=== PATIENT | male | born 1945 | race Caucasian/White ===

== ENCOUNTER 2019-08-14 11:20 | Emergency (ER) | payer OTHER, SELFPAY ==
[2019-08-14 11:25] VITALS: BP 155/85; PULSE 98; RESP 22; TEMP 36.6; O2SAT 94; BMI 40.3
--- NOTE | 2019-08-14 12:01 | XR_ITS ---
WS: [id number] PORTABLE CHEST HISTORY: cough/congestion COMPARISON: 04/11/2018 New interstitial thickening in the lower lung carson bilaterally. Pulmonary vasculature is normal. No pleural effusion or pneumothorax. Cardiac size: Mildly enlarged cardiac silhouette. Mediastinum/Aorta: Mild ectasia aorta. Bilateral AC joint arthritis. XR/XR chest 1V portable [id number] IMPRESSION: Mild bilateral lower lobe interstitial thickening and peribronchial inflammator y changes.
--- NOTE | 2019-08-14 12:10 | W.ED.GENADLT ---
HPI - General Adult General: Chief complaint: General Medical Stated complaint: cough/sob Time Seen by Provider: 08/14/19 12:10 Source: patient and family Mode of arrival: ambulatory Limitations: no limitations History of Present Illness: HPI narrative: Patient is a 74-year-old male here with his for complaints of a productive cough, chest congestion, nasal discharge/congestion, sinus pressure over the past 3 to 4 days; denies chest pain, SOB, difficulty breathing, hemoptysis, or fevers Onset (ago): day(s) Associated symptoms: Deny chest pain, dyspnea, headache(s), nausea, rash, palpitations or vomiting Review of Systems Const: Reports: body aches; Denies: fever, chills or fatigue Eyes: Denies: change in vision, blurry vision, photophobia, eye discomfort or eye discharge ENMT: Reports: throat pain, painful swallowing, nasal discharge, nasal congestion, post nasal drip and facial/sinus pain; Denies: enlarged tonsils, swelling of lips/tongue, oral sores/lesions, ear pain or ear discharge Card: Denies: chest pain, palpitations, lightheadedness or pre-syncope Resp: Reports: productive cough and chest congestion; Denies: shortness of breath, non-productive cough, wheezing, stridor, pain on inspiration, change in phlegm color or coughing up blood GI: Denies: abdominal pain, nausea or vomiting : Denies: flank pain, difficulty urinating or painful urination Musc: Denies: neck pain or back pain Skin/Breast: Denies: rash Neuro: Denies: headache All/Imm: Denies: facial swelling or seasonal allergies PFSH ED PFSH: Statuses (acute, chronic, etc) shown below reflect problem list status as previously entered and may not be historically accurate Social History Smoking and tobacco status: former smoker Physical Exam Const: COMMON NORMALS: no apparent distress, average body habitus, oriented x3, alert and well nourished HENMT: COMMON NORMALS: normocephalic, head/scalp atraumatic, hearing grossly normal bilaterally, external ears normal, EAC's normal, TM's normal bilaterally, external nose normal, nasal mucous membranes and turbinates normal, moist oral mucous membranes and oropharynx normal HEAD & SCALP: normocephalic and atraumatic FACE & SINUS: normal facial exam and sinuses nontender NOSE: external nose normal and nasal mucous membranes and turbinates normal EXTERNAL EAR: Yes external ears normal EXTERNAL AUDITORY CANAL: EAC's normal TYMPANIC MEMBRANE: TM's normal bilaterally THROAT: posterior oropharynx normal, tonsils normal and uvula midline Eye: COMMON NORMALS: PERRL, EOMs intact bilaterally and conjunctivae normal CONJUNCTIVA: Yes conjunctivae normal PUPIL: Yes PERRL Neck/C-Spine: COMMON NORMALS: no lymphadenopathy Resp: COMMON NORMALS: normal respiratory effort and clear to auscultation bilaterally AUSCULTATION: clear to auscultation bilaterally Cardio: COMMON NORMALS: regular rate and regular rhythm RATE: regular rate RHYTHM: regular rhythm Neuro: COMMON NORMALS: oriented x3 SENSORIUM/ORIENTATION: Yes alert Skin: COMMON NORMALS: no rashes or lesions noted GENERAL SKIN EXAM: no rashes or lesions noted Course Vital Signs: Vital signs: Vital Signs Temperature 97.8 F 08/14/19 11:25 Pulse Rate 92 08/14/19 12:11 Respiratory Rate 18 08/14/19 12:11 Blood Pressure 132/75 08/14/19 12:11 Pulse Oximetry 96 08/14/19 12:11 MDM - General Adult MDM Narrative: Medical decision making narrative: pt clinically appears well, vitals are stable; labs are non-concerning; CXR shwoing some bilateral interstitial thinking/peribronchial inflammation; given his hx of COPD, I will go ahead and place him on levaquin and give him something for the cough; recommends he follows up with PCP in a few days for re-evaluation; return to ED precautions given Lab Data: Labs: Lab Results 08/14/19 08/14/19 08/14/19 Range/Units 12:23 12:24 12:24 WBC 9.1 (4.0-10.0) 10^3/ uL RBC 4.49 (4.1-5.3) 10^6/u L Hgb 14.0 (11.7-16.6) g/dL Hct 42.0 (42.0-52.0) % MCV 93.5 (80-94) fL MCH 31.2 (28.0-34.0) pg MCHC 33.3 (30.0-36.0) g/dL RDW 11.7 L (12.1-15.1) % Plt Count 160 (130-400) 10^3/c mm MPV 10.4 (7.4-10.4) fL Neut % (Auto) 67.1 % Lymph % (Auto) 19.6 % Kimball % (Auto) 8.4 % Eos % (Auto) 4.0 % Baso % (Auto) 0.5 % Neut # (Auto) 6.1 (1.8-7.7) 10^3/u L Lymph # (Auto) 1.8 (0.8-4.8) 10^3/u L Kimball # (Auto) 0.8 (0.2-0.9) 10^3/u L Eos # (Auto) 0.4 (0.0-0.8) 10^3/u L Baso # (Auto) 0.1 (0.0-0.1) 10^3/u L Nucleated RBC % (a uto) 0 % Nucleated RBCs # 0.0 /100WBC Sodium 136 (136-145) mmol/L Potassium 3.9 (3.5-5.1) mmol/L Chloride 98 (98-107) mmol/L Carbon Dioxide 23 (22-29) mmol/L Anion Gap 18.9 (5-19) BUN 16 (8-23) mg/dL Creatinine 0.8 (0.7-1.2) mg/dL Glucose 264 H (74-106) mg/dL Calcium 10.0 (8.8-10.2) mg/Dl Total Bilirubin 0.6 (0.15-1.2) mg/dL AST 22 (0-40) U/L ALT 22 (0-41) U/L Alkaline Phosphata se 138 H (40-130) IU/L Total Protein 8.2 (6.6-8.7) g/dL Albumin 3.9 (3.5-5.2) g/dL Globulin 4.3 (1.3-4.6) g/dL Influenza Type A A g Negative (Negative) POC Influenza B Ag Negative (Negative) Imaging Data^: CXR: Radiologist's impression: [address] [address] XRay Report Signed Patient: Pasha Cobb Unit #: [id number] : 1945 Age/Sex: 74 / M ADM Date: 08/14/19 Loc: ER Room/Bed: Attending Dr: Ordering Provider/Ordering MD: Fabiola Horn Date of Service: 08/14/19 Procedure(s): XR chest 1V portable [id number] Accession Number(s): [id number] Report Number: [id number] WS: [id number] PORTABLE CHEST HISTORY: cough/congestion COMPARISON: 04/11/2018 New interstitial thickening in the lower lung carson bilaterally. Pulmonary vasculature is normal. No pleural effusion or pneumothorax. Cardiac size: Mildly enlarged cardiac silhouette. Mediastinum/Aorta: Mild ectasia aorta. Bilateral AC joint arthritis. XR/XR chest 1V portable [id number] IMPRESSION: Mild bilateral lower lobe interstitial thickening and peribronchial inflammatory changes. Dictated By: Ana Christensen DO Signed By: Ana Christensen DO Signed Date/Time: 08/14/19 1240 DD/ 1239 Discharge Plan Discharge Patient Disposition: Home, Self-Care Clinical Impression: Acute bacterial bronchitis Condition: Stable Prescriptions: New promethazine-codeine 6.25-10 mg/5 mL syrup 5 ml PO Q4H PRN (Reason: cough) Qty: 150 RF: 0 Levaquin 750 mg tablet 750 mg PO DAILY 5 Days Qty: 5 RF: 0 Discharge Orders: Discharge Order (Routine); Ordered 08/14/19 Ordered By: Fabiola Horn Referrals: Eduardo Jasmine [Primary Care Provider] - Discharge Diet: Usual diet Discharge Activity: Increase activity as tolerated Activity Restrictions/Additional Instructions: Please follow-up with primary care in 3 to 5 days if you are not improving. Return to emergency department for any worsening symptoms, difficulty breathing, shortness of breath, chest pains, or fevers greater than 100.4. Coding Level of Care Code ED Healthcare Advisory Services Manager for Chg Fwd Exam Problem Focused
[2019-08-14 12:11] VITALS: BP 132/75; PULSE 92; RESP 18; O2SAT 96
--- NOTE | 2019-08-14 12:14 | PC.NURSE ---
Patient states that Donald he began to get sick. Patient reports that he has had cough, congestion, headache, fever, stomach pain, chills, and weakness. Patient does report a history of COPD.
[2019-08-14 12:32] LABS: Basophils # 0.1 10^3/uL (0.0-0.1); Basophils % 0.5 %; Eosinophils # 0.4 10^3/uL (0.0-0.8); Lymphocytes # 1.8 10^3/uL (0.8-4.8); Lymphocytes % 19.6 %; Mean Corpuscular HGB Conc 33.3 g/dL (30.0-36.0); Mean Corpuscular Hemoglobin 31.2 pg (28.0-34.0); Mean Corpuscular Volume 93.5 fL (80-94); Mean Platelet Volume 10.4 fL (7.4-10.4); Monocytes # 0.8 10^3/uL (0.2-0.9); Monocytes % 8.4 %; Neutrophils # 6.1 10^3/uL (1.8-7.7); Neutrophils % 67.1 %; Nucleated Red Blood Cells % 0 %; Platelet Count 160 10^3/cmm (130-400); Red Blood Count 4.49 10^6/uL (4.1-5.3); Red Cell Distribution Width 11.7 % (12.1-15.1); White Blood Count 9.1 10^3/uL (4.0-10.0)
[2019-08-14 12:50] LABS: Alanine Aminotransferase 22 U/L (0-41); Albumin Level 3.9 g/dL (3.5-5.2); Alkaline Phosphatase 138 IU/L (40-130); Anion Gap 18.9 (5-19); Aspartate Amino Transferase 22 U/L (0-40); Blood Urea Nitrogen 16 mg/dL (8-23); Carbon Dioxide 23 mmol/L (22-29); Chloride 98 mmol/L (98-107); Globulin 4.3 g/dL (1.3-4.6); Glucose 264 mg/dL (74-106); Potassium 3.9 mmol/L (3.5-5.1); Sodium 136 mmol/L (136-145); Total Bilirubin 0.6 mg/dL (0.15-1.2); Total Protein 8.2 g/dL (6.6-8.7)
[2019-08-14 12:52] LABS: Influenza A by IFA Negative (Negative); Influenza B by IFA Negative (Negative)
[2019-08-14 13:19] VITALS: BP 142/71; PULSE 88; RESP 18; O2SAT 92
== END 2019-08-14 13:20 | disposition home or self-care (01) ==
LOC: ER 13:13
PROVIDERS: Emergency Provider Physician Assistant; Family Provider Internal Medicine; PCP Internal Medicine
DX: J20.9 Acute bronchitis, unspecified (principal); Z87.891 Personal history of nicotine dependence
CPT/HCPCS: 36415; 71045; 80053; 85025; 87804; 99281

== ENCOUNTER → 2019-08-27 10:29 | Outpatient (BNVA) | payer OTHER, SELFPAY | PROVIDERS: Family Provider Internal Medicine; PCP Internal Medicine; Visit Provider Podiatrist Foot & Ankle Surgery | DX: M79.671 Pain in right foot (principal); M79.672 Pain in left foot | CPT/HCPCS: 73600; 73630; 77077 ==

== ENCOUNTER → 2019-09-17 11:07 | Outpatient (BNVA) | payer OTHER, SELFPAY | PROVIDERS: Family Provider Internal Medicine; PCP Internal Medicine; Visit Provider Podiatrist Foot & Ankle Surgery | DX: M79.671 Pain in right foot (principal); M79.672 Pain in left foot; M25.571 Pain in right ankle and joints of right foot; M77.32 Calcaneal spur, left foot | CPT/HCPCS: 73630 ==

== ENCOUNTER → 2019-09-18 13:46 | Outpatient (BNVA) | payer OTHER, SELFPAY | PROVIDERS: Family Provider Internal Medicine; PCP Internal Medicine; Visit Provider Anesthesiology | DX: M54.40 Lumbago with sciatica, unspecified side (principal); M54.2 Cervicalgia; M25.50 Pain in unspecified joint; Z79.891 Long term (current) use of opiate analgesic | CPT/HCPCS: 99213; 99214 ==

== ENCOUNTER → 2019-10-15 09:24 | Outpatient (BNVA) | payer OTHER, SELFPAY | PROVIDERS: Family Provider Internal Medicine; PCP Internal Medicine; Visit Provider Podiatrist Foot & Ankle Surgery | DX: M79.671 Pain in right foot (principal); M79.672 Pain in left foot; M25.571 Pain in right ankle and joints of right foot; S92.912A Unspecified fracture of left toe(s), initial encounter for closed fracture; S93.401A Sprain of unspecified ligament of right ankle, initial encounter; M25.372 Other instability, left ankle; M77.32 Calcaneal spur, left foot; M77.31 Calcaneal spur, right foot; M25.471 Effusion, right ankle; X58.XXXA Exposure to other specified factors, initial encounter | CPT/HCPCS: 73610; 77077 ==

== ENCOUNTER 2020-02-06 10:59 | Outpatient (CLI) | payer OTHER, SELFPAY ==
--- NOTE | 2020-02-06 11:21 | XR_ITS ---
WS: [id number] Left foot, 3 views, 02/06/2020 Clinical Data: fractures Comparison: Left foot, 10/15/2019 Findings: The fractures of the bases of the left fourth and fifth proximal phalanges remain unchanged. No new f ractures are seen. There is a bunion at the head of the left first metatarsal. The bimalleolar fractu re internal fixation remains unchanged. There is a plantar spur. XR/XR foot LT min 3V* [id number] Impression: 1. No change in appearance of fractures of bases of the left fourth and fifth p roximal phalange ease. 2. Stable appearance of bimalleolar fracture repair.
== END 2020-02-06 11:00 | disposition home or self-care (01) ==
PROVIDERS: Family Provider Internal Medicine; PCP Internal Medicine; Visit Provider Podiatrist Foot & Ankle Surgery
DX: S92.515D Nondisplaced fracture of proximal phalanx of left lesser toe(s), subsequent encounter for fracture with routine healing (principal); X58.XXXD Exposure to other specified factors, subsequent encounter
CPT/HCPCS: 73630

== ENCOUNTER → 2020-02-25 09:55 | Outpatient (BNVA) | payer OTHER, SELFPAY | PROVIDERS: Family Provider Internal Medicine; PCP Family Medicine; Visit Provider Internal Medicine Rheumatology | DX: L40.8 Other psoriasis (principal); Z79.899 Other long term (current) drug therapy; Z11.59 Encounter for screening for other viral diseases; Z11.1 Encounter for screening for respiratory tuberculosis; L40.50 Arthropathic psoriasis, unspecified | CPT/HCPCS: 36415; 99204 ==

== ENCOUNTER 2020-02-25 11:57 | Outpatient (CLI) | payer OTHER, SELFPAY ==
--- NOTE | 2020-02-25 12:08 | XR_ITS ---
WS: [id number] FOOT RIGHT TECHNIQUE: 3 views of the right foot CLINICAL INFORMATION: psoriatic arthritis COMPARISON: None. FINDINGS: Osteopenia. Mild hallux valgus. Soft tissue edema. Plantar calcaneal spurring. No evidence of acute fracture or dislocation. Normal tarsal metatarsal alignment. Normal calcaneus. N ormal visualized talar dome. XR/XR foot RT min 3V* [id number] IMPRESSION: No acute right foot findings.
--- NOTE | 2020-02-25 12:08 | XR_ITS ---
WS: [id number] CERVICAL SPINE TECHNIQUE: 3 views of the cervical spine CLINICAL INFORMATION: psoriatic arthritis COMPARISON: None. FINDINGS: Straightening of the normal cervical lordosis. Mild spondylitic changes. Mild disc space narrowing C4 -C5. Normal prevertebral soft tissues. Moderate facet arthropathy in the mid cervical spine. Normal C 1-2 articulation. Mild anterior wedging in the upper thoracic spine at T3 and T4 XR/XR cervical spine 3V* [id number] IMPRESSION: 1. Moderate spondylitic changes 2. Mild anterior wedging upper thoracic spine at T3 and T4.
--- NOTE | 2020-02-25 12:08 | XR_ITS ---
WS: [id number] FOOT LEFT TECHNIQUE: 3 views of the left foot CLINICAL INFORMATION: psoriatic arthritis COMPARISON: None. FINDINGS: Stable fractures involving the bases of the fourth and fifth proximal phalanges. Normal tarsal metata rsal alignment. Normal calcaneus. Normal visualized talar dome. Osteopenia. Prominent plantar calcane al spur. Postoperative changes distal fibula with plate and screw fixation. Screw fixation across the ankle mortise. XR/XR foot LT min 3V* [id number] IMPRESSION: 1. Osteopenia with postoperative changes described above. 2. Stable fractures involving the base of the fourth and fifth proximal phalan ges. 3. Prominent plantar calcaneal spurring.
--- NOTE | 2020-02-25 12:08 | XR_ITS ---
WS: [id number] PROCEDURE: XR chest 2V* [id number] CLINICAL INFORMATION: psoriatic arthritis COMPARISON: August 14, 2019 FINDINGS: Heart: Normal cardiac silhouette. Lungs: Moderate chronic emphysematous changes. No acute pulmonary infiltrates. Bones: Mild thoracic curve convex right. Mild thoracic kyphosis. XR/XR chest 2V* [id number] IMPRESSION: No acute chest findings.
--- NOTE | 2020-02-25 12:08 | XR_ITS ---
WS: [id number] HAND LEFT TECHNIQUE: 3 views of the left hand CLINICAL INFORMATION: psoriatic arthritis COMPARISON: None. FINDINGS: Normal metacarpals. Normal MCP joint. Metacarpal heads are normal in appearance. Normal PIP and DIP j oints. No evidence of acute fracture or dislocation. Radiocarpal joint: Normal. Carpal bones: Normal. XR/XR hand LT min 3V* [id number] IMPRESSION: Normal left hand.
--- NOTE | 2020-02-25 12:08 | XR_ITS ---
WS: [id number] HAND RIGHT TECHNIQUE: 3 views of the right hand CLINICAL INFORMATION: psoriatic arthritis COMPARISON: None. FINDINGS: Normal metacarpals. Normal MCP joint. Metacarpal heads are normal in appearance. Normal PIP and DIP j oints. No evidence of acute fracture or dislocation. Radiocarpal joint: Normal. Carpal bones: Normal. XR/XR hand RT min 3V* [id number] IMPRESSION: Normal right hand.
== END 2020-02-25 11:58 | disposition home or self-care (01) ==
LOC: RADWPI 12:01
PROVIDERS: Family Provider Family Medicine; PCP Family Medicine; Visit Provider Internal Medicine Rheumatology
DX: L40.50 Arthropathic psoriasis, unspecified (principal); M48.54XA Collapsed vertebra, not elsewhere classified, thoracic region, initial encounter for fracture; M85.872 Other specified disorders of bone density and structure, left ankle and foot; S92.912A Unspecified fracture of left toe(s), initial encounter for closed fracture; M77.32 Calcaneal spur, left foot; Z79.899 Other long term (current) drug therapy; Z11.59 Encounter for screening for other viral diseases; X58.XXXA Exposure to other specified factors, initial encounter
CPT/HCPCS: 71046; 72040; 73130; 73630; 80076; 82306; 82565; 85025; 85651; 86140; 86431; 86480; 86704; 86803; 87340

== ENCOUNTER 2020-10-16 10:16 | Outpatient (CLI) | payer OTHER, SELFPAY ==
--- NOTE | 2020-10-16 10:28 | CT_ITS ---
WS: [id number] CT NECK TECHNIQUE: Contrast-enhanced CT of the neck with coronal and sagittal reformatted images. CLINICAL INFORMATION: ACUTE CONTACT OTITIS EXTERNAL, LEFT EAR COMPARISON: None. DLP: 1657.[address] scans at [facility] use at least one of these dose optimization techniques: automat ed exposure control; mA and/or kV adjustment per patient size (includes targeted exams where dose is matched to clinical indication); or iterative reconstruction. FINDINGS: Parotid glands are normal. Normal submandibular glands. Right mastoid air cells well aerated. Prior p ostoperative changes canal wall up left mastoidectomy. Mastoidectomy bowl is well aerated. Paranasal sinuses are well aerated. Small retention cyst right maxillary sinus. Normal parapharyngeal fat. Normal posterior nasopharynx. No cervical lymphadenopathy. No evidence of supraglottic or glottic mass. Normal thyroid gland. Lung apices are well aerated. Mild spondylitic ch anges cervical spine. CT/CT neck w con* [id number] IMPRESSION: 1. Prior postoperative changes canal wall up left mastoidectomy. Mastoidectomy bowl is well aerated. Minimal mucosal thickening in the left mastoid tip. 2. Right mastoid air cells and paranasal sinuses are well aerated. Small reten tion cyst right maxillary sinus. 3. No cervical lymphadenopathy. 4. Salivary glands are normal. 5. Middle ears are well aerated bilaterally.
[2020-10-16 10:52] LABS: Blood Urea Nitrogen 15 mg/dL (8-23)
[2020-10-16] MEDS: iohexol 300 mg/mL 100 mL Btl IV (10:59)
== END 2020-10-16 10:17 | disposition home or self-care (01) ==
LOC: RADWPI 10:17
PROVIDERS: PCP Family Medicine; Visit Provider Specialist
DX: H60.532 Acute contact otitis externa, left ear (principal); H92.02 Otalgia, left ear; J34.1 Cyst and mucocele of nose and nasal sinus
CPT/HCPCS: 70491; 82565; 84520; Q9967

== ENCOUNTER 2021-03-04 11:18 | Emergency (ER) | payer OTHER, MEDICARE, SELFPAY ==
[2021-03-04 12:13] VITALS: BP 148/80; PULSE 74; RESP 18; TEMP 36.6; O2SAT 93; BMI 36.8
--- NOTE | 2021-03-04 12:47 | W.ED.BACK ---
HPI - Back Pain/Injury General: Chief Complaint: Back Pain/Injury Stated Complaint: Lower back pain Time Seen by Provider: 03/04/21 12:28 History of Present Illness: HPI Narrative: Patient complains about low back pain. Has history of back problems. Been on tractor digging up rocks in his yard for the last couple weeks and back started hurting. Patient denies any problems urination denies any hematuria difficulty urination or abdominal discomfort no nausea vomiting fever chills. Hurts to get up out of a chair to walk around and to set up with the pain being located low back MD elicited complaint: back pain Pertinent past history: prior back pain Onset (ago): week(s) Timing: intermittent Similar Symptoms Previously: Yes Quality: aching Location: lumbar spine Radiation: none Exacerbating factors: movement, sitting upright and walking Relieving factors: immobilization Associated symptoms: Reports no associated symptoms; Deny abdominal pain, chills, fever(s), nausea or vomiting Review of Systems Const: Denies: fever(s), chills or body aches Eyes: Denies: change in vision or blurry vision ENMT: Denies: throat pain or nasal congestion Card: Denies: chest pain or dyspnea on exertion Resp: Denies: dyspnea, productive cough or non-productive cough GI: Denies: abdominal pain, nausea or vomiting : Denies: difficulty urinating Musc: Reports: back pain; Denies: extremity pain Skin/Breast: Denies: rash Neuro: Denies: headache(s) Psych: Denies: anxiety or depression Robin/Lymph: Denies: easy bruising PFS ED PFSH: Medical History (Updated 03/04/21 @ 12:37 by DIMAS Perea) Acquired hammer toe Acute back pain with sciatica Acute carpal tunnel syndrome of left wrist Acute carpal tunnel syndrome of right wrist Acute joint pain Diabetes mellitus Encounter for long-term opiate analgesic use High risk medication use History of [place] spotted fever Hyperlipidemia Immunization counseling Other instability, left ankle Post-traumatic arthritis of left ankle Psoriasis Psoriatic arthritis PVD (peripheral vascular disease) Thoracic outlet syndrome Venous stasis Surgical History History of angioplasty History of cholecystectomy Family History Other CAD (coronary artery disease) Cancer Diabetes Hyperlipidemia Hypertension Denies family history of Rheumatoid arthritis Lupus Social History Smoking and tobacco status: former smoker Second hand smoke exposure: No Alcohol intake: never History of recent travel: No Physical Exam Const: COMMON NORMALS: no acute distress : COMMON NORMALS: Yes no CVA tenderness BLADDER/KIDNEY EXAM: Yes no CVA tenderness Back/Pelvis: COMMON NORMALS: no CVA tenderness LUMBAR SPINE/LOWER BACK: Yes normal to inspection and Yes lumbar ROM normal Psych: COMMON NORMALS: mental status grossly normal Course Vital Signs: Vital signs: Vital Signs Temperature 97.8 F 03/04/21 12:13 Pulse Rate 74 03/04/21 12:13 Respiratory Rate 18 03/04/21 12:13 Blood Pressure 148/80 03/04/21 12:13 Pulse Oximetry 93 03/04/21 12:13 Discharge Plan Discharge Patient Disposition: Home Clinical Impression: Acute exacerbation of chronic low back pain Condition: Stable Prescriptions: New prednisone 20 mg tablet 20 mg PO DAILY Qty: 7 RF: 0 Celebrex 100 mg capsule 100 mg PO BID Qty: 20 RF: 0 No Action (DME) Diabetic shoes with molded inserts See Rx Instructions .Route .MEDSUPPLY Qty: 1 RF: 0 alendronate 70 mg tablet PO .weekly RF: 0 mometasone 0.1 % solution 1 applic TOPICAL DAILY Qty: 60 RF: 3 ketoconazole 2 % shampoo 1 applic TOPICAL .2 x weekly Qty: 120 RF: 3 triamcinolone acetonide 0.1 % ointment 1 applic TOPICAL BID Qty: 453.6 RF: 2 tramadol 50 mg tablet 50 mg PO BID PRNRF: 0 baclofen 20 mg tablet 20 mg PO QID RF: 0 albuterol sulfate [ProAir HFA] 90 mcg/actuation HFA aerosol inhaler 2 puff INHALATION Q6H PRNRF: 0 aspirin [Adult Low Dose Aspirin] 81 mg tablet,delayed release (DR/EC) 81 mg PO DAILY RF: 0 dextran 70-hypromellose Dropperette 1 drop ophthalmic (eye) DAILY PRNRF: 0 lisinopril 5 mg tablet 5 mg PO DAILY RF: 0 metoprolol succinate 25 mg capsule,sprinkle,ER 24hr 25 mg PO DAILY RF: 0 tiotropium bromide 2.5 mcg/actuation mist 2 inh INHALATION QAM RF: 0 (DME) Diabetic shoes with inserts Qty: 1 RF: 0 metformin 1,000 mg tablet 500 mg PO BID RF: 0 Insulin SUBCUT RF: 0 montelukast 10 mg tablet 10 mg PO DAILY RF: 0 pregabalin 100 mg capsule 100 mg PO DAILY RF: 0 trazodone 100 mg tablet 100 mg PO .hs RF: 0 mupirocin 2 % ointment 1 applic TOPICAL BID Qty: 30 RF: 0 Tremfya 100 mg/mL auto-injector 100 mg SUBCUT ONCE Qty: 1 RF: 1 Tremfya 100 mg/mL auto-injector 100 mg SUBCUT ONCE Qty: 1 RF: 4 fluocinonide 0.05 % ointment 1 applic TOPICAL BID Qty: 60 RF: 4 Discharge Orders: Discharge ED (Routine); Ordered 03/04/21 Ordered By: Jeffrey De La Cruz Referrals: Ligia Parker MD [Primary Care Provider] - Discharge Diet: As Directed Discharge Activity: Increase activity as tolerated Patient Instructions: Low Back Strain (ED), Back Pain (ED) Activity Restrictions/Additional Instructions: Follow-up with medical provider as directed. Take medications as prescribed. Return to the ER or your medical provider if condition worsens. Please read and understand discharge instructions. If any questions ask please. Alternate ice and heat to the low back. No heavy lifting. Stay off the tractor for next couple weeks. [facility] noted. 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
== END 2021-03-04 12:54 | disposition home or self-care (01) ==
PROVIDERS: Emergency Provider Nurse Practitioner Family; PCP Family Medicine
DX: M54.5 Low back pain (principal); G89.29 Other chronic pain; E78.5 Hyperlipidemia, unspecified; E11.51 Type 2 diabetes mellitus with diabetic peripheral angiopathy without gangrene; Z79.4 Long term (current) use of insulin; Z87.891 Personal history of nicotine dependence
CPT/HCPCS: 99281

== ENCOUNTER 2021-04-09 10:04 | Outpatient (CLI) | payer OTHER, MEDICARE, SELFPAY ==
[2021-04-09 10:58] LABS: Basophils % 0.5 %; Eosinophils # 0.2 10^3/uL (0.0-0.8); Eosinophils % 2.5 %; Hematocrit 42.1 % (42.0-52.0); Lymphocytes # 1.5 10^3/uL (0.8-4.8); Lymphocytes % 19.8 %; Mean Corpuscular HGB Conc 33.3 g/dL (30.0-36.0); Mean Corpuscular Volume 96.1 fl (80-94); Monocytes # 0.5 10^3/uL (0.2-0.9); Neutrophils # 5.36 10^3/uL (1.8-7.7); Neutrophils % 69.9 %; Nucleated Red Blood Cells % 0 %; Platelet Count 134 10^3/cmm (130-400); Red Blood Count 4.38 10^6/uL (4.1-5.3); Red Cell Distribution Width 12.5 % (12.1-15.1); White Blood Count 7.7 10^3/uL (4.0-10.0)
[2021-04-09 11:27] LABS: Alanine Aminotransferase 30 U/L (0-41); Alkaline Phosphatase 91 IU/L (40-130); Anion Gap 12.3 (5-19); Aspartate Amino Transferase 30 U/L (0-40); Blood Urea Nitrogen 12 mg/dL (8-23); Calcium 8.8 mg/dL (8.5-10.5); Carbon Dioxide 30 mmol/L (22-29); Chloride 100 mmol/L (98-107); Globulin 3.1 g/dL (1.3-4.6); Glucose 259 mg/dL (65-115); Osmolality Calculated 295 mOsm/kg (285-295); Potassium 4.3 mmol/L (3.5-5.1); Sodium 138 mmol/L (136-145); Total Bilirubin 0.5 mg/dL (0.15-1.2); Total Protein 7.1 g/dL (6.6-8.7)
[2021-04-09 11:28] LABS: HIV 1 & 2 Antibody Non-Reactive (Non-Reactiv); HIV 1 & 2 Antigen Non-Reactive (Non-Reactiv)
[2021-04-09 11:50] LABS: Hepatitis A Antibody IgM Non-Reactive (Nonreactive); Hepatitis B Core AB, Total Non-Reactive (Nonreactive); Hepatitis B Surface AB 3.5 (11.5-1000); Hepatitis B Surface Antigen Non-Reactive (Nonreactive); Hepatitis C Virus Antibody Non-Reactive (Nonreactive)
[2021-04-11 13:02] LABS: Quantiferon Mitogen >10.00 IU/mL; Quantiferon Nil 0.02 IU/mL; Quantiferon TB Gold NEGATIVE (NEGATIVE)
== END 2021-04-09 10:05 | disposition home or self-care (01) ==
PROVIDERS: PCP Family Medicine; Visit Provider Dermatology
DX: Z79.899 Other long term (current) drug therapy (principal); L40.9 Psoriasis, unspecified; L40.50 Arthropathic psoriasis, unspecified
CPT/HCPCS: 36415; 80053; 85025; 86480; 86705; 86706; 86709; 86803; 87340; 87806

== ENCOUNTER 2021-05-14 06:51 | Outpatient (CLI) | payer OTHER, SELFPAY ==
[2021-05-14 07:09] VITALS: BMI 40.6
--- NOTE | 2021-05-14 07:56 | NMCV_ITS ---
NM jennifer perf SPECT r/s* [id number] Pasha Cobb Age: 76 Gender: M : 1945 Exam Date: 05/14/2021 08:14 Ordering Phys: Josr Romero MD Technologist: ONUR Garcia Exam Location: [facility] Indications: SHORTNESS OF BREATH STRESS TEST Please see separate stress test report in [facility] for full findings IMAGE PROTOCOL Rest/Stress 1 Lexiscan Day Radiopharmaceutical Dose (mCi) Administration Site Administered by Rest: Tc-99m 10.9 IV ONUR Elder Sestamibi Stress:Tc-99m 32.6 IV ONUR Elder Sestamibi Rest: 14-May-2021 60 Discovery 630 Stress: 14-May-2021 30 Discovery 630 0.4mg Lexiscan. Images obtained in supine and prone position. SPECT RESULTS Technical Quality: Excellent Raw Data Analysis: Normal Image Corrections: No attenuation or motion correction applied Summed Stress Score: 0 Summed Rest Score: 1 Summed Difference Score: 0 PERFUSION FINDINGS Slightly decreased tracer uptake was noted in the inferior wall region. No significant reversibility was noted in this area. FUNCTIONAL RESULTS (calculated via Gated SPECT) Stress Image LV EF (%): 66 Stress EDV (mL):82 TID: 1.09 Stress ESV (mL):28 FUNCTIONAL FINDINGS: Segmental wall motion analysis revealing no gross wall motion normalities. IMPRESSIONS 1. Myocardial perfusion imaging revealing slightly decreased persistent tracer uptake in the inferior wall region, most likely represent attenuation artifact. 2. Normal LV ejection fraction 66%. 3. LV wall motion analysis revealing no gross wall motion normalities. 4. Normal LV volume. No significant coronary ischemia, based on the above findings Dr Ken Diaz MD FACC (Electronically Signed) Final Date: 14 May 2021 13:30 S
--- NOTE | 2021-05-14 07:56 | ECG_ITS ---
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 Interpretive Statements NAME OF STUDY: LEXISCAN SESTAMIBI STRESS TEST INDICATION: Shortness of Breath PROCEDURE: At the baseline, the EKG revealed sinus rhythm with a sinus arrhythmia. The baseline blood pressure was 137/80 mm Hg with a heart rate of 73 beats/min. Lexiscan was infused over a period of 20 seconds. A total of 0.4 milligrams of Lexiscan was infused. The stress phase was continued for a total of 5 minutes. Heart rate at the end of the stress phase was 81 with a blood pressure. The EKG at the peak infusion revealed no significant changes. Sestamibi was injected 20 seconds after the Lexiscan infusion. Blood pressure at the end of the recovery phase was 151/64 with a heart rate of 76 per minute. CONCLUSION: 1. No significant EKG changes with the LexiScan infusion 2. No LexiScan induced chest pain or cardiac arrhythmia 3. Normal blood pressure and heart rate response 4. Sestamibi/sestamibi perfusion scan pending; see separate report. Electronically Signed On 05-14-2021 23:40:56 CDT by Ken Diaz M.D. [email or web address]
[2021-05-14] MEDS: regadenoson 0.4 Mg/5 ml Syringe IVP (08:53)
[2021-05-14 09:08] VITALS: BP 149/65; PULSE 74
== END 2021-05-14 06:52 | disposition home or self-care (01) ==
LOC: CDL 06:52
PROVIDERS: PCP Family Medicine; Visit Provider Internal Medicine Pulmonary Disease
DX: R06.02 Shortness of breath (principal)
CPT/HCPCS: 78452; 93017; A9500; J2785

== ENCOUNTER 2021-05-25 12:35 | Emergency (ER) | payer OTHER, MEDICARE, SELFPAY ==
[2021-05-25 13:43] VITALS: BP 152/86; PULSE 72; RESP 16; TEMP 36.4; O2SAT 96; BMI 37.9
[2021-05-25 16:42] VITALS: BP 155/78; PULSE 67; RESP 16; O2SAT 97
--- NOTE | 2021-05-25 16:43 | PC.NURSE ---
WHILE WITH PT PT IS IN NAD.
--- NOTE | 2021-05-25 20:50 | XRR_ITS ---
PROCEDURE INFORMATION: Exam: XR Lumbosacral Spine Exam date and time: 05/25/2021 8:50 PM Age: 76 years old Clinical indication: Low back pain TECHNIQUE: Imaging protocol: XR of the lumbosacral spine. Views: 2 or 3 views. COMPARISON: No relevant prior studies available. FINDINGS: Bones/joints: No acute fracture. Normal alignment. There are severe diffuse degenerative changes and prominent syndesmophytes of probable diffuse idiopathic skeletal hyperostosis. Soft tissues: Unremarkable. XR/XR lumbar spine 2-3V* [id number] IMPRESSION: No acute bony abnormality. Radiation Dose CTDIVOL = (mGy): DLP = (mGy-cm)
--- NOTE | 2021-05-25 20:57 | W.ED.BACK ---
HPI - Back Pain/Injury General: Chief Complaint: Back Pain/Injury Stated Complaint: LOW LEFT BACK PAIN Time Seen by Provider: 05/25/21 20:46 Source: patient Mode of arrival: ambulatory Limitations: no limitations History of Present Illness: HPI Narrative: 76-year-old male states been having left lower back pain for months. States pain is sharp in nature is much worse with movement improved with rest. Denies any injury denies any bowel bladder incontinence denies any difficulty walking. Denies any abdominal pain. Associated symptoms: Deny abdominal pain, chills, dysuria, fever(s), nausea or vomiting Review of Systems Const: Denies: fever(s), chills, body aches or change in appetite Eyes: Denies: blurry vision or eye discomfort ENMT: Denies: throat pain or dental pain Card: Denies: chest pain Resp: Denies: dyspnea GI: Denies: abdominal pain, nausea, vomiting or diarrhea : Denies: dysuria Musc: Reports: back pain Skin/Breast: Denies: rash Neuro: Denies: headache(s) Psych: Denies: depression Robin/Lymph: Denies: easy bruising All/Imm: Denies: urticaria PFSH ED PFSH: Medical History (Updated 05/25/21 @ 21:17 by Yanni White MD) Acquired hammer toe Acute back pain with sciatica Acute carpal tunnel syndrome of left wrist Acute carpal tunnel syndrome of right wrist Acute joint pain Diabetes mellitus Encounter for long-term opiate analgesic use High risk medication use History of Golden spotted fever Hyperlipidemia Immunization counseling Other instability, left ankle Post-traumatic arthritis of left ankle Psoriasis Psoriatic arthritis PVD (peripheral vascular disease) Thoracic outlet syndrome Venous stasis Surgical History History of angioplasty History of cholecystectomy Family History Other CAD (coronary artery disease) Cancer Diabetes Hyperlipidemia Hypertension Denies family history of Rheumatoid arthritis Lupus Social History Smoking and tobacco status: former smoker Quit status (tobacco): has quit using tobacco Year quit tobacco: 1989 Former quit date comment: 1 ppd x 30 years Second hand smoke exposure: No Alcohol intake: never History of recent travel: No Physical Exam Const: COMMON NORMALS: no acute distress, patient oriented x3 and healthy appearing HENMT: COMMON NORMALS: normocephalic and atraumatic HEAD & SCALP: normocephalic and atraumatic Eye: COMMON NORMALS: Equal, round and reactive pupils present and EOMs intact bilaterally PUPIL: Yes Equal, round and reactive pupils present Neck/C-Spine: COMMON NORMALS: full ROM and supple Chest: COMMONS NORMALS: normal inspection of the chest and normal palpation of entire chest wall Resp: COMMON NORMALS: normal respiratory effort, No retractions, No use of accessory muscles and clear to auscultation bilaterally AUSCULTATION: clear to auscultation bilaterally Cardio: COMMON NORMALS: regular rate, regular rhythm and No murmurs present (Cardio) RATE: regular rate RHYTHM: regular rhythm GI: COMMON NORMALS: Normal to inspection, nondistended, normoactive bowel sounds present, Soft to palpation, non-tender and no masses PALPATION: Yes Soft to palpation Back/Pelvis: OTHER: Tenderness over left lower back no saddle anesthesia no weakness no midline tenderness Extremity: COMMON NORMALS: normal to inspection and full ROM Neuro: COMMON NORMALS: patient oriented x3, moves all extremities and no focal motor deficits Psych: COMMON NORMALS: mental status grossly normal, Normal thought process present and cooperative THOUGHT PROCESS: Normal thought process present Skin: COMMON NORMALS: no rashes or lesions noted and no wounds GENERAL SKIN EXAM: no rashes or lesions noted Course Vital Signs: Vital signs: Vital Signs Temperature 97.6 F 05/25/21 13:43 Pulse Rate 67 05/25/21 16:42 Respiratory Rate 16 05/25/21 16:42 Blood Pressure 155/78 05/25/21 16:42 Pulse Oximetry 97 05/25/21 16:42 MDM - Back Pain/Injury MDM Narrative: Medical decision making narrative: Patient presents here with low back pain likely muscular in nature patient has no signs of epidural abscess or cord compression we will place him on Naprosyn Robaxin he is to follow-up PCP and return if worsening. Imaging Data^: xr lumbar: Attestation: I personally reviewed and interpreted this imaging study as follows: My impression: no acute fx Discharge Plan Discharge Patient Disposition: Home Clinical Impression: Low back pain Qualifiers: Chronicity: acute Back pain laterality: left Sciatica presence: without sciatica Qualified Code(s): M54.50 - Low back pain, unspecified Condition: Stable Prescriptions: New methocarbamol 750 mg tablet 750 mg PO Q6H PRN (Reason: spasms) Qty: 20 RF: 0 Naprosyn 500 mg tablet 500 mg PO BID PRN (Reason: pain) Qty: 20 RF: 0 No Action (DME) Diabetic shoes with molded inserts See Rx Instructions .Route .MEDSUPPLY Qty: 1 RF: 0 alendronate 70 mg tablet PO .weekly RF: 0 mometasone 0.1 % solution 1 applic TOPICAL DAILY Qty: 60 RF: 3 ketoconazole 2 % shampoo 1 applic TOPICAL .2 x weekly Qty: 120 RF: 3 triamcinolone acetonide 0.1 % ointment 1 applic TOPICAL BID Qty: 453.6 RF: 2 sertraline 100 mg tablet 100 mg PO DAILY RF: 0 guaifenesin 400 mg tablet 400 mg PO QID RF: 0 gabapentin 300 mg capsule 300 mg PO TID RF: 0 azelastine 137 mcg (0.1 %) aerosol,spray 2 spray intranasal BID RF: 0 losartan 25 mg tablet 25 mg PO DAILY Qty: 30 RF: 3 ipratropium-albuterol 0.5 mg-3 mg(2.5 mg base)/3 mL solution for nebulization 3 ml inhalation Q8H PRN (Reason: shortness of breath or wheezing) Qty: 180 RF: 3 albuterol sulfate 2.5 mg/0.5 mL solution for nebulization 5 mg inhalation Q6H PRN (Reason: shortness of breath or wheezing) Qty: 180 RF: 3 tramadol 50 mg tablet 50 mg PO BID PRNRF: 0 baclofen 20 mg tablet 20 mg PO QID RF: 0 albuterol sulfate [ProAir HFA] 90 mcg/actuation HFA aerosol inhaler 2 puff INHALATION Q6H PRNRF: 0 aspirin [Adult Low Dose Aspirin] 81 mg tablet,delayed release (DR/EC) 81 mg PO DAILY RF: 0 dextran 70-hypromellose Dropperette 1 drop ophthalmic (eye) DAILY PRNRF: 0 metoprolol succinate 25 mg capsule,sprinkle,ER 24hr 25 mg PO DAILY RF: 0 tiotropium bromide 2.5 mcg/actuation mist 2 inh INHALATION QAM RF: 0 (DME) Diabetic shoes with inserts Qty: 1 RF: 0 metformin 1,000 mg tablet 500 mg PO BID RF: 0 Insulin SUBCUT RF: 0 montelukast 10 mg tablet 10 mg PO DAILY RF: 0 pregabalin 100 mg capsule 100 mg PO DAILY RF: 0 trazodone 100 mg tablet 100 mg PO .hs RF: 0 mupirocin 2 % ointment 1 applic TOPICAL BID Qty: 30 RF: 0 Tremfya 100 mg/mL auto-injector 100 mg SUBCUT ONCE Qty: 1 RF: 1 apixaban 5 mg tablet 5 mg PO BID RF: 0 Tremfya 100 mg/mL auto-injector 100 mg SUBCUT ONCE Qty: 1 RF: 4 fluocinonide 0.05 % ointment 1 applic TOPICAL BID Qty: 60 RF: 4 prednisone 20 mg tablet 20 mg PO DAILY Qty: 7 RF: 0 Celebrex 100 mg capsule 100 mg PO BID Qty: 20 RF: 0 Discharge Orders: Discharge ED (Routine); Ordered 05/25/21 Ordered By: Yanni White Referrals: Ligia Parker MD [Primary Care Provider] - 1-3 days Discharge Diet: Advance as tolerated Discharge Activity: Resume usual activity Patient Instructions: Back Pain (ED) Coding Level of Care Code ED Furnace Helper for Cassidyg Fwd Exam Comprehensive
[2021-05-25] MEDS: HYDROcodone-acetaminophen 7.5-325 mg Tablet 1 TAB PO (21:20)
[2021-05-25 21:22] VITALS: PULSE 78; RESP 18; O2SAT 96
== END 2021-05-25 21:23 | disposition home or self-care (01) ==
PROVIDERS: Emergency Provider Emergency Medicine; PCP Family Medicine
DX: M54.50 Low back pain, unspecified (principal); E11.9 Type 2 diabetes mellitus without complications; Z79.4 Long term (current) use of insulin; Z79.84 Long term (current) use of oral hypoglycemic drugs; Z79.82 Long term (current) use of aspirin; Z87.891 Personal history of nicotine dependence
CPT/HCPCS: 72100; 99283

== ENCOUNTER → 2021-06-04 10:25 | Outpatient (BNVA) | payer OTHER, MEDICARE, SELFPAY | PROVIDERS: PCP Family Medicine; Referring Provider Internal Medicine Pulmonary Disease; Visit Provider Internal Medicine Pulmonary Disease | DX: Z20.822 Contact with and (suspected) exposure to COVID-19 (principal); R05.9 Cough, unspecified | CPT/HCPCS: 87635 ==

== ENCOUNTER 2021-06-12 09:48 | Outpatient (CLI) | payer OTHER, MEDICARE, SELFPAY ==
--- NOTE | 2021-06-12 13:30 | PFTS_ITS ---
Date of Study:06/12/21 Date of Dictation: MECHANICS: Forced vital capacity (FVC) is reduced. Forced expiratory volume in one second (FEV1) is reduced. FEV1/FVC is normal. FLOW VOLUME LOOP: Narrow. LUNG VOLUMES: Total lung capacity (TLC) is reduced. Residual volume (RV) is normal. DIFFUSING CAPACITY FOR CARBON MONOXIDE: Minimally reduced. INTERPRETATION: The postbronchodilator spirometry is consistent with moderate restriction. There is no significant postbronchodilator response. Lung volumes are consistent with restrictive lung disease. The patient has relatively preserved residual volume. This constellation of pulmonary function test can be seen with neuromuscular weakness but not exclusively. Gas exchange (DLCO) is minimally reduced. MTDD
== END 2021-06-12 09:49 | disposition home or self-care (01) ==
LOC: RT 09:50
PROVIDERS: PCP Family Medicine; Visit Provider Internal Medicine Pulmonary Disease
DX: R06.02 Shortness of breath (principal)
CPT/HCPCS: 94060; 94618; 94726; 94729; J7611

== ENCOUNTER → 2021-10-15 11:59 | Outpatient (BNVA) | payer OTHER, SELFPAY | PROVIDERS: PCP Family Medicine; Referring Provider Family Medicine; Visit Provider Internal Medicine | DX: M81.0 Age-related osteoporosis without current pathological fracture (principal); E13.65 Other specified diabetes mellitus with hyperglycemia; E78.2 Mixed hyperlipidemia; Z79.4 Long term (current) use of insulin | CPT/HCPCS: 99204 ==

== ENCOUNTER → 2021-11-17 08:41 | Outpatient (BNVA) | payer OTHER, SELFPAY | PROVIDERS: PCP Family Medicine; Visit Provider Internal Medicine Rheumatology | DX: M05.79 Rheumatoid arthritis with rheumatoid factor of multiple sites without organ or systems involvement (principal); L40.0 Psoriasis vulgaris; Z79.899 Other long term (current) drug therapy; Z71.89 Other specified counseling | CPT/HCPCS: 99214 ==

== ENCOUNTER → 2021-11-19 13:10 | Outpatient (BNVA) | payer OTHER, SELFPAY | PROVIDERS: PCP Family Medicine; Visit Provider Internal Medicine | DX: I48.91 Unspecified atrial fibrillation (principal); Z79.01 Long term (current) use of anticoagulants; I10 Essential (primary) hypertension; E78.2 Mixed hyperlipidemia; E11.9 Type 2 diabetes mellitus without complications; Z87.891 Personal history of nicotine dependence; Z79.4 Long term (current) use of insulin; Z79.84 Long term (current) use of oral hypoglycemic drugs | CPT/HCPCS: 93005; 99204 ==

== ENCOUNTER → 2021-12-18 10:24 | Outpatient (BNVA) | payer OTHER, SELFPAY | PROVIDERS: PCP Family Medicine; Visit Provider Internal Medicine | DX: M81.0 Age-related osteoporosis without current pathological fracture (principal); E13.65 Other specified diabetes mellitus with hyperglycemia; E78.2 Mixed hyperlipidemia; Z87.891 Personal history of nicotine dependence; Z79.4 Long term (current) use of insulin | CPT/HCPCS: 80053; 82306; 82310; 83036; 83970; 84439; 84443; 99214 ==

== ENCOUNTER 2021-12-22 12:12 | Emergency (ER) | payer OTHER, MEDICARE, SELFPAY ==
[2021-12-22 12:33] VITALS: BP 195/80; PULSE 72; RESP 18; TEMP 36.3; O2SAT 97; BMI 37.1
--- NOTE | 2021-12-22 12:58 | W.ED.BACK ---
HPI - Back Pain/Injury General: Chief Complaint: Back Pain/Injury Stated Complaint: Lower back pain Time Seen by Provider: 12/22/21 12:39 Source: patient Mode of arrival: ambulatory Limitations: no limitations History of Present Illness: Patient is a 76-year-old male who presents to ED today along with his for complaints of left-sided back pain. Patient tells me he has suffered from back pain for many years. He states he has spoken to PCP at the [facility] regarding this but has not undergone any thorough evaluation or treatment. Patient states over the past several days his pain has seemed to worsen. He states his pain today is similar to his chronic pain only worse in severity. He is not having any radicular symptoms. He is not complaining of urinary retention or bowel incontinence. MD elicited complaint: back pain Pertinent past history: prior back pain Onset (ago): day(s) Timing: constant Severity: severe Similar Symptoms Previously: Yes Location: left lower back Radiation: none Relieving factors: none Associated symptoms: Deny abdominal pain, chills, change in bowel habits, difficulty walking, dysuria, fatigue, fever(s), hematuria, nausea or vomiting Work related injury: No Review of Systems Const: Denies: fever(s), chills, body aches, fatigue or malaise Card: Denies: chest pain Resp: Denies: dyspnea GI: Denies: abdominal pain, nausea, vomiting, diarrhea or change in bowel habits : Denies: flank pain, dysuria, hematuria, genital pain or testicular pain Musc: Reports: back pain; Denies: neck pain, extremity pain, extremity swelling, joint pain or joint swelling Skin/Breast: Denies: rash Neuro: Denies: numbness in extremities, weakness in extremities, sensory changes or difficulty walking [facility] ED PFSH: Medical History Acquired hammer toe Acute back pain with sciatica Acute carpal tunnel syndrome of left wrist Acute carpal tunnel syndrome of right wrist Acute joint pain Diabetes mellitus Encounter for long-term opiate analgesic use High risk medication use History of Melvina spotted fever Hyperlipidemia Immunization counseling Other instability, left ankle Plaque psoriasis Post-traumatic arthritis of left ankle Psoriasis PVD (peripheral vascular disease) Seropositive rheumatoid arthritis of multiple sites Thoracic outlet syndrome Venous stasis Surgical History History of angioplasty History of cholecystectomy Family History Other CAD (coronary artery disease) Cancer Diabetes Hyperlipidemia Hypertension Denies family history of Rheumatoid arthritis Lupus Social History Smoking and tobacco status: former smoker Quit status (tobacco): has quit using tobacco Year quit tobacco: 1989 Former quit date comment: 1 ppd x 30 years Second hand smoke exposure: No Alcohol intake: never History of recent travel: No Physical Exam Const: COMMON NORMALS: no acute distress, patient oriented x3, no limitations and alert GENERAL APPEARANCE: cooperative NUTRITIONAL APPEARANCE: overweight ORIENTATION/CONSCIOUSNESS: Yes awake, Yes oriented to person, Yes oriented to place and Yes oriented to time Chest: COMMONS NORMALS: normal inspection of the chest and normal palpation of the breasts BREAST/AXILLA PALPATION: Yes normal palpation of the breasts Resp: COMMON NORMALS: normal respiratory effort and clear to auscultation bilaterally AUSCULTATION: clear to auscultation bilaterally Cardio: COMMON NORMALS: regular rate and regular rhythm RATE: regular rate RHYTHM: regular rhythm Back/Pelvis: THORACIC SPINE/UPPER BACK: Yes normal to inspection, No thoracic spinal tenderness, No paraspinal muscle tenderness and No paraspinal muscle spasm LUMBAR SPINE/LOWER BACK: Yes normal to inspection, No lumbar spinal tenderness, Yes paraspinal muscle tenderness Lumbar paraspinal muscle tenderness: left, No paraspinal muscle spasm and Yes straight leg raise negative bilaterally BACK IMAGE (MALE): 1. TTP Extremity: COMMON NORMALS: normal to inspection GENERAL: Yes normal exam except as noted Neuro: THOMAS COMA SCALE: document GCS findings Sturdivant coma scale eye opening: Spontaneous Thomas coma scale verbal response: Orientated Thomas coma scale motor response: Obey commands Sturdivant coma scale total score: 15 COMMON NORMALS: patient oriented x3, moves all extremities, no focal motor deficits, no sensory deficits noted and gait normal SENSORIUM/ORIENTATION: Yes alert, Yes oriented to person, Yes oriented to place and Yes oriented to time MOTOR EXAM: 5/5 motor strength present throughout Skin: COMMON NORMALS: no rashes or lesions noted GENERAL SKIN EXAM: no rashes or lesions noted Course Vital Signs: Vital signs: Vital Signs Temperature 97.3 F L 05/31/22 12:33 Pulse Rate 72 12/22/21 12:33 Respiratory Rate 18 12/22/21 12:33 Blood Pressure 195/80 12/22/21 12:33 Pulse Oximetry 97 12/22/21 12:33 MDM - Back Pain/Injury Medical Decision Making Patient reports his pain is down from a 10/10 to a 2-3/10. He states he is able to ambulate currently much better than he has been over the past couple of days. Will place patient on steroids, NSAIDs, and muscle relaxers at home and [facility] if symptoms do not seem to improve for further evaluation and treatment. Discharge Plan Discharge Patient Disposition: Home Clinical Impression: Acute exacerbation of chronic low back pain Condition: Stable Prescriptions: New methocarbamol 750 mg tablet 1,500 mg PO Q8H Qty: 30 0RF Medrol (Nakul) 4 mg tablets,dose pack See Rx Instructions .ROUTE .COMPLEX Qty: 21 0RF Rx Instructions: orally per package directions Continued Naprosyn 500 mg tablet 500 mg PO BID PRN (Reason: pain) Qty: 20 0RF Discontinued celecoxib [Celebrex] 100 mg capsule 100 mg PO BID Qty: 20 0RF No Action (DME) Diabetic shoes with molded inserts See Rx Instructions .Route .MEDSUPPLY Qty: 1 0RF Rx Instructions: As directed alendronate 70 mg tablet PO .weekly 0RF mometasone 0.1 % solution 1 applic TOPICAL DAILY Qty: 60 3RF Rx Instructions: Apply 5 to 10 drops to affected area on scalp daily as needed ketoconazole 2 % shampoo 1 applic TOPICAL .2 x weekly Qty: 120 3RF Rx Instructions: Lather into scalp 2 times weekly. Allow to sit on scalp for 5 minutes before rinsing. gabapentin 300 mg capsule 300 mg PO TID 0RF azelastine 137 mcg (0.1 %) aerosol,spray 2 spray intranasal BID 0RF Rx Instructions: administer into each nostril albuterol sulfate 2.5 mg/0.5 mL solution for nebulization 5 mg inhalation Q6H PRN (Reason: shortness of breath or wheezing) Qty: 180 3RF tramadol 50 mg tablet 50 mg PO BID PRN0RF albuterol sulfate [ProAir HFA] 90 mcg/actuation HFA aerosol inhaler 2 puff INHALATION Q6H PRN0RF dextran 70-hypromellose Dropperette 1 drop ophthalmic (eye) DAILY PRN0RF metoprolol succinate 25 mg capsule,sprinkle,ER 24hr 25 mg PO DAILY 0RF tiotropium bromide 2.5 mcg/actuation mist 2 inh INHALATION QAM 0RF (DME) Diabetic shoes with inserts Qty: 1 0RF Rx Instructions: As directed montelukast 10 mg tablet 10 mg PO DAILY 0RF trazodone 100 mg tablet 100 mg PO .hs 0RF apixaban 5 mg tablet 5 mg PO BID 0RF rosuvastatin 40 mg tablet 40 mg PO DAILY 0RF ketoconazole 2 % shampoo 1 applic topical .2x weekly Qty: 120 6RF Rx Instructions: Lather into scalp 2-3 times weekly. Allow to sit on scalp for 5 minutes before rinsing. mometasone 0.1 % solution 1 applic topical DAILY Qty: 60 3RF Rx Instructions: Apply a few drops to scalp daily as needed for itch ipratropium-albuterol 0.5 mg-3 mg(2.5 mg base)/3 mL solution for nebulization 3 ml inhalation Q8H PRN (Reason: shortness of breath or wheezing) Qty: 180 3RF losartan 25 mg tablet 25 mg PO BID Qty: 180 3RF multivitamin Tablet 1 tab PO DAILY 0RF mecobalamin (vitamin B12) 1,000 mcg tablet,chewable 1,000 mcg PO DAILY 0RF Ultra CoQ10 75 mg capsule 75 mg PO DAILY 0RF ascorbate calcium (vitamin C) 500 mg tablet 500 mg PO DAILY 0RF aspirin 81 mg tablet,delayed release (DR/EC) 81 mg PO DAILY 0RF Xeljanz 5 mg tablet 5 mg PO BID Qty: 60 3RF clobetasol 0.05 % cream 1 applic topical BID Qty: 30 2RF fluocinonide 0.05 % ointment 1 applic TOPICAL BID Qty: 60 4RF Rx Instructions: Apply twice daily for no more than 2 weeks/month to affected areas on legs and flanks alternating with triamcinolone insulin detemir U-100 100 unit/mL (3 mL) insulin pen 50 unit SUBCUT DAILY Qty: 45 3RF Rx Instructions: Inject 50 units subcut daily. Discharge Orders: Discharge ED (Routine); Ordered 12/22/21 Ordered By: Fabiola Horn Referrals: Ligia Parker MD [Primary Care Provider] - Coding Level of Care Code ED Multifocal Lens Assembler for Chg Ariana
[2021-12-22] MEDS: dexamethasone 10 mg/mL INJ 8 MG IM (13:22)
[2021-12-22] MEDS: ketorolac 60 mg/2 mL INJ 30 MG IM (13:23)
[2021-12-22] MEDS: orphenadrine 30 mg/mL Inj 2 mL 60 MG IM (13:25)
== END 2021-12-22 14:56 | disposition home or self-care (01) ==
PROVIDERS: Emergency Provider Physician Assistant; PCP Family Medicine
DX: M54.50 Low back pain, unspecified (principal)
CPT/HCPCS: 96372; 99283; J1100; J1885; J2360

== ENCOUNTER → 2022-01-12 10:11 | Outpatient (BNVA) | payer OTHER, SELFPAY | PROVIDERS: PCP Family Medicine; Visit Provider Internal Medicine Rheumatology | DX: M05.79 Rheumatoid arthritis with rheumatoid factor of multiple sites without organ or systems involvement (principal); L40.0 Psoriasis vulgaris; Z79.899 Other long term (current) drug therapy; E13.65 Other specified diabetes mellitus with hyperglycemia; Z79.4 Long term (current) use of insulin; Z71.89 Other specified counseling | CPT/HCPCS: 36415; 82306; 82310; 83735; 84100; 85025; 99214 ==

== ENCOUNTER → 2022-02-08 08:54 | Outpatient (BNVA) | payer OTHER, MEDICARE, SELFPAY | PROVIDERS: PCP Family Medicine; Visit Provider Otolaryngology | DX: J31.0 Chronic rhinitis (principal); Z87.891 Personal history of nicotine dependence | CPT/HCPCS: 99203 ==

== ENCOUNTER 2022-02-12 11:56 | Outpatient (CLI) | payer OTHER, SELFPAY ==
--- NOTE | 2022-02-12 12:45 | USCV_ITS ---
Pasha Cobb Age: 77 Gender: M : 1945 Exam Date: 02/12/2022 12:37 Ordering Phys: Markus Bearden M.D ([email or web address]) Technologist: [place] [facility] [place]: [place] pain BP: 154 / 82 HR: 87 Rhythm: Sinus Technical Quality: Adequate MEASUREMENTS (Male / Female) Normal Values 2D ECHO LV Diastolic Diameter PLAX 3.7 cm 4.2 - 5.9 / 3.9 - 5.3 cm LV Systolic Diameter PLAX 2.6 cm IVS Diastolic Thickness 1.2 cm 0.6 - 1.0 / 0.6 - 0.9 cm IVS Systolic Thickness 1.5 cm LVPW Diastolic Thickness 1.1 cm 0.6 - 1.0 / 0.6 - 0.9 cm LVPW Systolic Thickness 1.2 cm LVOT Diameter 2.1 cm LV Ejection Fraction 2D Teich 58.5 % LV Ejection Fraction MOD 2C 74.5 % LV Ejection Fraction 2C AL 74.0 % LA Diameter 3.6 cm IVC Diameter 1.7 cm M-MODE RV Diastolic Diameter MM 1.7 cm Aortic Annulus Diameter 4.3 cm LA Ao Ratio MM 0.9 MV E Point Septal Separation 0.9 cm DOPPLER AV Peak Velocity 105.0 cm/s LVOT Peak Velocity 84.0 cm/s AV Area Cont Eq vti 2.8 cm squared AV Area Cont Eq pk 2.7 cm squared MV Area PHT 5.0 cm squared Mitral E to A Ratio 0.9 MV E' Velocity 36.5 cm/s Mitral E to MV E' Ratio 9.4 Mitral E to LV E' Lateral Ratio 8.6 Mitral E to LV E' Septal Ratio 10.5 TR Peak Velocity 131.7 cm/s TR Peak Gradient 6.9 mmHg TV Peak E Velocity 66.0 cm/s Right Atrial Pressure 3.0 mmHg Pulmonary Artery Systolic Pressu 9.9 mmHg PV Peak Velocity 111.0 cm/s FINDINGS Left Ventricle Left ventricle is normal in size. LV systolic function is normal with EF of 50 to 55%. No regional wall motion abnormalities are seen. Grade 1 diastolic dysfunction Right Ventricle Normal in size and function Right Atrium Normal in size Left Atrium Normal in size Mitral Valve Grossly normal Aortic Valve Grossly normal. No significant stenosis Tricuspid Valve Mild tricuspid regurgitation. PA systolic pressure is normal Pulmonic Valve Not well-visualized Pericardium Normal Aorta Normal in size IVC CONCLUSIONS Technically limited quality echocardiogram because of poor ultrasonic windows LV systolic function is normal with EF 50 to 55%. Grade 1 diastolic dysfunction. Mild tricuspid regurgitation. No comparison studies are available Markus Bearden MD (Electronically Signed) Final Date: 25 February 2022 18:24 S
== END 2022-02-12 11:57 | disposition home or self-care (01) ==
LOC: RAD 11:56
PROVIDERS: PCP Family Medicine; Visit Provider Internal Medicine
DX: I07.1 Rheumatic tricuspid insufficiency (principal); R07.9 Chest pain, unspecified
CPT/HCPCS: 93306

== ENCOUNTER → 2022-03-23 07:58 | Outpatient (BNVA) | payer OTHER, SELFPAY | PROVIDERS: PCP Family Medicine; Visit Provider Internal Medicine | DX: M81.0 Age-related osteoporosis without current pathological fracture (principal); E13.65 Other specified diabetes mellitus with hyperglycemia; E78.2 Mixed hyperlipidemia; Z79.4 Long term (current) use of insulin | CPT/HCPCS: 99214 ==

== ENCOUNTER → 2022-04-21 09:42 | Outpatient (BNVA) | payer OTHER, SELFPAY | PROVIDERS: PCP Family Medicine; Visit Provider Internal Medicine Rheumatology | DX: M05.79 Rheumatoid arthritis with rheumatoid factor of multiple sites without organ or systems involvement (principal); L40.0 Psoriasis vulgaris; Z79.899 Other long term (current) drug therapy; Z71.89 Other specified counseling | CPT/HCPCS: 99214 ==

== ENCOUNTER 2022-04-28 12:33 | Outpatient (CLI) | payer OTHER, MEDICARE, SELFPAY ==
--- NOTE | 2022-04-28 13:30 | XR_ITS ---
WS: [id number] DEXA (DUAL ENERGY X-RAY ABSORPTIOMETRY) Bone mineral density was performed using a iOpener machine. HISTORY: Checking for bone density changes. COMPARISON: None available. Lumbar spine BMD (L1-L4): 1.421 T score: 1.5 Z score: 1.4 Total hip BMD: Left: 0.872 g/cm2. T score: -1.6 Z score: -1.2 Right: 0.966 g/cm2. T score: -0.9 Z score: -0.5 10 year probability of a major osteoporotic fracture is 6.2%. XR/XR DEXA axial skeleton* [id number] IMPRESSION: OSTEOPENIA based upon the WHO classification for females.
== END 2022-04-28 12:34 | disposition home or self-care (01) ==
LOC: RAD 12:34
PROVIDERS: PCP Family Medicine; Visit Provider Internal Medicine
DX: E13.65 Other specified diabetes mellitus with hyperglycemia (principal); E78.2 Mixed hyperlipidemia; M81.0 Age-related osteoporosis without current pathological fracture; M85.80 Other specified disorders of bone density and structure, unspecified site
CPT/HCPCS: 77080

== ENCOUNTER 2022-05-20 08:35 | Outpatient (CLI) | payer OTHER, MEDICARE, SELFPAY ==
--- NOTE | 2022-05-20 | USCV_ITS ---
Pasha Cobb Age: 77 Gender: M : 1945 Exam Date: 05/20/2022 09:59 Ordering Phys: Ligia Parker MD Technologist: Jose Alejandra [place] [facility] [place]: [place] HISTORY: Diameter (cm) AP x Transverse x Length Velocity (cm/s) Waveform Prox Aorta: 2.21 x 2.07 x 91.50 Mid Aorta: 2.51 x 2.79 x 85.90 Distal Aorta: 1.89 x 2.21 x 81.00 Right Iliac Prox: 1.13 x 1.78 x 109.10 Left Iliac Prox: 1.09 x 1.65 x 140.70 Stent Prox Landing x x Aneurysmal Sac Max x x Lt Lat Sac Dim Rt Lat Sac Dim Stent Dist Landing x x Right Iliac Stent x x Left Iliac Stent x x Right Renal Art Left Renal Art FINDINGS: Comparison: none available. No evidence of abdominal aortic or bilateral iliac aneurysm. Minimal ectatic abdominal aorta with evidence of atherosclerotic plaque noted. CONCLUSIONS No evidence of abdominal aortic or bilateral iliac aneurysm. Dr. Ana Christensen DO (Electronically Signed) Final Date: 20 May 2022 11:07 S
--- NOTE | 2022-05-20 09:07 | USCV_ITS ---
RezaPasha Age: 77 Gender: M : 1945 Exam Date: 05/20/2022 09:43 Ordering Phys: Ligia Parker MD Technologist: Jose Alejandra [place] [facility] [place]: CAROTID BRUIT Risk Factors: Previous Vascular Surgery: Right Brachial BP: / Left Brachial BP: / Right Left Velocity (cm/s) Spectral Plaque Velocity (cm/s) Spectral Plaque Syst/Diast Broadening Syst/Diast Broadening 79.50/ 11.10 Prox CCA 114.80/ 21.00 108.10/15.40 Mid CCA 112.10/ 19.30 82.70/ 9.90 Distal CCA 63.10 / 12.30 76.00/ 21.40 Prox ICA 60.40 / 17.00 126.20/31.60 Mid ICA 81.50 / 20.40 63.70/ 16.30 Distal ICA 85.50 / 17.00 79.50 ECA 71.80 1.17 ICA/CCA 0.73 Antegrade Vertebral Antegrade 111.4/ 22.10 cm/s 93.00/ 18.80 cm/s 0 Tri Subclavian Tri 125.7 91.90 0 FINDINGS Comparison: none available. No significant elevation of systolic or diastolic velocities. Waveforms are normal. Minimal atherosclerosis. CONCLUSIONS Bilateral ICA stenosis less than 50%. Minimal carotid atherosclerosis. Dr. Ana Christensen DO (Electronically Signed) Final Date: 20 May 2022 11:09 S
== END 2022-05-20 08:36 | disposition home or self-care (01) ==
LOC: RAD 08:39
PROVIDERS: PCP Family Medicine; Visit Provider Family Medicine
DX: R09.89 Other specified symptoms and signs involving the circulatory and respiratory systems; I65.23 Occlusion and stenosis of bilateral carotid arteries; Z13.6 Encounter for screening for cardiovascular disorders
CPT/HCPCS: 76706; 93880

== ENCOUNTER → 2022-06-10 14:39 | Outpatient (BNVA) | payer OTHER, MEDICARE, SELFPAY | PROVIDERS: PCP Family Medicine; Visit Provider Internal Medicine | DX: I48.91 Unspecified atrial fibrillation (principal); E78.2 Mixed hyperlipidemia; R06.00 Dyspnea, unspecified; E11.9 Type 2 diabetes mellitus without complications; Z79.4 Long term (current) use of insulin | CPT/HCPCS: 99214 ==

== ENCOUNTER → 2022-06-23 08:33 | Outpatient (BNVA) | payer OTHER, SELFPAY | PROVIDERS: PCP Family Medicine; Visit Provider Internal Medicine | DX: E13.65 Other specified diabetes mellitus with hyperglycemia (principal); E78.2 Mixed hyperlipidemia; M81.0 Age-related osteoporosis without current pathological fracture; Z79.899 Other long term (current) drug therapy; Z79.4 Long term (current) use of insulin | CPT/HCPCS: 36415; 80053; 80061; 82044; 83036; 99214 ==

== ENCOUNTER → 2022-07-07 10:32 | Outpatient (BNVA) | payer OTHER, SELFPAY | PROVIDERS: PCP Family Medicine; Visit Provider Internal Medicine | DX: E13.65 Other specified diabetes mellitus with hyperglycemia (principal); E78.2 Mixed hyperlipidemia; M81.0 Age-related osteoporosis without current pathological fracture; Z79.899 Other long term (current) drug therapy; Z79.4 Long term (current) use of insulin | CPT/HCPCS: 99214 ==

== ENCOUNTER 2022-10-08 09:59 | Outpatient (CLI) | payer OTHER, SELFPAY ==
[2022-10-08 10:45] LABS: Alanine Aminotransferase 39 U/L (0-41); Albumin Level 4.1 g/dL (3.5-5.2); Alkaline Phosphatase 69 U/L (40-130); Anion Gap 12.2 (5-19); Aspartate Amino Transferase 32 U/L (0-40); Blood Urea Nitrogen 17 mg/dL (8-23); Calcium 8.8 mg/dL (8.5-10.5); Carbon Dioxide 31 mmol/L (22-29); Chloride 103 mmol/L (98-107); Chol HDL Ratio 3.19 mg/dL (1.0-5.00); Cholesterol 118 mg/dL (0-200); Globulin 2.7 g/dL (1.3-4.6); Glucose 261 mg/dL (65-115); HDL Cholesterol 37 mg/dL (60-100); LDL Cholesterol Calculated 48 mg/dL (50-129); Osmolality Calculated 305 mOsm/kg (285-295); Potassium 4.2 mmol/L (3.5-5.1); Sodium 142 mmol/L (136-145); Total Bilirubin 0.6 mg/dL (0.15-1.2); Total Protein 6.8 g/dL (6.6-8.7); Triglycerides 165 mg/dL (0-150)
[2022-10-08 10:54] LABS: Estmated Average Glucose 212
== END 2022-10-08 10:00 | disposition home or self-care (01) ==
LOC: LAB 10:04
PROVIDERS: PCP Nurse Practitioner; Visit Provider Internal Medicine
DX: E13.65 Other specified diabetes mellitus with hyperglycemia (principal); E78.2 Mixed hyperlipidemia; Z79.899 Other long term (current) drug therapy; Z79.891 Long term (current) use of opiate analgesic
CPT/HCPCS: 36415; 80053; 80061; 83036

== ENCOUNTER → 2022-11-15 10:38 | Outpatient (BNVA) | payer OTHER, SELFPAY | PROVIDERS: PCP Nurse Practitioner; Visit Provider Internal Medicine | DX: E13.65 Other specified diabetes mellitus with hyperglycemia (principal); M81.0 Age-related osteoporosis without current pathological fracture; E78.2 Mixed hyperlipidemia; Z79.899 Other long term (current) drug therapy; Z79.4 Long term (current) use of insulin | CPT/HCPCS: 99214 ==

== ENCOUNTER 2022-11-22 08:49 | Outpatient (CLI) | payer OTHER, SELFPAY ==
--- NOTE | 2022-11-22 09:07 | USCV_ITS ---
Pasha Cobb Age: 77 Gender: M : 1945 Exam Date: 11/22/2022 09:42 Ordering Phys: Sommer Klein Technologist: VIOLETA Exam Location: [facility] – [place] Indication: AAA Screening HISTORY: Diameter (cm) AP x Transverse x Length Velocity (cm/s) Waveform Prox Aorta: 1.60 x 1.99 x 81.20 Triphasic Mid Aorta: 2.15 x 1.97 x 62.10 Triphasic Distal Aorta: 1.71 x 2.03 x 49.50 Triphasic Right Iliac Prox: 0.90 x 0.95 x 94.50 Triphasic Left Iliac Prox: 0.97 x 1.04 x 84.30 Triphasic Stent Prox Landing x x Aneurysmal Sac Max x x Lt Lat Sac Dim Rt Lat Sac Dim Stent Dist Landing x x Right Iliac Stent x x Left Iliac Stent x x Right Renal Art Left Renal Art FINDINGS: Comparison:. 05/20/22 A complete assessment of the abdominal aorta was not possible. Limited by body habitus. Ectatic abdominal aorta with evidence of atherosclerotic plaque noted. Atherosclerotic plaque is noted in the abdominal aorta. No evidence of abdominal aortic or bilateral iliac aneurysm. CONCLUSIONS No evidence of abdominal aortic aneurysm. Ectatic abdominal aorta with evidence of atherosclerotic plaque noted. Dr. Ana Christensen DO (Electronically Signed) Final Date: 22 Nov 2022 12:39 S
--- NOTE | 2022-11-22 09:07 | US_ITS ---
WS: [id number] RIGHT UPPER QUADRANT ULTRASOUND HISTORY: ELEVATED LIVER ENZYMES COMPARISON: None available. Liver: 16.8 cm in length. Mildly enlarged liver with coarse echotexture. Surface of the liver is slig htly nodular and irregular. The entire liver cannot be well visualized due to attenuation. No mass or bile duct dilatation. Portal Vein: Normal hepatopetal flow with monophasic waveform. Gallbladder: Status post cholecystectomy. CBD: 0.8 cm Pancreas: Limited visualization of the pancreas. No abnormality identified. Right kidney: 9.8 cm in length. Normal size and echogenicity. No hydronephrosis or mass. Aorta and IVC: Unremarkable abdominal aorta and IVC. No ascites. US/US abdomen limited [id number] IMPRESSION: 1. Status post cholecystectomy. 2. Markedly echogenic liver with nodular surface contour suggestive of cirrhos is. There is also hepatic steatosis. No mass identified but the entire liver is not well visualized.
== END 2022-11-22 08:50 | disposition home or self-care (01) ==
PROVIDERS: PCP Nurse Practitioner; Visit Provider Nurse Practitioner
DX: R74.8 Abnormal levels of other serum enzymes (principal); K76.0 Fatty (change of) liver, not elsewhere classified; Z13.6 Encounter for screening for cardiovascular disorders; I77.811 Abdominal aortic ectasia
CPT/HCPCS: 76705; 76706

== ENCOUNTER → 2022-12-08 14:00 | Outpatient (BNVA) | payer OTHER, SELFPAY | PROVIDERS: PCP Nurse Practitioner; Visit Provider Internal Medicine | DX: I48.91 Unspecified atrial fibrillation (principal); E78.2 Mixed hyperlipidemia; R06.00 Dyspnea, unspecified; E11.9 Type 2 diabetes mellitus without complications; Z79.01 Long term (current) use of anticoagulants; Z79.82 Long term (current) use of aspirin; Z79.4 Long term (current) use of insulin | CPT/HCPCS: 99214 ==

== ENCOUNTER 2022-12-21 10:20 | Outpatient (CLI) | payer OTHER, SELFPAY ==
[2022-12-21 11:23] LABS: Basophils # 0.1 10^3/uL (0.0-0.1); Basophils % 0.7 %; Eosinophils # 0.3 10^3/uL (0.0-0.8); Eosinophils % 3.9 %; Hematocrit 42.3 % (42.0-52.0); Hemoglobin 14.2 g/dL (11.7-16.6); Lymphocytes # 1.6 10^3/uL (0.8-4.8); Lymphocytes % 21.8 %; Mean Corpuscular HGB Conc 33.6 g/dL (30.0-36.0); Mean Corpuscular Hemoglobin 32.1 pg (28.0-34.0); Mean Corpuscular Volume 95.5 fl (80-94); Mean Platelet Volume 10.6 fL (7.4-10.4); Monocytes # 0.6 10^3/uL (0.2-0.9); Monocytes % 8.2 %; Neutrophils # 4.82 10^3/uL (1.8-7.7); Neutrophils % 64.9 %; Nucleated Red Blood Cells % 0 %; Platelet Count 147 10^3/cmm (130-400); Red Blood Count 4.43 10^6/uL (4.1-5.3); White Blood Count 7.4 10^3/uL (4.0-10.0)
[2022-12-21 11:46] LABS: Alanine Aminotransferase 33 U/L (0-41); Albumin Level 4.2 g/dL (3.5-5.2); Alkaline Phosphatase 99 U/L (40-130); Anion Gap 12.2 (5-19); Aspartate Amino Transferase 34 U/L (0-40); Blood Urea Nitrogen 14 mg/dL (8-23); Calcium 8.6 mg/dL (8.5-10.5); Carbon Dioxide 28 mmol/L (22-29); Chloride 99 mmol/L (98-107); Chol HDL Ratio 5.76 mg/dL (1.0-5.00); Cholesterol 190 mg/dL (0-200); Globulin 3.1 g/dL (1.3-4.6); Glucose 170 mg/dL (65-115); HDL Cholesterol 33 mg/dL (60-100); LDL Cholesterol Calculated 111 mg/dL (50-129); LDL HDL Ratio 3.36 RATIO (0.00-3.22); Osmolality Calculated 284 mOsm/kg (285-295); Potassium 4.2 mmol/L (3.5-5.1); Sodium 135 mmol/L (136-145); Total Bilirubin 0.8 mg/dL (0.15-1.2); Total Protein 7.3 g/dL (6.6-8.7); Triglycerides 230 mg/dL (0-150)
[2022-12-21 14:56] LABS: Hepatitis B Core AB, Total Non-Reactive (Nonreactive); Hepatitis B Surface AB 3.5 (11.5-1000); Hepatitis B Surface Antigen Non-Reactive (Nonreactive)
[2022-12-21 16:24] LABS: Hepatitis C Virus Antibody Non-Reactive (Nonreactive)
[2022-12-23 17:19] LABS: Quantiferon Mitogen 9.72 IU/mL; Quantiferon Nil 0.03 IU/mL; Quantiferon Plus TB2 0.01 IU/mL; Quantiferon TB Gold NEGATIVE (NEGATIVE)
== END 2022-12-21 10:21 | disposition home or self-care (01) ==
LOC: LAB 10:25
PROVIDERS: PCP Nurse Practitioner; Visit Provider Nurse Practitioner
DX: L40.59 Other psoriatic arthropathy (principal); Z79.899 Other long term (current) drug therapy; S30.0XXA Contusion of lower back and pelvis, initial encounter; W19.XXXA Unspecified fall, initial encounter; L40.0 Psoriasis vulgaris
CPT/HCPCS: 36415; 80048; 80061; 80076; 85025; 86480; 86704; 86706; 86803; 87340; 99214

== ENCOUNTER → 2023-01-19 08:26 | Outpatient (BNVA) | payer OTHER, SELFPAY | PROVIDERS: PCP Nurse Practitioner; Visit Provider Podiatrist Foot & Ankle Surgery | DX: S92.414A Nondisplaced fracture of proximal phalanx of right great toe, initial encounter for closed fracture (principal); X58.XXXA Exposure to other specified factors, initial encounter; E11.9 Type 2 diabetes mellitus without complications; Z79.4 Long term (current) use of insulin | CPT/HCPCS: 73630 ==

== ENCOUNTER 2023-01-19 12:06 | Outpatient (CLI) | payer OTHER, SELFPAY | END 2023-01-19 12:07 | disposition home or self-care (01) | LOC: SPT 12:07 | PROVIDERS: PCP Nurse Practitioner; Visit Provider Podiatrist Foot & Ankle Surgery | DX: S92.411A Displaced fracture of proximal phalanx of right great toe, initial encounter for closed fracture (principal); X58.XXXA Exposure to other specified factors, initial encounter; E11.9 Type 2 diabetes mellitus without complications; Z79.4 Long term (current) use of insulin | CPT/HCPCS: 97760; 99214; L3031 ==

== ENCOUNTER → 2023-02-10 10:58 | Outpatient (BNVA) | payer OTHER, SELFPAY | PROVIDERS: PCP Nurse Practitioner; Visit Provider Podiatrist Foot & Ankle Surgery | DX: S92.411A Displaced fracture of proximal phalanx of right great toe, initial encounter for closed fracture (principal); X58.XXXA Exposure to other specified factors, initial encounter | CPT/HCPCS: 73630; 99213 ==

== ENCOUNTER → 2023-02-16 12:57 | Outpatient (BNVA) | payer OTHER, SELFPAY | PROVIDERS: PCP Nurse Practitioner; Visit Provider Internal Medicine | DX: E11.9 Type 2 diabetes mellitus without complications (principal); M81.0 Age-related osteoporosis without current pathological fracture; E78.2 Mixed hyperlipidemia; Z79.4 Long term (current) use of insulin | CPT/HCPCS: 99214 ==

== ENCOUNTER 2023-03-22 09:44 | Outpatient (CLI) | payer OTHER, SELFPAY ==
[2023-03-22 10:24] LABS: Estmated Average Glucose 220; Hemoglobin A1C 9.3 % (4.0-6.0)
[2023-03-22 10:29] LABS: Alanine Aminotransferase 30 U/L (0-41); Alkaline Phosphatase 106 U/L (40-130); Anion Gap 13.2 (5-19); Aspartate Amino Transferase 28 U/L (0-40); Blood Urea Nitrogen 18 mg/dL (8-23); Calcium 8.9 mg/dL (8.5-10.5); Carbon Dioxide 28 mmol/L (22-29); Chloride 103 mmol/L (98-107); Cholesterol 186 mg/dL (0-200); Globulin 3.2 g/dL (1.3-4.6); Glucose 283 mg/dL (65-115); HDL Cholesterol 30 mg/dL (60-100); LDL Cholesterol Calculated 94 mg/dL (50-129); LDL HDL Ratio 3.13 RATIO (0.00-3.22); Osmolality Calculated 302 mOsm/kg (285-295); Potassium 4.2 mmol/L (3.5-5.1); Sodium 140 mmol/L (136-145); Total Bilirubin 0.5 mg/dL (0.15-1.2); Total Protein 7.2 g/dL (6.6-8.7); Triglycerides 310 mg/dL (0-150)
[2023-03-22 10:35] LABS: Creatinine Urine, Random 141 mg/dL (39-259); Microalbum Creatinine Ratio Ur 78 mg/dL (0-20); Microalbumin Random Urine 11 ug/dL (0-20)
== END 2023-03-22 09:45 | disposition home or self-care (01) ==
LOC: LAB 09:47
PROVIDERS: PCP Nurse Practitioner; Visit Provider Internal Medicine
DX: E13.65 Other specified diabetes mellitus with hyperglycemia; E78.2 Mixed hyperlipidemia; M81.0 Age-related osteoporosis without current pathological fracture
CPT/HCPCS: 36415; 80053; 80061; 82044; 83036

== ENCOUNTER → 2023-03-24 07:35 | Outpatient (BNVA) | payer OTHER, SELFPAY | PROVIDERS: PCP Nurse Practitioner; Visit Provider Internal Medicine | DX: M81.0 Age-related osteoporosis without current pathological fracture; E78.2 Mixed hyperlipidemia; K76.0 Fatty (change of) liver, not elsewhere classified; E11.65 Type 2 diabetes mellitus with hyperglycemia; Z79.4 Long term (current) use of insulin | CPT/HCPCS: 99214 ==

== ENCOUNTER → 2023-04-20 09:21 | Outpatient (BNVA) | payer OTHER, SELFPAY | PROVIDERS: PCP Nurse Practitioner; Visit Provider Podiatrist Foot & Ankle Surgery | DX: S92.414D Nondisplaced fracture of proximal phalanx of right great toe, subsequent encounter for fracture with routine healing; X58.XXXD Exposure to other specified factors, subsequent encounter | CPT/HCPCS: 73630; 99213 ==

== ENCOUNTER 2023-05-04 08:26 | Emergency (ER) | payer OTHER, SELFPAY ==
[2023-05-04 08:34] VITALS: BP 172/118; PULSE 88; RESP 18; TEMP 36.4; O2SAT 97; BMI 36.0
--- NOTE | 2023-05-04 08:44 | ED_ITS ---
HPI - Extremity Problem General: Chief complaint: Extremity Problem,Nontraumatic Stated complaint: left leg pain Time Seen by Provider: 05/04/23 08:40 Source: patient Mode of arrival: ambulatory Limitations: no limitations History of Present Illness: 78-year-old male states been having left low back pain with radiation to his leg. He states he is working his barn 3 days ago since when the pain started in its worsened states it is a sharp shooting pain down his leg he denies any bowel or bladder incontinence denies difficulty walking rates his pain currently a 5 out of 10. Its worse with certain positions. Associated symptoms: Deny chest pain, fever(s) or rash Review of Systems Const: Denies: fever(s), chills, body aches or change in appetite ENMT: Denies: throat pain or dental pain Card: Denies: chest pain Resp: Denies: dyspnea GI: Denies: abdominal pain, nausea, vomiting or diarrhea Musc: Reports: back pain; Denies: neck pain Skin/Breast: Denies: rash Neuro: Denies: headache(s) PFSH ED PFSH: Medical History Acquired hammer toe Acute back pain with sciatica Acute carpal tunnel syndrome of left wrist Acute carpal tunnel syndrome of right wrist Acute joint pain Diabetes mellitus Encounter for long-term opiate analgesic use High risk medication use History of [place] spotted fever Hyperlipidemia Immunization counseling Other instability, left ankle Plaque psoriasis Post-traumatic arthritis of left ankle Psoriasis PVD (peripheral vascular disease) Seropositive rheumatoid arthritis of multiple sites Thoracic outlet syndrome Venous stasis Surgical History History of angioplasty History of cholecystectomy History of ear surgery right ear cyst removal Family History Other CAD (coronary artery disease) Cancer Diabetes Hyperlipidemia Hypertension Denies family history of Rheumatoid arthritis Lupus Social History Smoking and tobacco status: never smoked Quit status (tobacco): has quit using tobacco Year quit tobacco: 1989 Former quit date comment: 1 ppd x 30 years Second hand smoke exposure: No Alcohol intake: never Substance/Drug Use: never Physical Exam Const: COMMON NORMALS: no acute distress, patient oriented x3 and healthy appearing HENMT: COMMON NORMALS: normocephalic HEAD & SCALP: normocephalic Eye: COMMON NORMALS: conjunctivae normal CONJUNCTIVA: Yes conjunctivae normal Neck/C-Spine: COMMON NORMALS: full ROM and supple Chest: COMMONS NORMALS: normal inspection of the chest Resp: COMMON NORMALS: normal respiratory effort Cardio: COMMON NORMALS: regular rate, regular rhythm and No murmurs present ( Cardio) RATE: regular rate RHYTHM: regular rhythm Back/Pelvis: OTHER: Left lower back tenderness no saddle anesthesia strength 5 out of 5 to his leg Extremity: COMMON NORMALS: normal to inspection and full ROM Neuro: COMMON NORMALS: patient oriented x3, moves all extremities and no focal motor deficits Psych: COMMON NORMALS: mental status grossly normal, Normal thought process present and cooperative THOUGHT PROCESS: Normal thought process present Skin: COMMON NORMALS: no rashes or lesions noted and no wounds GENERAL SKIN EXAM: no rashes or lesions noted Course Vital Signs: Vital signs: Vital Signs Temperature 97.5 F L 05/04/23 08:34 Pulse Rate 88 05/04/23 08:34 Respiratory Rate 18 05/04/23 08:34 Blood Pressure 172/118 05/04/23 08:34 Pulse Oximetry 97 05/04/23 08:34 Oxygen Delivery Me thod Room Air 05/04/23 08:34 MDM - Extremity (Nontraumatic) Medical Decision Making Patient presents here with low back pain likely sciatica no signs of cord compression or epidural abscess we will start him on muscle relaxant along with anti-inflammatory he is to follow-up with his primary care doctor. Medical Records I reviewed the patient's medical records. No radiology studies performed this visit Discharge Plan Discharge Patient Disposition: Home Clinical Impression: Acute low back pain with sciatica Condition: Stable Prescriptions: New methocarbamol 750 mg tablet 750 mg PO Q6H PRN (Reason: spasms) Qty: 20 0RF Naprosyn 500 mg tablet 500 mg PO BID PRN (Reason: pain) Qty: 20 0RF No Action gabapentin 300 mg capsule 300 mg PO TID albuterol sulfate 2.5 mg/0.5 mL solution for nebulization 5 mg inhalation Q6H PRN (Reason: shortness of breath or wheezing) Qty: 180 3RF albuterol sulfate [ProAir HFA] 90 mcg/actuation HFA aerosol inhaler 2 puff INHALATION Q6H PRN dextran 70-hypromellose Dropperette 1 drop ophthalmic (eye) DAILY PRN metoprolol succinate 25 mg capsule,sprinkle,ER 24hr 25 mg PO DAILY tiotropium bromide 2.5 mcg/actuation mist 2 inh INHALATION QAM apixaban 5 mg tablet 5 mg PO BID mometasone 0.1 % solution 1 applic topical DAILY Qty: 60 3RF Rx Instructions: Apply a few drops to scalp daily as needed for itch ketoconazole 2 % shampoo 1 applic topical .2x weekly Qty: 120 6RF Rx Instructions: Lather into scalp 2-3 times weekly. Allow to sit on scalp for 5 minutes before rinsing. Skyrizi 150 mg/mL pen injector 150 mg SUBCUT ONCE Qty: 1 3RF Rx Instructions: Inject 1 pen under the skin on week 0 then on week 4 then every 12 weeks thereafter. (DME) Carbon fiber foot plate to right See Rx Instructions .Route .MEDSUPPLY Qty: 1 0RF Rx Instructions: As directed multivitamin Tablet 1 tab PO DAILY Ultra CoQ10 75 mg capsule 75 mg PO DAILY aspirin 81 mg tablet,delayed release (DR/EC) 81 mg PO DAILY cetirizine 10 mg tablet 10 mg PO DAILY PRN lidocaine 5 % cream 1 applic topical BID PRN alendronate 70 mg tablet PO sertraline 100 mg tablet 100 mg PO DAILY mirtazapine 30 mg tablet 30 mg PO DAILY cholecalciferol (vitamin D3) 50 mcg (2,000 unit) capsule 50 mcg PO DAILY omega 5-vng-hpu-fish oil [Fish Oil] 1,000 mg (120 mg-180 mg) capsule 1 cap PO BID hydroxyzine HCl 10 mg/5 mL (5 mL) solution 10 mg PO QID PRN tofacitinib 5 mg tablet 5 mg PO BID fluticasone furoate 50 mcg/actuation blister with device inhalation losartan 50 mg tablet 50 mg PO BID Qty: 180 3RF clobetasol 0.05 % ointment 1 applic topical BID 14 Days Qty: 60 1RF Rx Instructions: Use for no more than 2 weeks per month. Not for use on face/skin folds. ketoconazole 2 % cream 1 applic topical BID Qty: 30 6RF Rx Instructions: Apply to red scaly areas of the face 2 times daily insulin glargine 100 unit/mL (3 mL) insulin pen 70 unit SUBCUT DAILY Qty: 45 1RF Discharge Orders: Discharge ED (Routine); Ordered 05/04/23 Ordered By: Yanni White Referrals: Sommer Klein FNP [Primary Care Provider] - 1-3 days Discharge Diet: Advance as tolerated Discharge Activity: Resume usual activity Patient Instructions: Sciatica (ED), Piriformis Syndrome (ED), Lower Back Exercises (ED) Coding Level of Care Code ED Esthetician/Skin Therapist for [address]
[2023-05-04] MEDS: dexamethasone 10 mg/mL INJ IM (09:01)
[2023-05-04] MEDS: ketorolac 30 mg/mL INJ IM (09:01)
== END 2023-05-04 09:29 | disposition home or self-care (01) ==
PROVIDERS: Emergency Provider Emergency Medicine; PCP Nurse Practitioner
DX: M54.40 Lumbago with sciatica, unspecified side (principal); Z79.02 Long term (current) use of antithrombotics/antiplatelets; Z79.4 Long term (current) use of insulin; Z87.891 Personal history of nicotine dependence; E11.9 Type 2 diabetes mellitus without complications; E78.5 Hyperlipidemia, unspecified
CPT/HCPCS: 96372; 99284; J1100; J1885

== ENCOUNTER → 2023-05-19 07:47 | Outpatient (BNVA) | payer OTHER, SELFPAY | PROVIDERS: PCP Nurse Practitioner; Visit Provider Internal Medicine | DX: E11.9 Type 2 diabetes mellitus without complications (principal); M79.652 Pain in left thigh; R29.898 Other symptoms and signs involving the musculoskeletal system; M81.0 Age-related osteoporosis without current pathological fracture; E78.2 Mixed hyperlipidemia; M54.9 Dorsalgia, unspecified; Z79.4 Long term (current) use of insulin | CPT/HCPCS: 73552; 99215 ==

== ENCOUNTER 2023-05-23 13:35 | Outpatient (CLI) | payer OTHER, SELFPAY ==
--- NOTE | 2023-05-23 14:30 | MR_ITS ---
WS: [id number] MRI LUMBAR SPINE NONCONTRAST HISTORY: Pain down LEFT leg. Fell 3 months ago. COMPARISON: None available. TECHNIQUE: Sagittal and axial multisequence imaging is submitted. Very slight increase in the lumbar lordosis. L4 anterolisthesis by 4.3 mm. No fracture or marrow ellis a. Mild disc desiccation throughout the lumbar spine. Conus terminates normally at L1-2 disc level. L1-L2: Mild annular disc bulging. Bilateral foraminal disc protrusions, LEFT greater than RIGHT. Mode rate to severe LEFT and moderate RIGHT foraminal stenosis. There is mild subarticular recess disc enc roachment. Large LEFT subarticular recess disc protrusion. This disc protrusion extends posterior to the L2 vertebral body with significant significant mass effect upon the thecal sac. Favor this disc p rotrusion is most likely from the L1-2 disc. L2-L3: Diffuse annular disc bulging, ligamentum flavum and facet arthritis. Large LEFT foraminal disc protrusion completely effacing fat. Severe LEFT and moderate RIGHT foraminal stenosis. Mild central and bilateral subarticular recess stenosis. L3-L4: Mild annular disc bulging with ligamentum flavum and facet arthritis. Moderate bilateral mp inal stenosis with disc contacting the exiting L3 nerve roots. Mild central and subarticular recess s tenosis. L4-L5: Mild facet arthritis. Moderate bilateral foraminal stenosis and mild central stenosis. L5-S1: Shallow central disc protrusion. Bilateral facet joint arthritis. Paravertebral soft tissues are normal. IMPRESSION: 1. L1-2: Bilateral foraminal disc protrusions, LEFT greater than RIGHT. Moderate to severe LEFT and m oderate RIGHT foraminal stenosis. 2. Large LEFT subarticular recess disc protrusion extends posterior to the L2 vertebral body. This is probably an extruded disc fragment from the L1-2 disc causing significant mass effect upon the LEFT lateral thecal sac and the nerve roots. 3. L2-3: Annular disc bulging with a large LEFT foraminal disc protrusion. Severe LEFT and moderate R IGHT foraminal stenosis. Mild central and bilateral subarticular recess stenosis. 4. L3-4: Moderate bilateral foraminal stenosis with disc contacting the exiting L3 nerve roots. Mild central and subarticular recess stenosis. 5. L4-5: Mild central and moderate bilateral foraminal stenosis. 6. L4 anterolisthesis by 4.3 mm.
== END 2023-05-23 13:36 | disposition home or self-care (01) ==
LOC: RAD 13:35
PROVIDERS: PCP Nurse Practitioner; Visit Provider Internal Medicine
DX: M81.0 Age-related osteoporosis without current pathological fracture (principal); M79.659 Pain in unspecified thigh; M54.9 Dorsalgia, unspecified; R29.898 Other symptoms and signs involving the musculoskeletal system
CPT/HCPCS: 72148

== ENCOUNTER → 2023-05-24 16:02 | Outpatient (BNVA) | payer OTHER, SELFPAY | PROVIDERS: PCP Nurse Practitioner; Visit Provider Physician Assistant | DX: M51.26 Other intervertebral disc displacement, lumbar region; M54.16 Radiculopathy, lumbar region; E11.9 Type 2 diabetes mellitus without complications; Z79.4 Long term (current) use of insulin | CPT/HCPCS: 72110; 99203 ==

== ENCOUNTER → 2023-05-26 14:28 | Outpatient (BNVA) | payer OTHER, SELFPAY | PROVIDERS: PCP Nurse Practitioner; Visit Provider Dermatology | DX: L40.0 Psoriasis vulgaris (principal); L24.9 Irritant contact dermatitis, unspecified cause; L82.1 Other seborrheic keratosis; I87.2 Venous insufficiency (chronic) (peripheral); D18.01 Hemangioma of skin and subcutaneous tissue | CPT/HCPCS: 99214 ==

== ENCOUNTER 2023-05-30 09:57 | Outpatient (CLI) | payer OTHER, SELFPAY ==
[2023-05-30 10:43] LABS: Alanine Aminotransferase 39 U/L (0-41); Albumin Level 4.2 g/dL (3.5-5.2); Alkaline Phosphatase 106 U/L (40-130); Anion Gap 12.5 (5-19); Aspartate Amino Transferase 29 U/L (0-40); Blood Urea Nitrogen 15 mg/dL (8-23); Calcium 9.2 mg/dL (8.5-10.5); Carbon Dioxide 29 mmol/L (22-29); Chloride 99 mmol/L (98-107); Chol HDL Ratio 5.34 mg/dL (1.0-5.00); Cholesterol 171 mg/dL (0-200); Glucose 315 mg/dL (65-115); HDL Cholesterol 32 mg/dL (60-100); LDL Cholesterol Calculated 79 mg/dL (50-129); LDL HDL Ratio 2.47 RATIO (0.00-3.22); Osmolality Calculated 295 mOsm/kg (285-295); Potassium 4.5 mmol/L (3.5-5.1); Sodium 136 mmol/L (136-145); Total Bilirubin 0.5 mg/dL (0.15-1.2); Total Protein 7.2 g/dL (6.6-8.7); Triglycerides 301 mg/dL (0-150)
[2023-05-30 10:43] LABS: Creatinine Urine, Random 75 mg/dL (39-259); Microalbumin Random Urine 5 ug/dL (0-20)
[2023-05-30 10:46] LABS: Microalbum Creatinine Ratio Ur 67 mg/dL (0-20)
[2023-05-30 10:59] LABS: Estmated Average Glucose 246; Hemoglobin A1C 10.2 % (4.0-6.0)
== END 2023-05-30 09:58 | disposition home or self-care (01) ==
PROVIDERS: PCP Nurse Practitioner; Visit Provider Internal Medicine
DX: E11.9 Type 2 diabetes mellitus without complications (principal)
CPT/HCPCS: 36415; 80053; 80061; 82044; 83036

== ENCOUNTER 2023-06-18 11:42 | Emergency (ER) | payer OTHER, SELFPAY ==
[2023-06-18 11:49] VITALS: BP 169/99; PULSE 77; RESP 18; TEMP 36.4; O2SAT 96; BMI 36.9
--- NOTE | 2023-06-18 11:58 | CTR_ITS ---
PROCEDURE INFORMATION: Exam: CT Abdomen And Pelvis With Contrast Exam date and time: 06/18/2023 12:43 PM Age: 78 years old Clinical indication: Abdominal pain; Localized; Left lower quadrant (llq); Prior surgery; Surgery date: 6+ months; Surgery type: Gb; Additional info: Llq pain TECHNIQUE: Imaging protocol: Computed tomography of the abdomen and pelvis with contrast. Radiation optimization: All CT scans at this facility use at least one of these dose optimization techniques: automated exposure control; mA and/or kV adjustment per patient size (includes targeted exams where dose is matched to clinical indication); or iterative reconstruction. Contrast material: OMNI 350; Contrast volume: 100 ml; Contrast route: INTRAVENOUS (IV); REPORTING DATA: Count of CT and Cardiac NM exams in prior 12 months: This patient has received 0 known CTs and 0 known cardiac nuclear medicine studies in the 12 months prior to the current study. COMPARISON: CR XR lumbar spine min 4V [id number] 05/24/2023 4:05 PM RADIATION DOSE METRICS: Total DLP (mGy-cm): 1117.43 FINDINGS: Lungs: Lung bases demonstrate mild scattered atelectasis. Liver: The liver is unremarkable. Gallbladder and bile ducts: Gallbladder is absent. No significant intrahepatic or extrahepatic biliary dilation. Pancreas: Severe fatty atrophy of the pancreas. Spleen: The spleen is unremarkable. Adrenal glands: The adrenal glands are unremarkable. Kidneys and ureters: Mild bilateral renal atrophy. No hydronephrosis or hydroureter. No evidence of renal stones. Stomach and bowel: A loop of jejunum, located in the left hemiabdomen, is fluid-filled, is nondilated, and demonstrates mild bowel wall thickening and mucosal enhancement. Nonobstructive bowel gas pattern. Appendix: The appendix is normal. Intraperitoneal space: No significant free fluid in the abdomen or pelvis. Vasculature: Mild scattered calcific disease of the aorta and its major branches. Lymph nodes: No suspicious lymphadenopathy. Urinary bladder: Part of the urinary bladder is located within the moderate-size right inguinal hernia. The urinary bladder is otherwise normal with regards to distention and bladder wall thickness. Reproductive: Prostate is mildly enlarged. Bones/joints: Multilevel spondylosis. No acute osseous findings. Soft tissues: Multiple small injection granulomas in the anterior suprapubic pannus. Small fat containing paraumbilical hernia. Moderate-size right inguinal hernia containing fat and a portion of the urinary bladder. CT/CT abdomen pelvis w con* [id number] IMPRESSION: 1. Findings indicative of [id number] nonspecific enteritis involving a loop of jejunum in the left hemiabdomen. 2. Moderate-size right inguinal hernia containing fat and a portion of the urinary bladder.
--- NOTE | 2023-06-18 11:58 | W.ED.ABDPA2 ---
HPI - Abdominal Pain General: Chief Complaint: Abdominal Pain Stated Complaint: Reported mid left abd pain Time Seen by Provider: 06/18/23 11:58 History of Present Illness: 78-year-old male presents the emergency department with complaints of left upper quadrant abdominal pain he states that it started 3 days ago and he feels like he feels some sort of mass that he can feel with his hand. He states he has a liver disease that also causes him to have excessive abdominal fluid. He states at present his abdominal pain is a 4 out of 10 and generally aching. He states he has a longstanding history of sciatica and over the previous 2 weeks he feels that his sciatica has been more out of control and is causing him difficulty with sleep. Review of Systems General: Reports: 10 or more systems reviewed and unremarkable except in HPI and below GI: Reports: abdominal pain Musc: Reports: back pain PFSH ED PFSH: Medical History Acquired hammer toe Acute back pain with sciatica Acute carpal tunnel syndrome of left wrist Acute carpal tunnel syndrome of right wrist Acute joint pain Diabetes mellitus Encounter for long-term opiate analgesic use High risk medication use History of [place] spotted fever Hyperlipidemia Immunization counseling Other instability, left ankle Plaque psoriasis Post-traumatic arthritis of left ankle Psoriasis PVD (peripheral vascular disease) Seropositive rheumatoid arthritis of multiple sites Thoracic outlet syndrome Venous stasis Surgical History History of angioplasty History of cholecystectomy History of ear surgery right ear cyst removal Family History Other CAD (coronary artery disease) Cancer Diabetes Hyperlipidemia Hypertension Denies family history of Rheumatoid arthritis Lupus Social History Smoking and tobacco/nicotine status: never used tobacco/nicotine Quit status (tobacco/nicotine): has quit using Year quit tobacco: 1989 Former quit date comment: 1 ppd x 30 years Second hand smoke exposure: No Alcohol intake: never Substance/Drug Use: never Physical Exam Narrative: EXAM NARRATIVE: Constitutional: the patient appears well nourished and with normal development. Vital signs reviewed as documented. HENMT: Normocephalic, atraumatic. Extermal ears with normal appearance without drainage. Nose without drainage, normal appearance. Mucus membranes moist. Neck is supple, No jugular venous distension, trachea is midline, no appreciable carotid bruits. No lymphadenopathy. No meningeal signs. Flexion, extension and lateral rotation is without pain. Eyes: Pupils are equal, round, reactive to light and accommodation. No scleral icterus. Extra-ocular movement are intact. Thorax is symmetrical and with equal rise and fall with respirations. Resp: Lungs are clear to auscultation. No wheezes, rales, crackles or ronchi at present. Cardio: Regular rate and rhythm. Positive S1, S2. No appreciable murmurs, rubs or gallops. GI: Abdominal exam reveals normal bowel sounds to all quadrants. No organomegaly. No obvious palpable masses noted. No hepatomegally appreciated. Soft, nontender to palpation. Mild abdominal ascites noted no obvious fluid wave Extremity: Extremities are non-edematous and both femoral and pedal pulses are 2+ and equal bilaterally. Moves all extremities well, sensation in all extremities. Neuro: Alert and oriented x4, person, place, time and situation. Cranial nerves II through XII are grossly intact, there is no focal neurological deficits that I can appreciate at present. Motor strength in the upper and lower extremities are equal and bilateral 5/5. Psych: Cooperative, calm, normal thought process, appropriate judgment. Skin: No lesions, rashes. No gross abnormalities noted. Back: Symmetrical, no obvious deformity, No CVA tenderness Course Vital Signs: Vital signs: Vital Signs Temperature 97.5 F L 06/18/23 11:49 Pulse Rate 77 06/18/23 11:49 Respiratory Rate 18 06/18/23 11:49 Blood Pressure 169/99 06/18/23 11:49 Pulse Oximetry 96 06/18/23 11:49 Oxygen Delivery Me thod Room Air 06/18/23 11:49 MDM - Abdominal Pain Medical Decision Making Physical exam completed and documented, I will obtain laboratory evaluation to include a CBC, CMP, lipase, urinalysis, and a CT scan of the patient's abdomen pelvis to evaluate for possible differential diagnosis of bowel obstruction, incarcerated hernia, abdominal wall strain, abdominal wall hematoma, constipation. I will provide the patient IV access and IV fluid as well as a CT scan abdomen pelvis with contrast for evaluation for possible colitis, acute appendicitis, diverticulitis. Medical Records I reviewed the patient's medical records. Lab Data I reviewed the patient's lab results. 06/18/23 12:10 06/18/23 12:10 Labs/Radiology: Radiology Impressions Abdomen/Pelvis CT 06/18/23 11:58 IMPRESSION: 1. Findings indicative of [id number] nonspecific enteritis involving a loop of jejunum in the left hemiabdomen. 2. Moderate-size right inguinal hernia containing fat and a portion of the urinary bladder. Laboratory Results WBC 7.95 10^3/uL (3.29-11.43) 06/18/23 12:10 RBC 4.31 10^6/uL (3.85-5.65) 06/18/23 12:10 Hgb 14.40 g/dL (11.27-16.99) 06/18/23 12:10 Hct 42.1 % (37-53) 06/18/23 12:10 MCV 97.7 fl (82-101) 06/18/23 12:10 MCH 33.4 pg (27-33) H 06/18/23 12:10 MCHC 34.2 g/dL (30-55) 06/18/23 12:10 RDW 12.5 % (12.1-15.1) 06/18/23 12:10 Plt Count 132 10^3/cmm (157-399) L 06/18/23 12:10 MPV 10.0 fL (7.4-10.4) 06/18/23 12:10 Neut % (Auto) 67.7 % 06/18/23 12:10 Lymph % (Auto) 21.0 % 06/18/23 12:10 [place] % (Auto) 6.9 % 06/18/23 12:10 Eos % (Auto) 3.5 % 06/18/23 12:10 Baso % (Auto) 0.4 % 06/18/23 12:10 Neut # (Auto) 5.38 10^3/uL (1.8-7.7) 06/18/23 12:10 Lymph # (Auto) 1.7 10^3/uL (0.8-4.8) 06/18/23 12:10 [place] # (Auto) 0.6 10^3/uL (0.2-0.9) 06/18/23 12:10 Eos # (Auto) 0.3 10^3/uL (0.0-0.8) 06/18/23 12:10 Baso # (Auto) 0.0 10^3/uL (0.0-0.1) 06/18/23 12:10 Nucleated RBC % (auto) 0 % 06/18/23 12:10 Nucleated RBCs # 0.0 /100WBC 06/18/23 12:10 Sodium 136 mmol/L (136-145) 06/18/23 12:10 Potassium 4.2 mmol/L (3.5-5.1) 06/18/23 12:10 Chloride 98 mmol/L (98-107) 06/18/23 12:10 Carbon Dioxide 30 mmol/L (22-29) H 06/18/23 12:10 Anion Gap 12.2 (5-19) 06/18/23 12:10 BUN 13 mg/dL (8-23) 06/18/23 12:10 Creatinine 1.0 mg/dL (0.7-1.2) 06/18/23 12:10 GFR Calculation Not Reportable 06/18/23 12:10 Glucose 276 mg/dL (65-115) H 06/18/23 12:10 Calculated Osmolality 292 mOsm/kg (285-295) 06/18/23 12:10 Calcium 9.1 mg/dL (8.5-10.5) 06/18/23 12:10 Total Bilirubin 0.7 mg/dL (0.15-1.2) 06/18/23 12:10 AST 25 U/L (0-40) 06/18/23 12:10 ALT 31 U/L (0-41) 06/18/23 12:10 Alkaline Phosphatase 107 U/L (40-130) 06/18/23 12:10 Total Protein 7.3 g/dL (6.6-8.7) 06/18/23 12:10 Albumin 4.1 g/dL (3.5-5.2) 06/18/23 12:10 Globulin 3.2 g/dL (1.3-4.6) 06/18/23 12:10 Procalcitonin 0.11 ng/mL (0-0.5) 06/18/23 12:10 All radiology interpretation(s) finalized by discharge Discharge Plan Discharge Patient Disposition: Home Clinical Impression: Abdominal pain, Enteritis Condition: Stable Prescriptions: New metronidazole 500 mg tablet 500 mg PO Q12H 7 Days Qty: 14 0RF ondansetron HCl 4 mg tablet 4 mg PO Q8H PRN (Reason: nausea and vomiting) 5 Days Qty: 14 0RF No Action gabapentin 300 mg capsule 600 mg PO BID albuterol sulfate [ProAir HFA] 90 mcg/actuation HFA aerosol inhaler 2 puff INHALATION Q6H PRN (Reason: Shortness Of Breath) metoprolol succinate 25 mg capsule,sprinkle,ER 24hr 37.5 mg PO DAILY apixaban 5 mg tablet 5 mg PO BID (DME) Carbon fiber foot plate to right See Rx Instructions .Route .MEDSUPPLY Qty: 1 0RF Rx Instructions: As directed multivitamin Tablet 1 tab PO DAILY Ultra CoQ10 75 mg capsule 75 mg PO DAILY aspirin 81 mg tablet,delayed release (DR/EC) 81 mg PO QPM cetirizine 10 mg tablet 10 mg PO QPM sertraline 100 mg tablet 50 mg PO DAILY mirtazapine 30 mg tablet 30 mg PO QPM cholecalciferol (vitamin D3) 50 mcg (2,000 unit) capsule 50 mcg PO DAILY hydroxyzine HCl 10 mg/5 mL (5 mL) solution 10 mg PO QID PRN (Reason: Sleep) losartan 50 mg tablet 50 mg PO BID Qty: 180 3RF (DME) Dexcom G7 Sensor Device See Rx Instructions .ROUTE .MEDSUPPLY Qty: 6 0RF Rx Instructions: Change every 10days (DME) Dexcom G7 Baler Misc See Rx Instructions .Route Qty: 1 0RF Rx Instructions: As directed Wixela Inhub 250-50 mcg/dose Blister With Device 1 inh INHALATION BID PRN (Reason: Shortness Of Breath) krill oil 500 mg Capsule 500 mg PO DAILY Super Beta Prostate 1 cap PO DAILY insulin glargine 100 unit/mL (3 mL) insulin pen 79 unit SUBCUT DAILY Discharge Orders: Discharge ED (Routine); Ordered 06/18/23 Ordered By: Alex Arreola Referrals: Sommer Klein, TECHNICAL SUPPORT REPRESENTATIVE [Primary Care Provider] - Discharge Diet: Advance as tolerated Discharge Activity: Resume usual activity Patient Instructions: Abdominal Pain (ED), Opioid Safety, Pain Management Activity Restrictions/Additional Instructions: Activity Restrictions/Additional Instructions: Thank you for choosing [facility] for your healthcare needs today. Please realize that you were seen in the Emergency Department and that we are providing you with an emergency medical screening exam and this may not be complete and all inclusive of all the testing and or medical work-up that you may need to determine your ailment or severity of your illness. It is very important that you follow-up as instructed with your Primary care provider or Specialist for additional evaluation and to discuss your medical treatment plan. You may return to the Emergency Department should you have concerns or if your condition changes or worsens in any way. Coding Level of Care Code ED Platform Power Technician for [address]
[2023-06-18 12:20] LABS: Basophils % 0.4 %; Eosinophils # 0.3 10^3/uL (0.0-0.8); Eosinophils % 3.5 %; Hematocrit 42.1 % (37-53); Lymphocytes # 1.7 10^3/uL (0.8-4.8); Mean Corpuscular HGB Conc 34.2 g/dL (30-55); Mean Corpuscular Hemoglobin 33.4 pg (27-33); Mean Corpuscular Volume 97.7 fl (82-101); Monocytes # 0.6 10^3/uL (0.2-0.9); Monocytes % 6.9 %; Neutrophils # 5.38 10^3/uL (1.8-7.7); Neutrophils % 67.7 %; Nucleated Red Blood Cells % 0 %; Platelet Count 132 10^3/cmm (157-399); Red Blood Count 4.31 10^6/uL (3.85-5.65); Red Cell Distribution Width 12.5 % (12.1-15.1); White Blood Count 7.95 10^3/uL (3.29-11.43)
[2023-06-18 12:36] LABS: Alanine Aminotransferase 31 U/L (0-41); Albumin Level 4.1 g/dL (3.5-5.2); Alkaline Phosphatase 107 U/L (40-130); Anion Gap 12.2 (5-19); Aspartate Amino Transferase 25 U/L (0-40); Blood Urea Nitrogen 13 mg/dL (8-23); Calcium 9.1 mg/dL (8.5-10.5); Carbon Dioxide 30 mmol/L (22-29); Chloride 98 mmol/L (98-107); Globulin 3.2 g/dL (1.3-4.6); Glucose 276 mg/dL (65-115); Osmolality Calculated 292 mOsm/kg (285-295); Potassium 4.2 mmol/L (3.5-5.1); Sodium 136 mmol/L (136-145); Total Bilirubin 0.7 mg/dL (0.15-1.2); Total Protein 7.3 g/dL (6.6-8.7)
[2023-06-18 12:42] LABS: Procalcitonin 0.11 ng/mL (0-0.5)
[2023-06-18] MEDS: iohexol 350 mg/mL 500 mL Btl (per mL) IV (12:46)
== END 2023-06-18 15:08 | disposition home or self-care (01) ==
PROVIDERS: Emergency Provider Internal Medicine; PCP Nurse Practitioner
DX: K40.90 Unilateral inguinal hernia, without obstruction or gangrene, not specified as recurrent (principal); K52.9 Noninfective gastroenteritis and colitis, unspecified; Z79.82 Long term (current) use of aspirin; Z79.4 Long term (current) use of insulin; Z87.891 Personal history of nicotine dependence; E11.9 Type 2 diabetes mellitus without complications; E78.5 Hyperlipidemia, unspecified
CPT/HCPCS: 36415; 74177; 80053; 84145; 85025; 99285; Q9967

== ENCOUNTER → 2023-06-28 08:31 | Outpatient (BNVA) | payer OTHER, SELFPAY | PROVIDERS: PCP Nurse Practitioner; Visit Provider Internal Medicine | DX: M81.0 Age-related osteoporosis without current pathological fracture; E13.65 Other specified diabetes mellitus with hyperglycemia; E78.2 Mixed hyperlipidemia; M54.9 Dorsalgia, unspecified; R33.9 Retention of urine, unspecified; R29.898 Other symptoms and signs involving the musculoskeletal system | CPT/HCPCS: 99214 ==

== ENCOUNTER → 2023-08-09 11:15 | Outpatient (BNVA) | payer OTHER, SELFPAY | PROVIDERS: PCP Nurse Practitioner; Visit Provider Internal Medicine | DX: I48.91 Unspecified atrial fibrillation (principal); E78.2 Mixed hyperlipidemia; R06.00 Dyspnea, unspecified; E11.9 Type 2 diabetes mellitus without complications; Z79.01 Long term (current) use of anticoagulants; Z79.4 Long term (current) use of insulin | CPT/HCPCS: 99214 ==

== ENCOUNTER → 2023-09-13 08:48 | Outpatient (BNVA) | payer OTHER, SELFPAY | PROVIDERS: PCP Nurse Practitioner; Visit Provider Internal Medicine | DX: M81.0 Age-related osteoporosis without current pathological fracture; E13.65 Other specified diabetes mellitus with hyperglycemia; E78.2 Mixed hyperlipidemia; R29.898 Other symptoms and signs involving the musculoskeletal system; Z79.4 Long term (current) use of insulin | CPT/HCPCS: 99214 ==

== ENCOUNTER → 2023-09-16 13:47 | Outpatient (BNVA) | payer OTHER, SELFPAY | PROVIDERS: PCP Nurse Practitioner; Referring Provider Internal Medicine; Visit Provider Orthopaedic Surgery | DX: M51.16 Intervertebral disc disorders with radiculopathy, lumbar region; E11.9 Type 2 diabetes mellitus without complications | CPT/HCPCS: 99214 ==

== ENCOUNTER 2023-09-29 22:47 | Emergency (ER) | payer OTHER, SELFPAY ==
[2023-09-29 22:48] VITALS: BP 104/67; PULSE 118; RESP 20; TEMP 37.7; O2SAT 91; BMI 38.0
--- NOTE | 2023-09-29 22:53 | XRR_ITS ---
PROCEDURE INFORMATION: Exam: XR Chest Exam date and time: 09/29/2023 10:59 PM Age: 78 years old Clinical indication: Shortness of breath; Prior surgery; Surgery date: 6+ months; Surgery type: Gb; Patient HX: C/O SOB; Additional info: AMS, hypoxia TECHNIQUE: Imaging protocol: Radiologic exam of the chest. Views: 1 view. COMPARISON: CR XR chest 2V* [id number] 02/25/2020 12:14 PM FINDINGS: Lungs: Unremarkable. No consolidation. Pleural spaces: Unremarkable. No pleural effusion. No pneumothorax. Heart/Mediastinum: Unremarkable. No cardiomegaly. Bones/joints: Unremarkable. XR/XR chest 1V portable [id number] IMPRESSION: No acute findings.
--- NOTE | 2023-09-29 22:55 | ED_ITS ---
HPI - Altered Mental Status 2 General: Chief Complaint: Altered Mental Status Stated Complaint: AMS Time Seen by Provider: 09/29/23 22:53 History of Present Illness: Patient presents to the ER via EMS with complaints of altered mental status. EMS says patient was deafly altered when they picked him up. They gave him some fluid and on the right here he started getting more alert. Patient alert and oriented x 4 at this time. Patient says he went to his PCP yesterday got diagnosed with pneumonia and got started on antibiotics. Patient does have a history of uncontrolled diabetes. Upon arrival to the ER patient had a temperature of 99.8. EMS reported temperature of 102.9. Patient's respiratory rate was 20 O2 sat of 92% on 2.5 L per nasal cannula with a heart rate of 118 bpm. PFSH ED 2 PFSH: Medical History Plaque psoriasis Seropositive rheumatoid arthritis of multiple sites Psoriasis Acute carpal tunnel syndrome of right wrist Acute carpal tunnel syndrome of left wrist History of Drain spotted fever High risk medication use Immunization counseling Acute joint pain Acute back pain with sciatica Encounter for long-term opiate analgesic use Diabetes mellitus Hyperlipidemia Post-traumatic arthritis of left ankle Venous stasis Thoracic outlet syndrome PVD (peripheral vascular disease) Other instability, left ankle Acquired hammer toe Surgical History History of ear surgery right ear cyst removal History of cholecystectomy History of angioplasty Family History Other CAD (coronary artery disease) Cancer Diabetes Hyperlipidemia Hypertension Denies family history of Rheumatoid arthritis Lupus Social History Smoking and tobacco/nicotine status: never used tobacco/nicotine Quit status (tobacco/nicotine): has quit using Year quit tobacco: 1989 Former quit date comment: 1 ppd x 30 years Second hand smoke exposure: No Alcohol intake: never Substance/Drug Use: never Physical Exam 2 Const: COMMON NORMALS: no acute distress, average body habitus, no limitations, healthy appearing, alert and well nourished HENMT: COMMON NORMALS: normocephalic, atraumatic, external ears normal and Normal external nose present; hearing grossly not normal bilaterally (Very hard of hearing even with hearing aids) HEAD & SCALP: normocephalic and atraumatic NOSE: Normal external nose present EXTERNAL EAR: Yes external ears normal Eye: COMMON NORMALS: Equal, round and reactive pupils present, EOMs intact bilaterally, conjunctivae normal and no scleral icterus CONJUNCTIVA: Yes conjunctivae normal PUPIL: Yes Equal, round and reactive pupils present Neck/C-Spine: COMMON NORMALS: no JVD Chest: COMMONS NORMALS: normal inspection of the chest and normal palpation of entire chest wall Resp: COMMON NORMALS: normal respiratory effort, No retractions and No use of accessory muscles; negative for clear to auscultation bilaterally (Mild diffuse wheezing and rhonchi bilaterally) AUSCULTATION: not clear to auscultation bilaterally (Mild diffuse wheezing and rhonchi bilaterally) Cardio: COMMON NORMALS: no JVD, regular rate, regular rhythm, S1 normal heart sound present, S2 normal heart sound present, No gallops present (Cardio), No clicks present (Cardio), No murmurs present (Cardio) and No rub (Cardio) R ATE: regular rate RHYTHM: regular rhythm HEART SOUNDS: S1 normal heart sound present and S2 normal heart sound present GI: COMMON NORMALS: Normal to inspection, nondistended, normoactive bowel sounds present, Soft to palpation, non-tender, No hepatosplenomegaly present and no masses PALPATION: Yes Soft to palpation and Yes No hepatosplenomegaly present Extremity: NARRATIVE EXTREMITY EXAM: 2+ pitting edema bilateral lower extremi ties Neuro: SENSORIUM/ORIENTATION: Yes alert Course 2 Vital Signs: Vital signs: Vital Signs Temperature 99.8 F H 09/29/23 22:48 Pulse Rate 114 H 09/29/23 23:42 Respiratory Rate 20 H 09/29/23 22:48 Blood Pressure 104/67 09/29/23 23:42 Pulse Oximetry 88 L 09/30/23 02:28 Oxygen Delivery Me thod Nasal Cannula 09/29/23 23:42 Oxygen Flow Rate 3 09/30/23 02:28 MDM - Altered Mental Status Medical Decision Making Patient was fully alert and oriented x 4 upon arrival to the ER. Lab work was obtained as well as chest x-ray. These did show the patient is influenza A positive urinalysis showed 3+ blood in his urine but negative for leukocyte Estrace and nitrates, magnesium was low at 1.5, BNP was 121, troponin baseline was 35, 2-hour troponin was 34.78 for delta of -0.22, patient required 2 L of oxygen the entire stay here. We will have respiratory home oxygen study. Patient was given 1 g of magnesium sulfate and his IV as well as Tamiflu orally. Home O2 evaluation was done by RT which patient failed. Patient needs 2 L at rest and 3 L with exertion. Differential Diagnosis Likely altered mental status Medical Records I reviewed the patient's medical records. Lab Data I reviewed the patient's lab results. 09/29/23 23:24 09/29/23 23:24 Radiology Impressions Chest X-Ray 09/29/23 22:53 IMPRESSION: No acute findings. Laboratory Results WBC 6.59 10^3/uL (3.29-11.43) 09/29/23: RBC 4.14 10^6/uL (3.85-5.65) 09/29/23 23: Hgb 13.80 g/dL (11.27-16.99) 09/29/23 23: Hct 39.9 % (37-53) 09/29/23 23: MCV 96.4 fl (82-101) 09/29/23 23: MCH 33.3 pg (27-33) H 09/29/23 23: MCHC 34.6 g/dL (30-55) 09/29/23 23: RDW 12.4 % (12.1-15.1) 09/29/23 23: Plt Count 145 10^3/cmm (157-399) L 09/29/23: MPV 9.6 fL (7.4-10.4) 09/29/23 23: Neut % (Auto) 73.8 % 09/29/23 23: Lymph % (Auto) 12.4 % 09/29/23 23: [place] % (Auto) 12.7 % 09/29/23 23: Eos % (Auto) 0.5 % 09/29/23: Baso % (Auto) 0.3 % 09/29/23: Neut # (Auto) 4.86 10^3/uL (1.8-7.7) 09/29/23: Lymph # (Auto) 0.8 10^3/uL (0.8-4.8) 09/29/23 23:24 [place] # (Auto) 0.8 10^3/uL (0.2-0.9) 09/29/23 23:24 Eos # (Auto) 0.0 10^3/uL (0.0-0.8) 09/29/23 23:24 Baso # (Auto) 0.0 10^3/uL (0.0-0.1) 09/29/23 23:24 Nucleated RBC % (auto) 0 % 09/29/23 23:24 Nucleated RBCs # 0.0 /100WBC 09/29/23 23:24 Sodium 134 mmol/L (136-145) L 09/29/23 23:24 Potassium 3.7 mmol/L (3.5-5.1) 09/29/23 23:24 Chloride 97 mmol/L (98-107) L 09/29/23 23:24 Carbon Dioxide 26 mmol/L (22-29) 09/29/23 23:24 Anion Gap 14.7 (5-19) 09/29/23 23:24 BUN 15 mg/dL (8-23) 09/29/23 23:24 Creatinine 1.1 mg/dL (0.7-1.2) 09/29/23 23:24 GFR Calculation Not Reportable 09/29/23 23:24 Glucose 175 mg/dL (65-115) H 09/29/23 23:24 Calculated Osmolality 283 mOsm/kg (285-295) L 09/29/23 23:24 Calcium 8.0 mg/dL (8.5-10.5) L 09/29/23 23:24 Magnesium 1.5 mg/dL (1.7-2.3) L 09/29/23 23:24 Total Bilirubin 0.5 mg/dL (0.15-1.2) 09/29/23 23:24 AST 47 U/L (0-40) H 09/29/23 23:24 ALT 32 U/L (0-41) 09/29/23 23:24 Alkaline Phosphatase 98 U/L (40-130) 09/29/23 23:24 Troponin T Baseline 35 ng/L (0-15) H 09/29/23 23:24 Troponin T 120 Minute 34.78 ng/L (0-15) H 09/30/23 01:23 Delta Troponin T -0.22 ABS# (0-10) L 09/30/23 01:23 NT-Pro-B Natriuret Pep 121 pg/mL (0-450) 09/29/23 23:24 Total Protein 6.7 g/dL (6.6-8.7) 09/29/23 23:24 Albumin 4.0 g/dL (3.5-5.2) 09/29/23 23: Globulin 2.7 g/dL (1.3-4.6) 09/29/23 23:24 Urine Color Yellow (Yellow) 09/30/23 00:00 Urine Appearance Sl hazy (CLEAR) A 09/30/23 00:00 Urine pH 5 (5-7) 09/30/23 00:00 Ur Specific [place] 1.020 (1.005-1.030) 09/30/23 00:00 Urine Protein 1+ (Negative) H 09/30/23 00:00 Urine Glucose (UA) Norm (Normal) 09/30/23 00:00 Urine Ketones Negative (Negative) 09/30/23 00:00 Urine Blood 3+ (Negative) H 09/30/23 00:00 Urine Nitrate Negative (Negative) 09/30/23 00:00 Urine Bilirubin Neg (Negative) 09/30/23 00:00 Urine Urobilinogen Neg mg/dL (Negative) 09/30/23 00:00 Ur Leukocyte Esterase Negative (Negative) 09/30/23 00:00 Urine RBC 0-4 /hpf (0-2) H 09/30/23 00:00 Urine WBC 0-4 /hpf (0-5) H 09/30/23 00:00 Ur Squamous Epith Cells None /hpf (0-5) 09/30/23 00:00 Amorphous Sediment Not Reportable 09/30/23 00:00 Urine Bacteria None /hpf (NONE) 09/30/23 00:00 Urine Mucus 2+ /hpf 09/30/23 00:00 Influenza Type A Ag positive (Negative) H 09/29/23 23:30 Influenza Type B Ag negative (Negative) 09/29/23 23:30 SARS-CoV-2 Ag (Rapid) negative (Negative) 09/29/23 23:30 All radiology interpretation(s) finalized by discharge EKG Data EKG 1: I personally reviewed and interpreted this EKG as follows: EKG interpretation date: 09/29/23 EKG interpretation time: 23:29 Prior EKG tracings: not available for review Interpretation: Ventricular rate 112 bpm, MT interval 159, QRS duration 93, QTc of 380, sinus tachycardia Discharge Plan Discharge Patient Disposition: Home Clinical Impression: Acute hypoxemic respiratory failure, Influenza A, Acute exacerbation of chronic obstructive pulmonary disease, Hypomagnesemia Condition: Stable Prescriptions: New Tamiflu 75 mg capsule 75 mg PO BID 5 Days Qty: 10 0RF prednisone 50 mg tablet 50 mg PO DAILY Qty: 5 0RF No Action gabapentin 300 mg capsule 600 mg PO BID albuterol sulfate [ProAir HFA] 90 mcg/actuation HFA aerosol inhaler 2 puff INHALATION Q6H PRN (Reason: Shortness Of Breath) metoprolol succinate 25 mg capsule,sprinkle,ER 24hr 37.5 mg PO DAILY apixaban 5 mg tablet 5 mg PO BID (DME) Carbon fiber foot plate to right See Rx Instructions .Route .MEDSUPPLY Qty: 1 0RF Rx Instructions: As directed insulin aspart U-100 [Novolog FlexPen U-100 Insulin] 100 unit/mL (3 mL) insulin pen 5 unit SUBCUT TID multivitamin Tablet 1 tab PO DAILY Ultra CoQ10 75 mg capsule 75 mg PO DAILY aspirin 81 mg tablet,delayed release (DR/EC) 81 mg PO QPM cetirizine 10 mg tablet 10 mg PO QPM sertraline 100 mg tablet 50 mg PO DAILY mirtazapine 30 mg tablet 30 mg PO QPM cholecalciferol (vitamin D3) 50 mcg (2,000 unit) capsule 50 mcg PO DAILY hydroxyzine HCl 10 mg/5 mL (5 mL) solution 10 mg PO QID PRN (Reason: Sleep) losartan 50 mg tablet 50 mg PO BID Qty: 180 3RF amlodipine 5 mg tablet 5 mg PO DAILY Qty: 90 3RF Ozempic 1 mg/dose (4 mg/3 mL) pen injector 1 mg SUBCUT Q7D 30 Days Qty: 3 2RF (DME) Dexcom G7 Surface [employer] Systems Logger Misc See Rx Instructions .Route Qty: 1 0RF Rx Instructions: As directed (DME) Dexcom G7 Sensor Device See Rx Instructions .ROUTE .MEDSUPPLY Qty: 9 0RF Rx Instructions: Change every 10days Wixela Inhub 250-50 mcg/dose Blister With Device 1 inh INHALATION BID PRN (Reason: Shortness Of Breath) krill oil 500 mg Capsule 500 mg PO DAILY Super Beta Prostate 1 cap PO DAILY insulin glargine 100 unit/mL (3 mL) insulin pen 82 unit SUBCUT DAILY Discharge Orders: Discharge ED (Routine); Ordered 09/30/23 Ordered By: Jose Swanson Other Ambulatory Orders: DME: Oxygen (Order) Location: None Selected Ordered By: Jose Swanson Referrals: Sommer Klein FNP [Primary Care Provider] - 1 week Patient Instructions: Influenza (DC), Hypomagnesemia (ED), Hypoxia (ED), Acute Respiratory Failure (ED) Coding Level of Care Code ED Hand Stamper for [address]
--- NOTE | 2023-09-29 23:29 | ECG_ITS ---
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 Measurements Intervals [place] Rate: 112 P: 17 [place]: 159 QRS: -22 QRSD: 93 T: 47 QT: 314 QTc: 429 Interpretive Statements SINUS TACHYCARDIA BORDERLINE LEFT AXIS DEVIATION [QRS AXIS < -20] LOW QRS VOLTAGE IN PRECORDIAL LEADS [QRS DEFLECTION < 1.0 mV IN CHEST LEADS] ABNORMAL RHYTHM ECG No previous ECG available for comparison Electronically Signed On 09-30-2023 17:32:31 DISTRICT MEDICAL EXAMINER by Ken Diaz M.D. [email or web address]
[2023-09-29 23:38] LABS: Basophils % 0.3 %; Eosinophils % 0.5 %; Hematocrit 39.9 % (37-53); Lymphocytes # 0.8 10^3/uL (0.8-4.8); Lymphocytes % 12.4 %; Mean Corpuscular HGB Conc 34.6 g/dL (30-55); Mean Corpuscular Hemoglobin 33.3 pg (27-33); Mean Corpuscular Volume 96.4 fl (82-101); Mean Platelet Volume 9.6 fL (7.4-10.4); Monocytes # 0.8 10^3/uL (0.2-0.9); Monocytes % 12.7 %; Neutrophils # 4.86 10^3/uL (1.8-7.7); Neutrophils % 73.8 %; Nucleated Red Blood Cells % 0 %; Platelet Count 145 10^3/cmm (157-399); Red Blood Count 4.14 10^6/uL (3.85-5.65); Red Cell Distribution Width 12.4 % (12.1-15.1); White Blood Count 6.59 10^3/uL (3.29-11.43)
[2023-09-29] MEDS: acetaminophen 500 mg Tablet 1000 MG PO (23:41)
[2023-09-29 23:42] VITALS: BP 104/67; PULSE 114; O2SAT 92
[2023-09-29 23:43] LABS: Influenza A by IFA positive (Negative); Influenza B by IFA negative (Negative)
[2023-09-30] VITALS (12 sets, daily range): BP systolic 118–143; BP diastolic 63–85; PULSE 88–115; O2SAT 87–94
[2023-09-30 00:02] LABS: Troponin(5th) Baseline 35 ng/L (0-15)
[2023-09-30 00:08] LABS: Alanine Aminotransferase 32 U/L (0-41); Alkaline Phosphatase 98 U/L (40-130); Anion Gap 14.7 (5-19); Aspartate Amino Transferase 47 U/L (0-40); Blood Urea Nitrogen 15 mg/dL (8-23); Carbon Dioxide 26 mmol/L (22-29); Chloride 97 mmol/L (98-107); Creatinine Clr Calc Pharmacy 67.6761; Globulin 2.7 g/dL (1.3-4.6); Glucose 175 mg/dL (65-115); Magnesium 1.5 mg/dL (1.7-2.3); NT Pro B Type Natriuretic Pept 121 pg/mL (0-450); Osmolality Calculated 283 mOsm/kg (285-295); Potassium 3.7 mmol/L (3.5-5.1); Sodium 134 mmol/L (136-145); Total Bilirubin 0.5 mg/dL (0.15-1.2); Total Protein 6.7 g/dL (6.6-8.7)
[2023-09-30 00:11] LABS: SARS Covid-2 Antigen negative (Negative)
[2023-09-30] MEDS: oseltamivir phosphate 75 mg Capsule PO (00:35)
[2023-09-30] MEDS: magnesium sulfate premix 1 GM/100 ML PIGGYBACK IV (00:36)
[2023-09-30 00:41] LABS: Add Urine Culture? No; Add Urine Microscopic? YES; Bilirubin Urine Neg (Negative); Blood Urine 3+ (Negative); Glucose Urine UA Norm (Normal); Ketones Urine Negative (Negative); Leukocyte Esterase Urine Negative (Negative); Mucus Urine 2+ /hpf; Nitrate Urine Negative (Negative); Protein Urine 1+ (Negative); RBC Urine 0-4 /hpf (0-2); Urine Appearance SL Hazy (CLEAR); Urine Color Yellow (Yellow); Urobilinogen Urine Neg (Negative); WBC Urine 0-4 /hpf (0-5); pH Urine 5 (5-7)
--- NOTE | 2023-09-30 00:53 | ECG_ITS ---
[facility] Test Date: 2023-09-29 Pat Name: Pasha Cobb Department: Room: Gender: Male Barrel Charrer: : 1945 Requested By: Jose Swanson Order Number: [id number] Glenna MD: Ken Diaz M.D. Measurements Intervals [place] Rate: 112 P: 17 DC: 159 QRS: -22 QRSD: 93 T: 47 QT: 314 QTc: 429 Interpretive Statements SINUS TACHYCARDIA BORDERLINE LEFT AXIS DEVIATION [QRS AXIS < -20] LOW QRS VOLTAGE IN PRECORDIAL LEADS [QRS DEFLECTION < 1.0 mV IN CHEST LEADS] ABNORMAL RHYTHM ECG No previous ECG available for comparison Electronically Signed On 09-30-2023 17:58:03 SHARED SERVICES REPRESENTATIVE by Ken Diaz M.D. [id number]
[2023-09-30 01:52] LABS: Troponin 5 2HR 34.78 ng/L (0-15)
[2023-09-30 01:53] LABS: Troponin 5 2HR Delta -0.22 ABS# (0-10)
== END 2023-09-30 04:21 | disposition home or self-care (01) ==
PROVIDERS: Emergency Provider Emergency Medicine; PCP Nurse Practitioner
DX: J44.1 Chronic obstructive pulmonary disease with (acute) exacerbation (principal); J10.1 Influenza due to other identified influenza virus with other respiratory manifestations; J96.01 Acute respiratory failure with hypoxia; E83.42 Hypomagnesemia; Z79.82 Long term (current) use of aspirin; Z79.4 Long term (current) use of insulin; Z79.85 Long-term (current) use of injectable non-insulin antidiabetic drugs; Z11.52 Encounter for screening for COVID-19; Z87.891 Personal history of nicotine dependence; E11.9 Type 2 diabetes mellitus without complications; E78.5 Hyperlipidemia, unspecified
CPT/HCPCS: 36415; 71045; 80053; 81001; 83735; 83880; 84484; 85025; 87040; 87426; 87804; 93005; 96365; 99285; J3475

== ENCOUNTER → 2023-12-05 09:49 | Outpatient (BNVA) | payer OTHER, SELFPAY | PROVIDERS: PCP Nurse Practitioner; Visit Provider Internal Medicine | DX: E11.9 Type 2 diabetes mellitus without complications (principal); E78.2 Mixed hyperlipidemia | CPT/HCPCS: 80053; 80061; 82043; 83036 ==

== ENCOUNTER → 2023-12-12 09:59 | Outpatient (BNVA) | payer OTHER, SELFPAY | PROVIDERS: PCP Nurse Practitioner; Visit Provider Internal Medicine | DX: E78.2 Mixed hyperlipidemia; M81.0 Age-related osteoporosis without current pathological fracture; E13.65 Other specified diabetes mellitus with hyperglycemia; M79.659 Pain in unspecified thigh; M54.9 Dorsalgia, unspecified; R33.9 Retention of urine, unspecified; R29.898 Other symptoms and signs involving the musculoskeletal system; M25.561 Pain in right knee; M25.562 Pain in left knee; Z79.85 Long-term (current) use of injectable non-insulin antidiabetic drugs; Z79.4 Long term (current) use of insulin | CPT/HCPCS: 99214 ==

== ENCOUNTER → 2024-03-12 09:27 | Outpatient (BNVA) | payer OTHER, SELFPAY | PROVIDERS: PCP Nurse Practitioner; Visit Provider Nurse Practitioner Family | DX: I48.21 Permanent atrial fibrillation (principal); I10 Essential (primary) hypertension | CPT/HCPCS: 99214 ==

== ENCOUNTER → 2024-06-06 09:19 | Outpatient (BNVA) | payer MEDICARE, SELFPAY | PROVIDERS: PCP Nurse Practitioner; Visit Provider Internal Medicine | DX: E11.9 Type 2 diabetes mellitus without complications (principal); E78.2 Mixed hyperlipidemia | CPT/HCPCS: 80053; 80061; 82043; 83036 ==

== ENCOUNTER → 2024-06-28 09:54 | Outpatient (BNVA) | payer OTHER, SELFPAY | PROVIDERS: PCP Nurse Practitioner; Visit Provider Internal Medicine | DX: Z79.899 Other long term (current) drug therapy; M81.0 Age-related osteoporosis without current pathological fracture; E78.2 Mixed hyperlipidemia; M79.659 Pain in unspecified thigh; M54.9 Dorsalgia, unspecified; R33.9 Retention of urine, unspecified; R29.898 Other symptoms and signs involving the musculoskeletal system; Z79.85 Long-term (current) use of injectable non-insulin antidiabetic drugs; E13.65 Other specified diabetes mellitus with hyperglycemia | CPT/HCPCS: 99214 ==

== ENCOUNTER → 2024-09-17 13:19 | Outpatient (BNVA) | payer OTHER, SELFPAY | PROVIDERS: PCP Nurse Practitioner; Visit Provider Internal Medicine | DX: I48.91 Unspecified atrial fibrillation (principal); E78.2 Mixed hyperlipidemia; R06.00 Dyspnea, unspecified; E11.9 Type 2 diabetes mellitus without complications; Z87.891 Personal history of nicotine dependence; R42 Dizziness and giddiness; Z79.01 Long term (current) use of anticoagulants; Z79.82 Long term (current) use of aspirin; Z79.85 Long-term (current) use of injectable non-insulin antidiabetic drugs | CPT/HCPCS: 99214 ==

== ENCOUNTER → 2024-11-27 09:58 | Outpatient (BNVA) | payer MEDICARE, SELFPAY | PROVIDERS: PCP Nurse Practitioner; Visit Provider Internal Medicine | DX: Z79.891 Long term (current) use of opiate analgesic (principal); E11.9 Type 2 diabetes mellitus without complications; E13.65 Other specified diabetes mellitus with hyperglycemia; Z79.899 Other long term (current) drug therapy | CPT/HCPCS: 80053; 80061; 82043; 83036 ==

== ENCOUNTER → 2024-12-26 09:14 | Outpatient (BNVA) | payer OTHER, SELFPAY | PROVIDERS: PCP Nurse Practitioner; Visit Provider Internal Medicine | DX: E11.9 Type 2 diabetes mellitus without complications (principal); M54.9 Dorsalgia, unspecified; E78.2 Mixed hyperlipidemia; M81.0 Age-related osteoporosis without current pathological fracture; Z79.899 Other long term (current) drug therapy | CPT/HCPCS: 99214 ==

== ENCOUNTER → 2025-01-21 13:46 | Outpatient (BNVA) | payer OTHER, SELFPAY | PROVIDERS: PCP Nurse Practitioner; Referring Provider Nurse Practitioner; Visit Provider Student in an Organized Health Care Education/Training Program | DX: K46.9 Unspecified abdominal hernia without obstruction or gangrene (principal) | CPT/HCPCS: 99204 ==

== ENCOUNTER → 2025-03-27 09:30 | Outpatient (BNVA) | payer OTHER, SELFPAY | PROVIDERS: PCP Nurse Practitioner; Visit Provider Internal Medicine | DX: E11.9 Type 2 diabetes mellitus without complications (principal); M81.0 Age-related osteoporosis without current pathological fracture; E78.2 Mixed hyperlipidemia; M79.659 Pain in unspecified thigh; M54.9 Dorsalgia, unspecified; R33.9 Retention of urine, unspecified; R29.898 Other symptoms and signs involving the musculoskeletal system; Z79.84 Long term (current) use of oral hypoglycemic drugs; Z79.891 Long term (current) use of opiate analgesic; Z79.899 Other long term (current) drug therapy | CPT/HCPCS: 99214 ==

== ENCOUNTER → 2025-05-07 14:17 | Outpatient (BNVA) | payer OTHER, SELFPAY | PROVIDERS: PCP Nurse Practitioner; Visit Provider Nurse Practitioner Family | DX: L40.0 Psoriasis vulgaris (principal); L82.1 Other seborrheic keratosis; D18.01 Hemangioma of skin and subcutaneous tissue; L30.9 Dermatitis, unspecified | CPT/HCPCS: 11104; 99213 ==

== ENCOUNTER 2025-05-29 18:04 | Inpatient (IN) | payer OTHER, MEDICARE, SELFPAY ==
--- OUTSIDE RECORDS SUMMARY | 2023-11-29 04:30 | XMS_ITS ---
Author Organization [facility] Address [address] [place] [address] Care Team Providers Care Hand Ii Cutter Name Role Phone Sommer Patel Primary Care Provid er Unavailable Gastroenterology, [facility] Unavailable [phone] [place], [place] Unavailable Unavailable Mi Mcpherson Unavailable [phone] REASON FOR VISIT Steatosis of Liver Vital Signs Height 64 in 11/29/2023 Weight 231 lbs 11/29/2023 BMI 39.65 kg/m2 11/29/2023 Height-cm 162.56 cm 11/29/2023 Weight-kg 104.78 kg 11/29/2023 Encounters Encounter Location Date Provider Diagnosis [facility] [address] [place] [address] 11/29/2023 Mi Mcpherson Steatosis of liver K76.0 Assessments Encounter Date Diagnosis (ICD Code) Assessment Notes Treatment Notes Treatment Clinical Notes Section Notes 11/29/2023 Steatosis of liver (ICD-10 - K76.0) Plan Of Treatment No Information Progress Notes * Pasha ANDERSON SrDOB:05/1945 (80 yo M)Acc No.[id number]:11/29/2023 Patient: Doreen Pasha villarreal Sr Provider: Cindy Mcpherson APRN :1945 A ge:78 Y S ex:Male Date:11/29/2023 Address:[address] [place], [place], [id number] Pcp:Sommer VALLADARES, BONSAI TENDER BC Check Out:11:33 AM FINISHER SPECIAL STOCKS Subjective: * Chief Complaints: * S teatosis of Liver Objective: * Vitals: H t: 64 in, Wt:231lbs, Wt-k.78 kg, BMI:39.65Index, Ht-cm: 162.56 cm. Assessment: * Assessment: 1. S teatosis of liver - K76.0 Plan: * Procedure Codes: 9 1200 LIVER ELASTOGRAPHY Billing Information: * Procedure Codes: 04684 LIVER ELASTOGRAPHY. * Electronic signature of BERNARDO Aranda on 05/29/2025 at 06:33 PM FINISHER SPECIAL STOCKS Sign off status: Pending * Provider: Cindy Mcpherson APRN Date: 0 11/29/2023 Generated for Melody jain/Samantha/Irena on: 07/29/2024 06:33 PM FINISHER SPECIAL STOCKS
--- OUTSIDE RECORDS SUMMARY | 2023-11-29 04:30 | XMS_ITS ---
Author Organization [facility] Address [address] [place] [address] Care Team Providers Care Night Shift Supervisor Name Role Phone Sommer Patel Primary Care Provid er Unavailable Gastroenterology, [facility] Unavailable [phone] [place], [place] Unavailable Unavailable Mi Mcpherson Unavailable [phone] REASON FOR VISIT Steatosis of Liver Vital Signs Height 64 in 11/29/2023 Weight 231 lbs 11/29/2023 BMI 39.65 kg/m2 11/29/2023 Height-cm 162.56 cm 11/29/2023 Weight-kg 104.78 kg 11/29/2023 Encounters Encounter Location Date Provider Diagnosis [facility] [address] [place] [address] 11/29/2023 Mi Mcpherson Steatosis of liver K76.0 Assessments Encounter Date Diagnosis (ICD Code) Assessment Notes Treatment Notes Treatment Clinical Notes Section Notes 11/29/2023 Steatosis of liver (ICD-10 - K76.0) Plan Of Treatment No Information Progress Notes * Pasha ANDERSON SrDOB:05/1945 (80 yo M)Acc No.[id number]:11/29/2023 Patient: Doreen Pasha villarreal Sr Provider: Cindy Mcpherson APRN :1945 A ge:78 Y S ex:Male Date:11/29/2023 Address:[address] [place], [place], [id number] Pcp:Sommer VALLADARES, TIRE DESIGN ENGINEER BC Check Out:11:33 AM FLEET SALES MANAGER Subjective: * Chief Complaints: * S teatosis of Liver Objective: * Vitals: H t: 64 in, Wt:231lbs, Wt-k.78 kg, BMI:39.65Index, Ht-cm: 162.56 cm. Assessment: * Assessment: 1. S teatosis of liver - K76.0 Plan: * Procedure Codes: 9 1200 LIVER ELASTOGRAPHY Billing Information: * Procedure Codes: 09467 LIVER ELASTOGRAPHY. * Electronic signature of BERNARDO Aranda on 05/30/2025 at 06:00 AM FLEET SALES MANAGER Sign off status: Pending * Provider: Cindy Mcpherson APRN Date: 0 11/29/2023 Generated for Melody jain/Samantha/Irena on: 07/30/2024 06:00 AM FLEET SALES MANAGER
--- OUTSIDE RECORDS SUMMARY | 2024-11-26 04:30 | XMS_ITS ---
Author Organization [facility] Address [address] [place] [address] Care Team Providers Care Parts Casting Machine Operator Name Role Phone Nate TORO, Sommer Primary Care Provid er Unavailable Gastroenterology, [facility] Unavailable [phone] [place], [place] Unavailable Unavailable Mi Mcpherson Unavailable [phone] REASON FOR VISIT 1yr Steatosis of Liver Encounters Encounter Location Date Provider Diagnosis [facility] [address] [place] [address] 11/26/2024 Mi Mcpherson Plan Of Treatment No Information Progress Notes * Pasha ANDERSON SrDOB:05/1945 (80 yo M)Acc No.[id number]:11/26/2024 Progress Notes Patient: Doreen villarreal Pasha Collins Sr Provider: Cindy Mcpherson APRN :1945 A ge:79 Y S ex:Male Date:11/26/2024 Address:[address] , [place], [id number] Pcp:Sommer VALLADARES, DIMAS BC Subjective: * Chief Complaints: * 1 yr Steatosis of Liver * Electronic signature of BERNARDO Aranda on 05/29/2025 at 06:34 PM WARP COILER Sign off status: Pending * Provider: Cindy Mcpherson APRN Date: 0 11/26/2024 Generated for Printi ng/Faxing/eTransmitting on: 1 07/29/2024 06:34 PM WARP COILER
--- OUTSIDE RECORDS SUMMARY | 2024-11-26 04:30 | XMS_ITS ---
Author Organization [facility] Address [address] [place] [address] Care Team Providers Care Ribbon Winder Name Role Phone Nate TORO, Sommer Primary Care Provid er Unavailable Gastroenterology, [facility] Unavailable [phone] [place], [place] Unavailable Unavailable Mi Mcpherson Unavailable [phone] REASON FOR VISIT 1yr Steatosis of Liver Encounters Encounter Location Date Provider Diagnosis [facility] [address] [facility] [place] [address] 11/26/2024 Mi Mcpherson Plan Of Treatment No Information Progress Notes * Pasha ANDERSON SrDOB:05/1945 (80 yo M)Acc No.[id number]:11/26/2024 Progress Notes Patient: Doreen villarreal Pasha Collins Sr Provider: Cindy Mcpherson APRN :1945 A ge:79 Y S ex:Male Date:11/26/2024 Address:[address] [facility], [id number] Pcp:Sommer VALLADARES, DIMAS BC Subjective: * Chief Complaints: * 1 yr Steatosis of Liver * Electronic signature of BERNARDO Aranda on 05/30/2025 at 06:00 AM ROLLER GOLD LEAF Sign off status: Pending * Provider: Cindy Mcpherson APRN Date: 0 11/26/2024 Generated for Printi ng/Faxing/eTransmitting on: 1 07/30/2024 06:00 AM ROLLER GOLD LEAF
--- NOTE | 2025-05-29 17:46 | XRR_ITS ---
PROCEDURE INFORMATION: Exam: XR Chest Exam date and time: 05/29/2025 6:05 PM Age: 80 years old Clinical indication: Pain; Angina pectoris; Additional info: Chest pain TECHNIQUE: Imaging protocol: Radiologic exam of the chest. Views: 1 view. COMPARISON: CR XR chest 1V portable [id number] 09/29/2023 10:59 PM FINDINGS: Lungs: Unremarkable. No consolidation. Pleural spaces: Unremarkable. No pleural effusion. No pneumothorax. Heart/Mediastinum: Unremarkable. No cardiomegaly. Bones/joints: Unremarkable. XR/XR chest 1V portable [id number] IMPRESSION: No acute findings.
[2025-05-29 18:04] VITALS: BP 108/73; PULSE 103; RESP 17; TEMP 36.9; O2SAT 100
--- NOTE | 2025-05-29 18:18 | W.ED.SYNCOPE ---
HPI - Syncope General: Chief Complaint: Syncope Stated Complaint: syncope Time Seen by Provider: 05/29/25 18:07 History of Present Illness: 80-year-old man who presents emergency room with abdominal pain and a near syncopal episode at the [facility]. He been having pain throughout his belly and noticed a knot in the middle of his belly today. This had not bothered him in the past he says. No nausea or vomiting but he had not been able to have a bowel movement. He is quite tender on exam and has a very tender umbilical hernia. No chest pain. No altered mental status. No focal motor deficits. No nausea or vomiting. Related Data Home Medications ?Medication ?Instructions ?Recorded ?Confirmed albuterol sulfate 90 mcg/actuation 2 puff inhalation Q6H PRN 08/27/19 03/27/25 aerosol inhaler (ProAir HFA) Shortness Of Breath metoprolol succinate 25 mg capsule 37.5 mg PO DAILY 08/27/19 03/27/25 sprinkle, ext. release 24 hr apixaban 5 mg tablet 5 mg PO BID 04/09/21 03/27/25 gabapentin 300 mg capsule 600 mg PO BID 04/28/21 03/27/25 coenzyme Q10 75 mg capsule (Ultra 75 mg PO DAILY 10/15/21 03/27/25 CoQ10) multivitamin 1 tab PO DAILY 10/15/21 03/27/25 Super Beta Prostate 1 cap PO DAILY 06/18/23 03/27/25 fluticasone 250 mcg-salmeterol 50 1 inh inhalation BID PRN Shortness 06/18/23 03/27/25 mcg/dose blistr powdr for Of Breath inhalation (Wixela Inhub) krill oil 500 mg capsule 500 mg PO DAILY 06/18/23 03/27/25 Previous Rx's ?Medication ?Instructions ?Recorded blood-glucose sensor (Falcon App G7 #9 ea 09/24/24 Sensor device) losartan 50 mg tablet 25 mg (1/2 x 50 mg) PO ONCE #90 10/18/24 tabs semaglutide 1 mg/dose (4 mg/3 mL) See Rx Instructions .Route 04/25/25 subcutaneous pen injector (Ozempic) .COMPLEX #3 mL Allergies Allergy/AdvReac Type Severity Reaction Status Date / Time flunisolide Allergy Unknown Verified 01/21/25 13:48 gemfibrozil Allergy Unknown Verified 01/21/25 13:48 metformin Allergy unknown Verified 01/21/25 13:48 Penicillins Allergy ALGY-Rash Verified 01/21/25 13:48 pregabalin Allergy unknown Verified 01/21/25 13:48 rofecoxib Allergy Unknown Verified 01/21/25 13:48 methotrexate AdvReac Mild ADR-Cough Verified 01/21/25 13:48 oxycodone AdvReac Mild ADR-Gastrointestinal Verified 01/21/25 13:48 Upset Review of Systems Narrative: Constitutional symptoms: Negative except as documented in HPI. Skin symptoms: Negative except as documented in HPI. Eye symptoms: Negative except as documented in HPI. ENMT symptoms: Negative except as documented in HPI. Respiratory symptoms: Negative except as documented in HPI. Cardiovascular symptoms: Negative except as documented in HPI. Gastrointestinal symptoms: Negative except as documented in HPI. Genitourinary symptoms: Negative except as documented in HPI. Musculoskeletal symptoms: Negative except as documented in HPI. Neurologic symptoms: Negative except as documented in HPI. Psychiatric symptoms: Negative except as documented in HPI. Endocrine symptoms: Negative except as documented in HPI. PFSH ED PFSH: Medical History (Updated 05/29/25 @ 20:33 by Katerina Finn MD) Plaque psoriasis Seropositive rheumatoid arthritis of multiple sites Psoriasis Acute carpal tunnel syndrome of right wrist Acute carpal tunnel syndrome of left wrist History of [place] spotted fever High risk medication use Immunization counseling Acute joint pain Acute back pain with sciatica Encounter for long-term opiate analgesic use Diabetes mellitus Hyperlipidemia Post-traumatic arthritis of left ankle Venous stasis Thoracic outlet syndrome PVD (peripheral vascular disease) Other instability, left ankle Acquired hammer toe Surgical History (Updated 01/21/25 @ 14:22 by TREY Armstrong) History of ear surgery right ear cyst removal History of cholecystectomy History of angioplasty Family History Other CAD (coronary artery disease) Cancer Diabetes Hyperlipidemia Hypertension Denies family history of Rheumatoid arthritis Lupus Social History Smoking and tobacco/nicotine status: former use of tobacco/nicotine Quit status (tobacco/nicotine): has quit using Year quit tobacco: 1989 Former quit date comment: 1 ppd x 30 years Second hand smoke exposure: No Alcohol intake: never Substance/Drug Use: never Physical Exam Narrative: EXAM NARRATIVE: General: Alert, no acute distress. Skin: Warm, dry. Head: Normocephalic, atraumatic. Neck: Supple, trachea midline. Eye: Extraocular movements are intact. Ears, nose, mouth and throat: mucosa moist. Cardiovascular: Regular, Normal peripheral perfusion. Respiratory: Lungs are clear to auscultation, respirations are non-labored, breath sounds are equal, Symmetrical chest wall expansion. Gastrointestinal: Patient has a very tender small umbilical hernia. Some mild tenderness diffusely otherwise. Musculoskeletal: Normal ROM, no deformity. Neurological: Alert and oriented, No focal neurological deficit observed. Psychiatric: Cooperative, appropriate mood & affect. Course Vital Signs: Vital signs: Vital Signs Temperature 98.4 F 05/29/25 18:04 Pulse Rate 103 H 05/29/25 18:04 Respiratory Rate 17 05/29/25 18:04 Blood Pressure 108/73 05/29/25 18:04 Pulse Oximetry 100 05/29/25 18:04 Oxygen Delivery Me thod Room Air 05/29/25 18:04 MDM - Syncope Medical Decision Making Medical decision making: Patient's reason for coming to the emergency room syncope and abdominal pain Social determinants patient is retired I reviewed the patient's medical record. Patient most recently seen in endocrinology and dermatology here. I reviewed the patient's current home meds Alternate historians: None Medical decision making: Differential diagnosis including but not limited to and based on the above HPI, review of systems and physical exam in this patient with syncope: Vasovagal, orthostatics hypotension, cardiac dysrhythmia, myocardial infarction, infection and hypotension, Orders placed to evaluate differential diagnosis based on the above differential, HPI and physical exam Also a CT was ordered to evaluate for umbilical hernia. Possible obstruction and incarceration. EKG: Time 1823. Rate 100. Atrial fibrillation with rapid ventricular response, No ST-T changes, no ectopy, This was reviewed and interpreted by myself the ER physician at 183 EKG: Time 2026. Rate 89. Atrial fibrillation No ST-T changes, no ectopy, This was reviewed and interpreted by myself the ER physician at 2034 Chest x-ray: No acute process. No infiltrate. No pneumothorax. This was reviewed and interpreted by myself the emergency room physician. I also reviewed the radiology report. CT of the abdomen pelvis shows a incarcerated piece of bowel and an umbilical hernia with possible small bowel obstruction. Lab Review: Laboratory results were reviewed and interpreted by myself the emergency room physician. No leukocytosis. No anemia. No renal failure. Cardiac markers are negative. Urinalysis is negative. Assessment of risk: Level of risk: Moderate. Multiple comorbidities Hospitalization considerations: Patient is being admitted for observation Reexamination: Consultation: I spoke with Dr. Martinez. I had reexamined the patient in the hernia had reduced spontaneously. Likely from laying flat in CT. He recommends admission to the hospitalist and he will do serial evaluations. Consultation: I spoke Dr. Ewing who agrees to admission. Assessment and plan: Small bowel obstruction Umbilical hernia Syncope -I discussed the patient with the hospitalist on-call who is admitting the patient. - Discussed findings and plan with patient. Answered any questions. - All laboratory values were reviewed and interpreted personally by myself, the ER physician - All imaging was reviewed and interpreted personally by myself, the ER physician. - Evaluation and treatment of this problem were appropriate in the emergency setting. Lab Data 05/29/25 18:07 05/29/25 18:07 Radiology Impressions Chest X-Ray 05/29/25 17:46 IMPRESSION: No acute findings. Abdomen/Pelvis CT 05/29/25 18:20 IMPRESSION: Findings of incarcerated umbilical hernia containing small bowel there appears thickened edematous with findings of partial small bowel obstruction. Vascular compromise within both small bowel can not be excluded consider further workup to include surgical evaluation. Normal appendix Stable dilation of the infrarenal aorta as above noted for follow-up guidelines see below statement: Follow-up imaging in 5 years is recommended. COMMENT: THIS REPORT CONTAINS FINDINGS THAT MAY BE CRITICAL TO PATIENT CARE. The exam findings were verbally communicated by me to KATERINA FINN via telephone conference at 7:23 PM ROOFING LABORER on 05/29/2025. The findings were acknowledged and understood. Laboratory Results WBC 8.53 10^3/uL (3.29-11.43) 05/29/25 18:07 RBC 4.28 10^6/uL (3.85-5.65) 05/29/25 18:07 Hgb 13.80 g/dL (11.27-16.99) 05/29/25 18:07 Hct 39.1 % (37-53) 05/29/25 18:07 MCV 91.4 fl (82-101) 05/29/25 18:07 MCH 32.2 pg (27-33) 05/29/25 18:07 MCHC 35.3 g/dL (30-55) 05/29/25 18:07 RDW 12.2 % (12.1-15.1) 05/29/25 18:07 Plt Count 155 10^3/cmm (157-399) L 05/29/25 18:07 MPV 9.9 fL (7.4-10.4) 05/29/25 18:07 Neut % (Auto) 71.7 % 05/29/25 18:07 Lymph % (Auto) 19.9 % 05/29/25 18:07 [facility] % (Auto) 7.0 % 05/29/25 18:07 Eos % (Auto) 0.6 % 05/29/25 18:07 Baso % (Auto) 0.6 % 05/29/25 18:07 Neut # (Auto) 6.11 10^3/uL (1.8-7.7) 05/29/25 18:07 Lymph # (Auto) 1.7 10^3/uL (0.8-4.8) 05/29/25 18:07 [facility] # (Auto) 0.6 10^3/uL (0.2-0.9) 05/29/25 18:07 Eos # (Auto) 0.1 10^3/uL (0.0-0.8) 05/29/25 18:07 Baso # (Auto) 0.1 10^3/uL (0.0-0.1) 05/29/25 18:07 Nucleated RBC % (auto) 0 % 05/29/25 18:07 Nucleated RBCs # 0.0 /100WBC 05/29/25 18:07 Sodium 140 mmol/L (136-145) 05/29/25 18:07 Potassium 3.9 mmol/L (3.5-5.1) 05/29/25 18:07 Chloride 100 mmol/L (98-107) 05/29/25 18:07 Carbon Dioxide 26 mmol/L (22-29) 05/29/25 18:07 Anion Gap 17.9 (5-19) 05/29/25 18:07 BUN 14 mg/dL (8-23) 05/29/25 18:07 Creatinine 0.9 mg/dL (0.7-1.2) 05/29/25 18:07 GFR Calculation Not Reportable 05/29/25 18:07 Glucose 124 mg/dL (65-115) H 05/29/25 18:07 Calculated Osmolality 292 mOsm/kg (285-295) 05/29/25 18:07 Lactic Acid 1.7 mmol/L (0.5-2.2) 05/29/25 18:07 Calcium 9.7 mg/dL (8.5-10.5) 05/29/25 18:07 Total Bilirubin 1.2 mg/dL (0.15-1.2) 05/29/25 18:07 AST 21 U/L (0-40) 05/29/25 18:07 ALT 13 U/L (0-41) 05/29/25 18:07 Alkaline Phosphatase 89 U/L (40-130) 05/29/25 18:07 Troponin T Baseline 34 ng/L (0-15) H 05/29/25 18:07 Troponin T 120 Minute 28.49 ng/L (0-15) H 05/29/25 19:53 Delta Troponin T -5.51 ABS# (0-10) L 05/29/25 19:53 NT-Pro-B Natriuret Pep 948 pg/mL (0-450) H 05/29/25 18:07 Total Protein 7.0 g/dL (6.6-8.7) 05/29/25 18:07 Albumin 4.6 g/dL (3.5-5.2) 05/29/25 18:07 Globulin 2.4 g/dL (1.3-4.6) 05/29/25 18:07 Urine Color Yellow (Yellow) 05/29/25 19:53 Urine Appearance Clear (CLEAR) 05/29/25 19:53 Urine pH 7.5 (5-7) 05/29/25 19:53 Ur Specific [place] 1.007 (1.005-1.030) 05/29/25 19:53 Urine Protein Negative (Negative) 05/29/25 19:53 Urine Glucose (UA) Negative (Normal) 05/29/25 19:53 Urine Ketones Negative (Negative) 05/29/25 19:53 Urine Blood Negative (Negative) 05/29/25 19:53 Urine Nitrate Negative (Negative) 05/29/25 19:53 Urine Bilirubin Negative (Negative) 05/29/25 19:53 Urine Urobilinogen 0.2 mg/dL (Negative) 05/29/25 19:53 Ur Leukocyte Esterase Negative (Negative) 05/29/25 19:53 Urine RBC 0-2 /hpf (0-2) 05/29/25 19:53 Urine WBC 0-5 /hpf (0-5) 05/29/25 19:53 Ur Squamous Epith Cells 0-5 /hpf (0-5) 05/29/25 19:53 Amorphous Sediment Not Reportable 05/29/25 19:53 Urine Bacteria None seen /hpf (NONE) 05/29/25 19:53 Hyaline Casts 0.40 /lpf 05/29/25 19:53 All radiology interpretation(s) finalized by discharge Discharge Plan Discharge Patient Disposition: Placed in Observation Clinical Impression: Incarcerated umbilical hernia, Small bowel obstruction, Syncope Coding Level of Care Code ED Twister Frame Tender for [address]
--- NOTE | 2025-05-29 18:20 | CTR_ITS ---
PROCEDURE INFORMATION: Exam: CT Abdomen And Pelvis Without Contrast Exam date and time: 05/29/2025 7:07 PM Age: 80 years old Clinical indication: Abdominal pain; PT had witnessed syncopal episode, approx 5min long. Noticed feeling weak/dizzy prior to syncopal episode. PT was assisted to ground. Has had some dizziness/weakness x1 month. C/O umbilical abd pain, does have HX of hernia. TECHNIQUE: Imaging protocol: Computed tomography of the abdomen and pelvis without contrast. Radiation optimization: All CT scans at this facility use at least one of these dose optimization techniques: automated exposure control; mA and/or kV adjustment per patient size (includes targeted exams where dose is matched to clinical indication); or iterative reconstruction. COMPARISON: CT abdomen pelvis w con* [id number] 06/18/2023 12:43 PM RADIATION DOSE METRICS: Total DLP (mGy-cm): 411.94 FINDINGS: Lungs: There is redemonstration of subpleural areas of interstitial reticulation lower low postinflammatory related scarring or fibrosis could be considered no significant pleural effusions. Coronary arteries: No significant coronary artery calcifications present Liver: Unremarkable. No mass. Gallbladder and biliary ducts: Unremarkable. No calcified stones. No ductal dilation. Pancreas: Unremarkable. No ductal dilation. Spleen: Unremarkable. No splenomegaly. Adrenal glands: Normal. No mass. Kidneys and ureters: Unremarkable. No hydronephrosis. Stomach and bowel: See Soft tissues finding. Appendix: Appendix normal Intraperitoneal space: Unremarkable. No free air. No significant fluid collection. Vasculature: There is stable infrarenal abdominal aortic dilation to 2.3 x 2.5 cm Lymph nodes: Unremarkable. No enlarged lymph nodes. Urinary bladder: Urinary bladder is distended without nodularity Reproductive: Unremarkable as visualized. Bones/joints: Unremarkable. No acute fracture. Soft tissues: There is demonstration of an umbilical hernia containing small bowel duct appears thickened and edematous. There is a small bowel obstruction pattern leading into the hernia. Incarcerated umbilical hernia suspected, vascular compromise of the bowel small bowel can not be excluded. Further workup to include surgical evaluation recommended. There is a fat containing right inguinal hernia present. CT/CT abdomen pelvis wo con [id number] IMPRESSION: Findings of incarcerated umbilical hernia containing small bowel there appears thickened edematous with findings of partial small bowel obstruction. Vascular compromise within both small bowel can not be excluded consider further workup to include surgical evaluation. Normal appendix Stable dilation of the infrarenal aorta as above noted for follow-up guidelines see below statement: Follow-up imaging in 5 years is recommended. COMMENT: THIS REPORT CONTAINS FINDINGS THAT MAY BE CRITICAL TO PATIENT CARE. The exam findings were verbally communicated by me to BROOKE NUNES via telephone conference at 7:23 PM [address] CHAUFF[employer] on 05/29/2025. The findings were acknowledged and understood.
--- NOTE | 2025-05-29 18:24 | ECG_ITS ---
[facility]: 2025-05-29 Pat Name: Pasha Cobb Department: Room: Gender: Male Trust Operations Assistant: : 1945 Requested By: Katerina James Order Number: [id number] Manzanares MD: Ken Diza M.D. Measurements Intervals [place] Rate: 100 P: 0 ID: 0 QRS: -21 QRSD: 93 T: 41 QT: 351 QTc: 455 Interpretive Statements ATRIAL FIBRILLATION WITH RAPID VENTRICULAR RESPONSE BORDERLINE LEFT AXIS DEVIATION [QRS AXIS < -20] LOW QRS VOLTAGE IN PRECORDIAL LEADS [QRS DEFLECTION < 1.0 mV IN CHEST LEADS] ABNORMAL RHYTHM ECG Compared to ECG 09/29/2023 23:29:11 Sinus tachycardia no longer present Electronically Signed On 05-29-2025 23:37:52 FLYING SQUAD WORKER by Ken Diaz M.D. [email or web address]
[2025-05-29 18:28] LABS: Hematocrit 39.1 % (37-53); Hemoglobin 13.80 g/dL (11.27-16.99); Mean Corpuscular HGB Conc 35.3 g/dL (30-55); Mean Corpuscular Hemoglobin 32.2 pg (27-33); Mean Corpuscular Volume 91.4 fl (82-101); Nucleated Red Blood Cells % 0 %; Platelet Count 155 10^3/cmm (157-399); Red Blood Count 4.28 10^6/uL (3.85-5.65); White Blood Count 8.53 10^3/uL (3.29-11.43)
--- OUTSIDE RECORDS SUMMARY | 2025-05-29 18:34 | XMS_ITS | Patient Health Record ---
Author Organization [facility] Address [address] [place] [address] Care Team Providers Care Citrix Consultant Name Role Phone [facility] Unavailable Gastroenterology, [facility] Unavailable [phone] [place], [place] Unavailable Unavailable Riccardo Lafleur Unavailable [phone] Mi Mcpherson Unavailable [phone] Allergies Allergen (clinical drug ingredient) Drug/Non Drug Allergy documented on EMR Reaction Allergy Type Onset Date Status varicella zoster virus glycoprotein E Shingrix weakness Drug Allergy Active flunisolide Flunisolide Unknown Drug Allergy Act thais gemfibrozil Gemfibrozil Unknown Drug Allergy Act thais metformin Metformin Unknown Drug Allergy Active methotrexate Methotrexate coughing Drug Allergy A ctive oxycodone Oxycodone Unknown Drug Allergy Active Penicillin Unknown Drug Allergy Active pregabalin Pregabalin urticaria Drug Allergy Activ e rofecoxib Rofecoxib Unknown Drug Allergy Active Reason For Referral Reason 6mo F/U-Hepatic Stea tosis AL Cxed Auth..pl Diagnosis 1 Hepatic steatosis (K 76.0) Referring Provider First Name Sapphire Roscoe ff Referring Provider Last Name [place] Referring Provider [facility]ity [facility] Referred Organization [facility] Referred Provider Gastroenterology, [facility] Referred Address [address] [place],[address], Referral Priority Routine Medications Medication SIG (Take, Route, Frequency, Duration) Notes Start Date End Date Status Losartan Potassium 50 MG Tablet 1 tablet Orally twice a day Active Apixaban 5 MG Tablet 1 tablet Orally Twi ce a day Active Albuterol Sulfate 108 (90 Base) MCG/ACT Aerosol Powder Breath Activated 1 puff as needed Inhalation every 6 hrs Active Tofacitinib Citrate 5 MG Tablet 1 tablet Orally Twice a day Active Clobetasol Propionate 0.05 % Cream 1 application Externally Once a day Active Fluticasone Propionate 50 MCG/ACT Suspension 1 application Externally Once a day Active Sertraline HCl 100 MG Tablet 1 tablet Or ally Once a day Active Rosuvastatin Calcium 40 MG Tablet 1 tablet Orally Once a day Active traZODone HCl 100 MG Tablet 1 tablet at bedtime Orally Once a day Active Mometasone Furoate 0.1 % Solution 1 application Externally Once a day Active CoQ10 200 MG Capsule 1 capsule Orally daily Active Multi Vitamin - Tablet 1 tablet Orally O nce a day Active Semaglutide (1 MG/DOSE) 4 MG/3ML Solution Pen-injector 1 mg Subcutaneous weekly Active Krill Oil 500 MG Capsule 1 capsule Orally daily Active Prostate Complete - Capsule 1 capsule Orally daily Active Montelukast Sodium 10 MG Tablet 1 tablet Orally Once a day Active Insulin Glargine 100 UNIT/ML Solution 80 units Subcutaneous daily Active amLODIPine Besylate 5 MG Tablet 1 tablet Orally Once a day Active Gabapentin 300 MG Capsule 1 capsule Oral ly three a day Active Aspirin 81 MG Tablet Delayed Release 1 tablet Orally every 6 hrs Active Ketoconazole 2 % Cream 1 application Ext ernally Once a day Active Cholecalciferol 50 MCG (1999 [place]) Tablet 1 tablet Orally Once a day Active Cetirizine HCl 10 MG Tablet 1 tablet Ora lly Once a day Active Lidocaine 5 % Ointment 1 application as needed Externally twice daily Active Risankizumab-rzaa 150 MG/ML Solution Prefilled Syringe 1 mL Subcutaneous Active Mirtazapine 30 MG Tablet 1 tablet at bed time Orally Once a day Active Metoprolol Succinate 100 MG Capsule ER 24 Hour Sprinkle 1/2 capsule Orally Once a day Active Social History Tobacco Use: Social History Observation Description Date Details (start date - stop date) Former Smoker NA - NA Social History Drugs/Alcohol: Social Info Question Answer Notes Alcohol Screen (Audit-C) Did you have a drink containing alcohol in the past year? No Points 0 Interpretation Negative Tobacco Use: Social Info Question Answer Notes xTobacco Use/Smoking Are you a former smoker How long has it been since you last smoked? > 10 years Problems Problem Type SNOMED Code ICD Code Onset Dates Problem Status W/U Status Risk Notes Problem Hyperglycemia due to type 2 diabetes mellitus (930176708045899) Type 2 diabetes mellitus with hyperglycemia (E11.65) Active confirmed Problem Type 2 diabetes mellitus with other specified complication (E11.69) Active confirmed Problem Cirrhosis of liver (29314790) Other cirrhosis of liver (K74.69) Active confirmed Problem Long-term current use of insulin (536385397) ad terminal makeup operator (current) use of insulin (Z79.4) Active confirmed Problem Hyperlipidemia (04687265) Other hyperlipidemia (E78.49) Active confirmed Problem Fatty liver () NAFLD (nonalcoholic fatty liver disease) (K76.0) Active confirmed Problem Hyperlipidaemia (68266868) Hyperlipidemia, unspecified hyperlipidemia type (E78.5) Active confirmed Problem Steatosis of liver () Hepatic steatosis (K76.0) Active confirmed Problem Cirrhosis of liver not due to alcohol (341051753) 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) Active confirmed Problem Fatty liver () Fatty liver (K76.0) Active confirmed Problem Fatty liver () Steatosis, liver (K76.0) Active confirmed Problem Cirrhosis - non-alcoholic (363329590) Hepatic cirrhosis, unspecified hepatic cirrhosis type, unspecified whether ascites present (K74.60) Active confirmed Problem Stage 3 hepatic fibrosis (disorder) (62997145155620039 ) Hepatic fibrosis, advanced fibrosis (K74.02) Active confirmed Problem Hepatic fibrosis (disorder) (86963717) Early hepatic fibrosis (K74.01) Active confirmed Encounters Encounter Location Date Provider Diagnosis [facility] [address] [place] [address] 12/20/2024 [facility] Gastroenterology [facility] [address] [place] [address] 11/14/2024 [facility] Plan Of Treatment No Information Insurance Providers Payer Name Payer Address Payer Phone Subscriber Number Group Number Insured Name Patient Relationship to Insured Coverage Start Date Coverage End Date [employer] [address] [place] [phone] [id number] Pasha Cobb Self - patient is the insured Medical (General) History Medical History History ICD Code Pneumonia Heart Disease Arthritis diabetes mellitus Hypertension COPD depression fatty liver Atrial Fibrillation Surgical History Surgery Date(Month/Year) Cholecystectomy 1970 Coronary angiogram 1988 Mastoidectomy left ear 1996 Scrotal cyst excision 2001 Left ankle and Tib Fib ORIF 2014 Bilateral carpel tunnel release 2017 Hospitalization History Reason Date(Month/Year) heart problems
[2025-05-29 18:49] LABS: Lactic Sepsis W/Reflex 1.7 mmol/L (0.5-2.2)
[2025-05-29 18:51] LABS: Troponin(5th) Baseline 34 ng/L (0-15)
[2025-05-29 19:01] LABS: Alanine Aminotransferase 13 U/L (0-41); Albumin Level 4.6 g/dL (3.5-5.2); Alkaline Phosphatase 89 U/L (40-130); Anion Gap 17.9 (5-19); Aspartate Amino Transferase 21 U/L (0-40); Blood Urea Nitrogen 14 mg/dL (8-23); Calcium 9.7 mg/dL (8.5-10.5); Carbon Dioxide 26 mmol/L (22-29); Chloride 100 mmol/L (98-107); Globulin 2.4 g/dL (1.3-4.6); Glucose 124 mg/dL (65-115); NT Pro B Type Natriuretic Pept 948 pg/mL (0-450); Osmolality Calculated 292 mOsm/kg (285-295); Potassium 3.9 mmol/L (3.5-5.1); Sodium 140 mmol/L (136-145); Total Protein 7.0 g/dL (6.6-8.7)
--- NOTE | 2025-05-29 19:36 | PM.CONSULT ---
Providers/Reason For Consult Consulting Physician/Specialty*: Dr. Martinez general surgery Reason for Consult*: Umbilical hernia Primary Care Provider: DIMAS Arvizu History of Present Illness History of Present Illness Pasha Cobb is a 80 year old male who presented with an incarcerated umbilical hernia. Hernia was reduced in the ED. Abdomen is benign. Medications/Allergies Home Medications ?Medication ?Instructions ?Recorded ?Confirmed ?Last Taken ?Type albuterol sulfate 90 mcg/actuation 2 puff inhalation Q6H PRN 08/27/19 03/27/25 Unknown History aerosol inhaler (ProAir HFA) Shortness Of Breath metoprolol succinate 25 mg capsule 37.5 mg PO DAILY 08/27/19 03/27/25 06/18/23 History sprinkle, ext. release 24 hr apixaban 5 mg tablet 5 mg PO BID 04/09/21 03/27/25 06/18/23 History gabapentin 300 mg capsule 600 mg PO BID 04/28/21 03/27/25 06/18/23 History coenzyme Q10 75 mg capsule (Ultra 75 mg PO DAILY 10/15/21 03/27/25 06/18/23 History CoQ10) multivitamin 1 tab PO DAILY 10/15/21 03/27/25 06/18/23 History Super Beta Prostate 1 cap PO DAILY 06/18/23 03/27/25 06/18/23 History fluticasone 250 mcg-salmeterol 50 1 inh inhalation BID PRN Shortness 06/18/23 03/27/25 Unknown History mcg/dose blistr powdr for Of Breath inhalation (Wixela Inhub) krill oil 500 mg capsule 500 mg PO DAILY 06/18/23 03/27/25 06/18/23 History blood-glucose sensor (Dexcom G7 #9 ea 09/24/24 05/30/25 Unknown Rx Sensor device) losartan 50 mg tablet 25 mg (1/2 x 50 mg) PO ONCE #90 10/18/24 03/27/25 Unknown Rx tabs semaglutide 1 mg/dose (4 mg/3 mL) See Rx Instructions .Route 04/25/25 Unknown Rx subcutaneous pen injector (Ozempic) .COMPLEX #3 mL prednisolone acetate 1 % eye drp 05/30/25 Unknown History drops,suspension Allergies Allergy/AdvReac Type Severity Reaction Status Date / Time flunisolide Allergy Unknown Verified 01/21/25 13:48 gemfibrozil Allergy Unknown Verified 01/21/25 13:48 metformin Allergy unknown Verified 01/21/25 13:48 Penicillins Allergy ALGY-Rash Verified 01/21/25 13:48 pregabalin Allergy unknown Verified 01/21/25 13:48 rofecoxib Allergy Unknown Verified 01/21/25 13:48 methotrexate AdvReac Mild ADR-Cough Verified 01/21/25 13:48 oxycodone AdvReac Mild ADR-Gastrointestinal Verified 01/21/25 13:48 Upset PFSH Acute PFSH: Medical History (Updated 05/29/25 @ 20:33 by Katerina Finn MD) Plaque psoriasis Seropositive rheumatoid arthritis of multiple sites Psoriasis Acute carpal tunnel syndrome of right wrist Acute carpal tunnel syndrome of left wrist History of [place] spotted fever High risk medication use Immunization counseling Acute joint pain Acute back pain with sciatica Encounter for long-term opiate analgesic use Diabetes mellitus Hyperlipidemia Post-traumatic arthritis of left ankle Venous stasis Thoracic outlet syndrome PVD (peripheral vascular disease) Other instability, left ankle Acquired hammer toe Surgical History (Updated 01/21/25 @ 14:22 by TREY Armstrong) History of ear surgery right ear cyst removal History of cholecystectomy History of angioplasty Family History Other CAD (coronary artery disease) Cancer Diabetes Hyperlipidemia Hypertension Denies family history of Rheumatoid arthritis Lupus Social History Smoking and tobacco/nicotine status: former use of tobacco/nicotine Quit status (tobacco/nicotine): has quit using Year quit tobacco: 1989 Former quit date comment: 1 ppd x 30 years Second hand smoke exposure: No Alcohol intake: never Substance/Drug Use: never Vitals/I&O/Wt Last Vital Signs Temp 98.4 F 05/29/25 18:04 Pulse 103 H 05/29/25 18:04 Resp 17 05/29/25 18:04 BP 108/73 05/29/25 18:04 Pulse Ox 100 05/29/25 18:04 O2 Del Method Room Air 05/29/25 18:04 Physical Exam Narrative: Chest: Unlabored breathing room air. No lymphadenopathy. Heart: Regular rate and rhythm. Abdomen: Soft, nontender, nondistended. Umbilical hernia reduced in ED. Data 05/30/25 06:12 05/30/25 06:12 Micro: Microbiology 05/29/25 18:09 Blood Culture - Preliminary Blood SPECIMEN COLLECTED 05/29/25 18:07 Blood Culture - Preliminary Blood SPECIMEN COLLECTED A&P Assessment and plan 1. Syncope: 2. Small bowel obstruction: 3. Incarcerated umbilical hernia: 4. Atrial fibrillation: 5. Hypertension: 6. Lumbar radiculopathy, acute: 7. Back pain: 8. Thigh pain: 9. Hyperlipemia, mixed: 10. Osteoporosis: 11. Osteoporosis: 12. Plaque psoriasis: Plan: 80-year-old male who presented with an incarcerated umbilical hernia. Emergency department provider reduced the hernia. Will stay overnight for serial abdominal exams. If pain-free and tolerating a diet he may be discharged tomorrow. He may follow-up in my office for elective umbilical hernia repair. PDMP PDMP Reviewed: Not Reviewed Coding Level of Care Code 67522 Diagnoses Syncope R55 Small bowel obstruction K56.609 Incarcerated umbilical hernia K42.0 Atrial fibrillation I48.91 Hypertension I10 Lumbar radiculopathy, acute M54.16 Back pain M54.9 Thigh pain M79.659 Hyperlipemia, mixed E78.2 Osteoporosis M81.0 Plaque psoriasis L40.0
--- NOTE | 2025-05-29 19:36 | PM.MISC ---
Miscellaneous Note Note: Full consult note to follow. Umbilical hernia reduced in ED. Will plan for medicine admission. Serial physical exams. Trend labs. Ok for diet. If pain free 05/30 can plan for PM discharge and elective hernia repair.
--- NOTE | 2025-05-29 19:46 | ECG_ITS ---
[facility] Date: 2025-05-29 Pat Name: Pasha Cobb Department: Room: Gender: Male [employer] Vertical: : 1945 Requested By: Katerina James Order Number: [id number] Glenna MD: Ken Diaz M.D. Measurements Intervals [place] Rate: 89 P: 0 TN: 0 QRS: -24 QRSD: 94 T: 30 QT: 365 QTc: 444 Interpretive Statements ATRIAL FIBRILLATION BORDERLINE LEFT AXIS DEVIATION [QRS AXIS < -20] LOW QRS VOLTAGE IN PRECORDIAL LEADS [QRS DEFLECTION < 1.0 mV IN CHEST LEADS] ABNORMAL RHYTHM ECG Compared to ECG 05/29/2025 18:24:11 No significant changes Electronically Signed On 05-29-2025 23:47:48 REGROOVER by Ken Diaz M.D. [email or web address]
[2025-05-29 20:29] LABS: Glucose Urine UA Negative (Normal); Nitrate Urine Negative (Negative); Specific Gravity, Urine 1.007 (1.005-1.030)
[2025-05-29 20:38] LABS: Troponin 5 2HR 28.49 ng/L (0-15)
[2025-05-29 20:40] VITALS: BP 141/103; PULSE 109; RESP 16; O2SAT 96
[2025-05-29 20:40] LABS: Troponin 5 2HR Delta -5.51 ABS# (0-10)
--- NOTE | 2025-05-29 21:57 | USCV_ITS ---
Pasha Cobb Age: 80 Gender: M : 1945 Exam Date: 05/29/2025 22:38 Ordering Phys: Thomas Ewing MD Technologist: BARRY Exam Location: [facility] – [place] Indication: h/o syncope and dizziness Risk Factors: h/o syncope and dizziness Previous Vascular Surgery: unknown Right Brachial BP: 147 / 68 Left Brachial BP: / Right Left Velocity (cm/s) Spectral Plaque Velocity (cm/s) Spectral Plaque Syst/Diast Broadening Syst/Diast Broadening 60.80/ 18.00 Min Hetro Prox CCA 70.50 / 14.00 Min Hetro 67.20/ 15.40 Min Hetro Mid CCA 66.70 / 15.30 Min Hetro 47.80/ 16.70 Min Hetro Distal CCA 42.30 / 7.60 Min Hetro 50.40/ 18.00 Min Hetro Prox ICA 51.10 / 18.00 Min Drew 59.50/ 24.50 Min Hetro Mid ICA 62.90 / 24.40 Min Hetro 81.20/ 24.10 None Homo Distal ICA 65.70 / 22.20 Min Hetro 69.80 Min Drew ECA 31.90 Min Homo 1.70 ICA/CCA 1.60 Antegrade Vertebral Antegrade 40.00/ 11.50 cm/s 38.40/ 12.70 cm/s Bi Subclavian Tri 78.30 82.10 CONCLUSIONS Right ICA stenosis <50%. Mild to moderate atheromatous plaque right carotid bulb/ICA. Left ICA stenosis <50%. Mild to moderate atheromatous plaque left carotid bulb/ICA. Normal antegrade Doppler flow noted in the right vertebral artery. Normal antegrade Doppler flow noted in the left vertebral artery. Mike Smith MD (Electronically Signed) Final Date: 31 May 2025 14:27 S
--- NOTE | 2025-05-29 21:57 | USCV_ITS ---
Pasha Cobb Age: 80 Gender: M : 1945 Exam Date: 05/29/2025 23:04 Ordering Phys: Thomas Ewing MD Technologist: BARRY Exam Location: [facility] [place] Indication: h/o syncope and dizziness BP: 147 / 68 HR: 82 Rhythm: Sinus Technical Quality: Adequate MEASUREMENTS (Male / Female) Normal Values 2D ECHO LV Diastolic Diameter PLAX 3.5 cm 4.2 - 5.9 / 3.9 - 5.3 cm IVS Diastolic Thickness 1.3 cm 0.6 - 1.0 / 0.6 - 0.9 cm IVS Systolic Thickness 1.7 cm LVPW Diastolic Thickness 1.3 cm 0.6 - 1.0 / 0.6 - 0.9 cm LVPW Systolic Thickness 2.0 cm LVOT Diameter 1.9 cm LV Ejection Fraction 2D Teich 58.3 % LV Ejection Fraction MOD 4C 64.5 % LV Ejection Fraction MOD 2C 69.5 % LV Ejection Fraction 2C AL 70.7 % LA Diameter 4.0 cm Aorta at Sinotubular Diameter 2.7 cm IVC Diameter 1.7 cm M-MODE LA Ao Ratio MM 1.2 AV Cusp Separation MM 2.0 cm DOPPLER AV Peak Velocity 74.0 cm/s LVOT Peak Velocity 48.0 cm/s AV Area Cont Eq vti 2.0 cm squared AV Area Cont Eq pk 1.9 cm squared MV Peak Velocity 104.0 cm/s MV Area PHT 4.6 cm squared Mitral E to A Ratio 639.0 TV Peak E Velocity 44.0 cm/s PV Peak Velocity 82.0 cm/s FINDINGS Left Ventricle Normal left ventricular size, systolic function and wall thickness, with no regional wall motion abnormalities. Left ventricular ejection fraction is estimated at 60 %. In the presence of atrial fibrillation diastolic function cannot be assessed accurately. Right Ventricle Normal right ventricular size and systolic function. Right Atrium Normal right atrial size. Left Atrium Moderately increased left atrial size. IA Septum Normal appearance of the interatrial septum. Mitral Valve Moderately thickened mitral valve. No mitral valve stenosis. Trace mitral valve regurgitation. Aortic Valve Moderate aortic valve calcification. No aortic valve stenosis. Trace aortic valve regurgitation. Tricuspid Valve Mild tricuspid valve regurgitation. Pulmonic Valve Trace pulmonary valve regurgitation. Pericardium No pericardial effusion. Aorta Normal diameter of the aortic root and ascending thoracic aorta. IVC Normal IVC diameter. CONCLUSIONS Normal left ventricular size, systolic function and wall thickness, with no regional wall motion abnormalities. Left ventricular ejection fraction is estimated at 60 %. In the presence of atrial fibrillation diastolic function cannot be assessed accurately. Moderately increased left atrial size. No significant valve abnormalities. There is no pericardial effusion. Right atrial pressure is around 5 mm of mercury. Rae Bradford MD (Electronically Signed) Final Date: 30 May 2025 20:49 S
--- NOTE | 2025-05-29 21:58 | CTR_ITS ---
PROCEDURE INFORMATION: Exam: CT Head Without Contrast Exam date and time: 05/29/2025 10:06 PM Age: 80 years old Clinical indication: Syncope and collapse; Additional info: H/o syncope and dizziness TECHNIQUE: Imaging protocol: Computed tomography of the head without contrast. Radiation optimization: All CT scans at this facility use at least one of these dose optimization techniques: automated exposure control; mA and/or kV adjustment per patient size (includes targeted exams where dose is matched to clinical indication); or iterative reconstruction. COMPARISON: CT neck w con* [id number] 10/16/2020 10:56 AM RADIATION DOSE METRICS: Total DLP (mGy-cm): 1152.58 FINDINGS: Brain: No acute intra-axial hemorrhage. No masses. Normal rasmussen-white matter differentiation. No midline shift or mass effect. Mild patchy hypodensity in hemispheric white matter bilaterally most likely due to chronic microangiopathy. There is mild diffuse cerebral atrophy present, consistent with this patient's age. Cerebral ventricles: No ventriculomegaly. Paranasal sinuses: Visualized sinuses are unremarkable. No fluid levels. Mastoid air cells: Visualized mastoid air cells are well aerated. Bones: Unremarkable. No acute fracture. Soft tissues: Unremarkable. CT/CT head wo con* [id number] IMPRESSION: No acute intracranial abnormality.
--- NOTE | 2025-05-29 22:02 | PM.HP ---
Providers/Chief Complaint Admitting Physician: Thomas Ewing MD Primary Care Provider: DIMAS Arvizu Chief Complaint: syncope History of Present Illness History as per the previous retrospective notes and the patient/family: Pasha Cobb is a 80 year old male with past medical history of hypertension, [place] in ? But no history of PCI/cardiac stenting, controlled diabetes mellitus, atrial fibrillation on chronic anticoagulation came after having dizziness and presyncope/syncope when he was at home with some friends. He was about to pass out but he was aware about his surroundings. He has been noticing this dizziness ongoing for a while. And after that he also threw up his breakfast. There was no history of nausea vomiting or diarrhea in the past. The patient is regularly following with his primary care physician. No history of recent leg swellings, orthopnea or PND. He is compliant to his medications No other drug abuse, alcohol and patient is a ex-smoker. Review of Systems General: Reports: 10 or more systems reviewed and unremarkable except in HPI and below Medications/Allergies Home Medications ?Medication ?Instructions ?Recorded ?Confirmed ?Last Taken ?Type albuterol sulfate 90 mcg/actuation 2 puff inhalation Q6H PRN 08/27/19 03/27/25 Unknown History aerosol inhaler (ProAir HFA) Shortness Of Breath metoprolol succinate 25 mg capsule 37.5 mg PO DAILY 08/27/19 03/27/25 06/18/23 History sprinkle, ext. release 24 hr apixaban 5 mg tablet 5 mg PO BID 04/09/21 03/27/25 06/18/23 History gabapentin 300 mg capsule 600 mg PO BID 04/28/21 03/27/25 06/18/23 History coenzyme Q10 75 mg capsule (Ultra 75 mg PO DAILY 10/15/21 03/27/25 06/18/23 History CoQ10) multivitamin 1 tab PO DAILY 10/15/21 03/27/25 06/18/23 History Super Beta Prostate 1 cap PO DAILY 06/18/23 03/27/25 06/18/23 History fluticasone 250 mcg-salmeterol 50 1 inh inhalation BID PRN Shortness 06/18/23 03/27/25 Unknown History mcg/dose blistr powdr for Of Breath inhalation (Wixela Inhub) krill oil 500 mg capsule 500 mg PO DAILY 06/18/23 03/27/25 06/18/23 History blood-glucose sensor (Dexcom G7 #9 ea 09/24/24 03/27/25 Unknown Rx Sensor device) losartan 50 mg tablet 25 mg (1/2 x 50 mg) PO ONCE #90 10/18/24 03/27/25 Unknown Rx tabs semaglutide 1 mg/dose (4 mg/3 mL) See Rx Instructions .Route 04/25/25 Unknown Rx subcutaneous pen injector (Ozempic) .COMPLEX #3 mL Allergies Allergy/AdvReac Type Severity Reaction Status Date / Time flunisolide Allergy Unknown Verified 01/21/25 13:48 gemfibrozil Allergy Unknown Verified 01/21/25 13:48 metformin Allergy unknown Verified 01/21/25 13:48 Penicillins Allergy ALGY-Rash Verified 01/21/25 13:48 pregabalin Allergy unknown Verified 01/21/25 13:48 rofecoxib Allergy Unknown Verified 01/21/25 13:48 methotrexate AdvReac Mild ADR-Cough Verified 01/21/25 13:48 oxycodone AdvReac Mild ADR-Gastrointestinal Verified 01/21/25 13:48 Upset PFSH Acute PFSH: Medical History (Updated 05/29/25 @ 20:33 by Katerina Finn MD) Plaque psoriasis Seropositive rheumatoid arthritis of multiple sites Psoriasis Acute carpal tunnel syndrome of right wrist Acute carpal tunnel syndrome of left wrist History of [place] spotted fever High risk medication use Immunization counseling Acute joint pain Acute back pain with sciatica Encounter for long-term opiate analgesic use Diabetes mellitus Hyperlipidemia Post-traumatic arthritis of left ankle Venous stasis Thoracic outlet syndrome PVD (peripheral vascular disease) Other instability, left ankle Acquired hammer toe Surgical History (Updated 01/21/25 @ 14:22 by TREY Armstrong) History of ear surgery right ear cyst removal History of cholecystectomy History of angioplasty Family History Other CAD (coronary artery disease) Cancer Diabetes Hyperlipidemia Hypertension Denies family history of Rheumatoid arthritis Lupus Social History Smoking and tobacco/nicotine status: former use of tobacco/nicotine Quit status (tobacco/nicotine): has quit using Year quit tobacco: 1989 Former quit date comment: 1 ppd x 30 years Second hand smoke exposure: No Alcohol intake: never Substance/Drug Use: never Vitals/I&O/Wt Last Vital Signs Temp 98.4 F 05/29/25 18:04 Pulse 109 H 05/29/25 20:40 Resp 16 05/29/25 20:40 BP 141/103 05/29/25 20:40 Pulse Ox 96 05/29/25 20:40 O2 Del Method Room Air 05/29/25 18:04 Physical Exam Narrative: General: Alert and oriented, lying comfortably without any distress HEENT: Normocephalic, atraumatic, grossly unremarkable exam Cardio: normal rate rhythm, normal S1-S2 without any murmurs, rubs, or gallops and JVD normal Respiratory: normal vascular breathing on auscultation without any wheezes, stridor, rhonchi GI: Abdomen soft, nontender, nondistended, normoactive bowel sounds present all 4 quadrants, hernias palpable at the right lower inguinal region which is reducible. Neuro: intact cranial nerves motor and sensory and cerebellar/coordination function without any focal neurological deficit Behavior: Appropriate and cooperative Extremities: Adequate palpable pulses, no edema or cyanosis observed Skin: grossly unremarkable exam Data 05/29/25 18:07 05/29/25 18:07 Micro: Microbiology 05/29/25 18:09 Blood Culture - Preliminary Blood SPECIMEN COLLECTED 05/29/25 18:07 Blood Culture - Preliminary Blood SPECIMEN COLLECTED A&P Assessment and plan 1. Syncope: Syncope workup, CT head was unremarkable for any acute stroke Echo and carotid Doppler OT PT evaluation Continue home medications for atrial fibrillation with apixaban and metoprolol 37.5 mg daily Telemetry monitoring TSH Patient is on gabapentin, 600 twice daily, patient medication held since it can also lead to dizziness, after reconciliation consider resuming at lower dose since patient has diabetic neuropathy Serial EKGs [place] was not significantly raised or concerning, Monitor hemodynamics 2. Small bowel obstruction: Patient seen by the surgeon,For umbilical hernia, Umbilical hernia is reduced, no abdominal distention or tenderness at the moment Patient to be medically managed Ciprofloxacin and metronidazole Monitor intake and output Continue on diet as per the surgeon plan, started on GI soft diet If no further pain as per the surgeons for tomorrow evening discharge and for elective repair as outpatient Since patient has atrial fibrillation, if abdominal pain started to increase or get worse consider CT abdomen pelvis with contrast to rule out any bowel ischemia secondary to atrial fibrillation? 3. Atrial fibrillation: Telemetry monitoring Continued apixaban 5 mg twice daily Metoprolol 37.5 mg daily, patient given an extra dose of metoprolol 25 mg once since patient medications were not reconciled and his heart rate was around 120s with normal blood pressure Continue to monitor with serial EKGs since the patient had syncope And consider outpatient 30-day event monitor with cardiology referral 4. Hypertension: Continue home dose losartan after confirmation and reconciliation 5. Lumbar radiculopathy, acute: Adequate analgesia to be provided 6. Hyperlipemia, mixed: Patient home medication did not include statins To confirm and to follow as outpatient with PCP 7. Psoriasis: Currently stable no active eruptive skin lesions found on examination 8. Diabetes mellitus: HbA1c recent was controlled Continue glucose monitoring and insulin sliding scale as needed 9. Chronic venous insufficiency of lower extremity: Continue to monitor, currently stable Leg elevation and compression stocking Primary care physician follow-up at the time of discharge PDMP PDMP Reviewed: Not Reviewed Attestations Medical Necessity Statement*: Patient will stay more than 2 midnights for the management of his small bowel obstruction and also syncope workup Time Spent in Patient Care: 16 - 35 minutes (>than 50% of time spent in counselling and/or direct pt care on unit). Other Attestations: Patient condition has been discussed at length with the patient/family, I have independently reviewed the chart labs imaging/diagnostics/EKG. the goals of care and code status with the patient/family/NOK/legal ict sales representative, and documented accordingly. The management has been done according to the current clinical condition with respect to patient goals of care and based on recommendations/guidelines. The patient/family has been informed about the current condition and further plan of care. Agreed with the plan of care and understood without any language barrier. Every effort was made to ensure accuracy of justice court deputy clerk. Any obvious errors or omissions should be clarified with the author of the document. Coding Level of Care Code 60045 Diagnoses Syncope R55 Small bowel obstruction K56.609 Atrial fibrillation I48.91 Hypertension I10 Lumbar radiculopathy, acute M54.16 Hyperlipemia, mixed E78.2 Psoriasis L40.9 Diabetes mellitus E11.9 Chronic venous insufficiency of lower extremity I87.2
[2025-05-29 22:30] VITALS: BP 144/84; PULSE 104; RESP 19; O2SAT 96
--- NOTE | 2025-05-29 23:22 | W.ED.GENADLT ---
HPI - General Adult General: Chief complaint: Syncope Stated complaint: syncope Time Seen by Provider: 05/29/25 18:07 History of Present Illness: 80yo M w/cc of Related Data Home Medications ?Medication ?Instructions ?Recorded ?Confirmed albuterol sulfate 90 mcg/actuation 2 puff inhalation Q6H PRN 08/27/19 03/27/25 aerosol inhaler (ProAir HFA) Shortness Of Breath metoprolol succinate 25 mg capsule 37.5 mg PO DAILY 08/27/19 03/27/25 sprinkle, ext. release 24 hr apixaban 5 mg tablet 5 mg PO BID 04/09/21 03/27/25 gabapentin 300 mg capsule 600 mg PO BID 04/28/21 03/27/25 coenzyme Q10 75 mg capsule (Ultra 75 mg PO DAILY 10/15/21 03/27/25 CoQ10) multivitamin 1 tab PO DAILY 10/15/21 03/27/25 Super Beta Prostate 1 cap PO DAILY 06/18/23 03/27/25 fluticasone 250 mcg-salmeterol 50 1 inh inhalation BID PRN Shortness 06/18/23 03/27/25 mcg/dose blistr powdr for Of Breath inhalation (Wixela Inhub) krill oil 500 mg capsule 500 mg PO DAILY 06/18/23 03/27/25 Previous Rx's ?Medication ?Instructions ?Recorded blood-glucose sensor (Advise Only G7 #9 ea 09/24/24 Sensor device) losartan 50 mg tablet 25 mg (1/2 x 50 mg) PO ONCE #90 10/18/24 tabs semaglutide 1 mg/dose (4 mg/3 mL) See Rx Instructions .Route 04/25/25 subcutaneous pen injector (Ozempic) .COMPLEX #3 mL Allergies Allergy/AdvReac Type Severity Reaction Status Date / Time flunisolide Allergy Unknown Verified 01/21/25 13:48 gemfibrozil Allergy Unknown Verified 01/21/25 13:48 metformin Allergy unknown Verified 01/21/25 13:48 Penicillins Allergy ALGY-Rash Verified 01/21/25 13:48 pregabalin Allergy unknown Verified 01/21/25 13:48 rofecoxib Allergy Unknown Verified 01/21/25 13:48 methotrexate AdvReac Mild ADR-Cough Verified 01/21/25 13:48 oxycodone AdvReac Mild ADR-Gastrointestinal Verified 01/21/25 13:48 Upset PFSH ED PFSH: Medical History (Updated 05/29/25 @ 20:33 by Katerina Finn MD) Plaque psoriasis Seropositive rheumatoid arthritis of multiple sites Psoriasis Acute carpal tunnel syndrome of right wrist Acute carpal tunnel syndrome of left wrist History of [place] spotted fever High risk medication use Immunization counseling Acute joint pain Acute back pain with sciatica Encounter for long-term opiate analgesic use Diabetes mellitus Hyperlipidemia Post-traumatic arthritis of left ankle Venous stasis Thoracic outlet syndrome PVD (peripheral vascular disease) Other instability, left ankle Acquired hammer toe Surgical History (Updated 01/21/25 @ 14:22 by TREY Armstrong) History of ear surgery right ear cyst removal History of cholecystectomy History of angioplasty Family History Other CAD (coronary artery disease) Cancer Diabetes Hyperlipidemia Hypertension Denies family history of Rheumatoid arthritis Lupus Social History Smoking and tobacco/nicotine status: former use of tobacco/nicotine Quit status (tobacco/nicotine): has quit using Year quit tobacco: 1989 Former quit date comment: 1 ppd x 30 years Second hand smoke exposure: No Alcohol intake: never Substance/Drug Use: never Course Vital Signs: Vital signs: Vital Signs Temperature 98.4 F 05/29/25 18:04 Pulse Rate 104 H 05/29/25 22:30 Respiratory Rate 19 H 05/29/25 22:30 Blood Pressure 144/84 05/29/25 22:30 Pulse Oximetry 96 05/29/25 22:30 Oxygen Delivery Me thod Room Air 05/29/25 18:04 [facility] - General Adult Lab Data 05/29/25 18:07 05/29/25 18:07 Radiology Impressions Chest X-Ray 05/29/25 17:46 IMPRESSION: No acute findings. Abdomen/Pelvis CT 05/29/25 18:20 IMPRESSION: Findings of incarcerated umbilical hernia containing small bowel there appears thickened edematous with findings of partial small bowel obstruction. Vascular compromise within both small bowel can not be excluded consider further workup to include surgical evaluation. Normal appendix Stable dilation of the infrarenal aorta as above noted for follow-up guidelines see below statement: Follow-up imaging in 5 years is recommended. COMMENT: THIS REPORT CONTAINS FINDINGS THAT MAY BE CRITICAL TO PATIENT CARE. The exam findings were verbally communicated by me to KATERINA FINN via telephone conference at 7:23 PM HUMAN RESOURCES BENEFITS MANAGER on 05/29/2025. The findings were acknowledged and understood. Head CT 05/29/25 21:58 IMPRESSION: No acute intracranial abnormality. Laboratory Results WBC 8.53 10^3/uL (3.29-11.43) 05/29/25 18:07 RBC 4.28 10^6/uL (3.85-5.65) 05/29/25 18:07 Hgb 13.80 g/dL (11.27-16.99) 05/29/25 18:07 Hct 39.1 % (37-53) 05/29/25 18:07 MCV 91.4 fl (82-101) 05/29/25 18:07 MCH 32.2 pg (27-33) 05/29/25 18:07 MCHC 35.3 g/dL (30-55) 05/29/25 18:07 RDW 12.2 % (12.1-15.1) 05/29/25 18:07 Plt Count 155 10^3/cmm (157-399) L 05/29/25 18:07 MPV 9.9 fL (7.4-10.4) 05/29/25 18:07 Neut % (Auto) 71.7 % 05/29/25 18:07 Lymph % (Auto) 19.9 % 05/29/25 18:07 [place] % (Auto) 7.0 % 05/29/25 18:07 Eos % (Auto) 0.6 % 05/29/25 18:07 Baso % (Auto) 0.6 % 05/29/25 18:07 Neut # (Auto) 6.11 10^3/uL (1.8-7.7) 05/29/25 18:07 Lymph # (Auto) 1.7 10^3/uL (0.8-4.8) 05/29/25 18:07 [place] # (Auto) 0.6 10^3/uL (0.2-0.9) 05/29/25 18:07 Eos # (Auto) 0.1 10^3/uL (0.0-0.8) 05/29/25 18:07 Baso # (Auto) 0.1 10^3/uL (0.0-0.1) 05/29/25 18:07 Nucleated RBC % (auto) 0 % 05/29/25 18:07 Nucleated RBCs # 0.0 /100WBC 05/29/25 18:07 Sodium 140 mmol/L (136-145) 05/29/25 18:07 Potassium 3.9 mmol/L (3.5-5.1) 05/29/25 18:07 Chloride 100 mmol/L (98-107) 05/29/25 18:07 Carbon Dioxide 26 mmol/L (22-29) 05/29/25 18:07 Anion Gap 17.9 (5-19) 05/29/25 18:07 BUN 14 mg/dL (8-23) 05/29/25 18:07 Creatinine 0.9 mg/dL (0.7-1.2) 05/29/25 18:07 GFR Calculation Not Reportable 05/29/25 18:07 Glucose 124 mg/dL (65-115) H 05/29/25 18:07 Calculated Osmolality 292 mOsm/kg (285-295) 05/29/25 18:07 Lactic Acid 1.7 mmol/L (0.5-2.2) 05/29/25 18:07 Calcium 9.7 mg/dL (8.5-10.5) 05/29/25 18:07 Total Bilirubin 1.2 mg/dL (0.15-1.2) 05/29/25 18:07 AST 21 U/L (0-40) 05/29/25 18:07 ALT 13 U/L (0-41) 05/29/25 18:07 Alkaline Phosphatase 89 U/L (40-130) 05/29/25 18:07 Troponin T Baseline 34 ng/L (0-15) H 05/29/25 18:07 Troponin T 120 Minute 28.49 ng/L (0-15) H 05/29/25 19:53 Delta Troponin T -5.51 ABS# (0-10) L 05/29/25 19:53 NT-Pro-B Natriuret Pep 948 pg/mL (0-450) H 05/29/25 18:07 Total Protein 7.0 g/dL (6.6-8.7) 05/29/25 18:07 Albumin 4.6 g/dL (3.5-5.2) 05/29/25 18:07 Globulin 2.4 g/dL (1.3-4.6) 05/29/25 18:07 Urine Color Yellow (Yellow) 05/29/25 19:53 Urine Appearance Clear (CLEAR) 05/29/25 19:53 Urine pH 7.5 (5-7) 05/29/25 19:53 Ur Specific [place] 1.007 (1.005-1.030) 05/29/25 19:53 Urine Protein Negative (Negative) 05/29/25 19:53 Urine Glucose (UA) Negative (Normal) 05/29/25 19:53 Urine Ketones Negative (Negative) 05/29/25 19:53 Urine Blood Negative (Negative) 05/29/25 19:53 Urine Nitrate Negative (Negative) 05/29/25 19:53 Urine Bilirubin Negative (Negative) 05/29/25 19:53 Urine Urobilinogen 0.2 mg/dL (Negative) 05/29/25 19:53 Ur Leukocyte Esterase Negative (Negative) 05/29/25 19:53 Urine RBC 0-2 /hpf (0-2) 05/29/25 19:53 Urine WBC 0-5 /hpf (0-5) 05/29/25 19:53 Ur Squamous Epith Cells 0-5 /hpf (0-5) 05/29/25 19:53 Amorphous Sediment Not Reportable 05/29/25 19:53 Urine Bacteria None seen /hpf (NONE) 05/29/25 19:53 Hyaline Casts 0.40 /lpf 05/29/25 19:53 Discharge Plan Discharge Patient Disposition: Placed in Observation Admit Provider: Thomas Ewing Clinical Impression: Incarcerated umbilical hernia, Small bowel obstruction, Syncope Coding Level of Care Code ED Lead Radiologic Technologist for Joel Lane
[2025-05-29 23:33] VITALS: BP 128/79; PULSE 116; O2SAT 97
[2025-05-29 23:46] VITALS: BMI 24.3
[2025-05-30] VITALS (8 sets, daily range): BP systolic 90–119; BP diastolic 54–76; PULSE 75–99; RESP 16–18; TEMP 36.3–36.7; O2SAT 94–97
--- NOTE | 2025-05-30 00:39 | ECG_ITS ---
[facility] Date: 2025-05-30 Pat Name: Pasha Cobb Department: Room: 278 Gender: Male Human Intelligence: : 1945 Requested By: Katerina James Order Number: [id number] Reading MD: JOSE FLORES Measurements Intervals [place] Rate: 96 P: 0 SC: 0 QRS: -21 QRSD: 93 T: 22 QT: 370 QTc: 470 Interpretive Statements ATRIAL FIBRILLATION BORDERLINE LEFT AXIS DEVIATION [QRS AXIS < -20] ABNORMAL RHYTHM ECG Compared to ECG 05/29/2025 20:27:39 No significant changes Electronically Signed On 06-01-2025 16:11:34 COMPRESSOR STATIONS SUPERINTENDENT by JOSE FLORES [email or web address]
[2025-05-30] MEDS: pantoprazole 40 mg SDV IVP ×2 (01:13→22:17)
[2025-05-30] MEDS: alum-mag-hydroxide-sime 30 mL UDC 15 ML PO ×4 (01:13→22:16)
[2025-05-30] MEDS: HYDROcodone-acetaminophen 5-325 mg Tablet 1 TAB PO ×2 (01:14→05:50)
[2025-05-30] MEDS: metroNIDAZOLE IV 500 MG/100 ML PREMIX 100 MG IV ×4 (01:16→22:16)
[2025-05-30 01:25] LABS: Troponin 5 6HR 31.86 ng/L (0-15)
[2025-05-30 01:27] LABS: Troponin 5 6HR Delta -2.14 ng/L (0-12)
[2025-05-30 01:37] LABS: Magnesium 2.1 mg/dL (1.7-2.3); Thyroid Stimulating Hormone 5.11 uIU/mL (0.27-4.20)
--- OUTSIDE RECORDS SUMMARY | 2025-05-30 06:01 | XMS_ITS | Patient Health Record ---
Author Organization [facility] Address [address] [place] [address] Care Team Providers Care Associate Programmer Name Role Phone [facility] Primary Care Provid er Unavailable Gastroenterology, [facility] Unavailable [phone] [place], [place] Unavailable Unavailable Riccardo Lafleur Unavailable [phone] Mi Mcpherson Unavailable [phone] Allergies Allergen (clinical drug ingredient) Drug/Non Drug [...] For Referral Reason 6mo F/U-Hepatic Stea tosis [place] Cxed Auth..pl Diagnosis 1 Hepatic steatosis (K 76.0) Referring Provider First Name Apison Roscoe ff Referring Provider Last Name DE Ref[facility] Referred Organization [facility] Referred Provider Gastroenterology, [facility] Referred Address [address] [place],[address], Referral Priority Routine Medications Medication SIG (Take, [...] Hyperglycemia due to type 2 diabetes mellitus (693781634413348) Type 2 diabetes mellitus with hyperglycemia (E11.65) Active confirmed Problem Type 2 diabetes mellitus with other specified complication (E11.69) Active confirmed Problem Cirrhosis of liver (35810770) Other cirrhosis of liver (K74.69) Active confirmed Problem Long-term current use of insulin (071637084) joint terminal attack controller (current) use of insulin (Z79.4) Active confirmed Problem Hyperlipidemia (86763440) Other hyperlipidemia (E78.49) Active confirmed Problem Hyperlipidaemia (36609356) Hyperlipidemia, unspecified hyperlipidemia type (E78.5) Active confirmed Problem Fatty liver () Fatty liver (K76.0) Active confirmed Problem Cirrhosis - non-alcoholic (922296337) Hepatic cirrhosis, unspecified hepatic cirrhosis type, unspecified whether ascites present (K74.60) Active confirmed Problem Hepatic fibrosis (disorder) (89810286) Early hepatic fibrosis (K74.01) Active confirmed Problem Stage 3 hepatic fibrosis (disorder) (80008188313782120 ) Hepatic fibrosis, advanced fibrosis (K74.02) Active confirmed Problem Fatty liver () Steatosis, liver (K76.0) Active confirmed Problem Cirrhosis of liver not due to alcohol (131715139) 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) Active confirmed Problem Steatosis of liver () Hepatic steatosis (K76.0) Active confirmed Problem Fatty liver () NAFLD (nonalcoholic fatty liver disease) (K76.0) Active confirmed Encounters Encounter Location Date Provider Diagnosis [facility] [address] [place] [address] 12/20/2024 [facility] Gastroenterology [facility] [address] [place] [address] 11/14/2024 [facility] Plan Of Treatment No Information Insurance Providers Payer Name Payer Address Payer Phone Subscriber Number Group Number Insured Name Patient Relationship to Insured Coverage Start Date Coverage End Date [employer] [address] [place] [phone] [id number] Pasha Cobb Self - patient is the [...]
[2025-05-30 06:25] LABS: Hematocrit 41.1 % (37-53); Hemoglobin 13.80 g/dL (11.27-16.99); Mean Corpuscular HGB Conc 33.6 g/dL (30-55); Mean Corpuscular Hemoglobin 31.4 pg (27-33); Mean Corpuscular Volume 93.4 fl (82-101); Nucleated Red Blood Cells % 0 %; Platelet Count 144 10^3/cmm (157-399); Red Blood Count 4.40 10^6/uL (3.85-5.65); White Blood Count 7.29 10^3/uL (3.29-11.43)
[2025-05-30 06:44] LABS: Alanine Aminotransferase 38 U/L (0-41); Albumin Level 4.1 g/dL (3.5-5.2); Alkaline Phosphatase 101 U/L (40-130); Anion Gap 14.2 (5-19); Aspartate Amino Transferase 91 U/L (0-40); Blood Urea Nitrogen 10 mg/dL (8-23); Calcium 8.9 mg/dL (8.5-10.5); Carbon Dioxide 27 mmol/L (22-29); Chloride 103 mmol/L (98-107); Creatinine Clr Calc Pharmacy 70.6938; Globulin 2.2 g/dL (1.3-4.6); Glucose 109 mg/dL (65-115); Osmolality Calculated 290 mOsm/kg (285-295); Potassium 4.2 mmol/L (3.5-5.1); Sodium 140 mmol/L (136-145); Total Protein 6.3 g/dL (6.6-8.7)
[2025-05-30] MEDS: metoprolol succinate ER (24 HR) 25 mg Tablet 37.5 MG PO (07:32)
--- NOTE | 2025-05-30 10:11 | P.PN_ITS ---
Subjective 2 Subjective: Pain-free Tolerating regular diet Umbilical hernia reduced Vitals/I&O/Wt Last Vital Signs Temp 97.7 F 05/30/25 07:16 Pulse 92 05/30/25 07:16 Resp 16 05/30/25 07:16 BP 108/71 05/30/25 07:16 Pulse Ox 95 05/30/25 07:16 O2 Del Method Room Air 05/30/25 07:16 05/29/25 05/30/25 05/30/25 22:59 06:59 14:59 Intake Total 700 / 700 100 / 100 Output Total 200 / 200 Balance 500 / 500 100 / 100 Weight last 48 hrs Weight 151 lb Weight 151 lb Physical Exam 2 Narrative: Chest: Unlabored breathing room air. No lymphadenopathy. Heart: Regular rate and rhythm. Abdomen: Soft, nontender, nondistended. Umbilical hernia reduced Data 05/30/25 06:12 05/30/25 06:12 Micro: Microbiology 05/29/25 18:09 Blood Culture - Preliminary Blood SPECIMEN COLLECTED 05/29/25 18:07 Blood Culture - Preliminary Blood SPECIMEN COLLECTED A&P Assessment and plan 1. Incarcerated umbilical hernia: PDMP PDMP Reviewed: Not Reviewed Attestations 2 Medical Necessity Statement*: N/A Coding Level of Care Code 14341 Diagnoses Incarcerated umbilical hernia K42.0
--- NOTE | 2025-05-30 10:35 | PC.PHAR ---
SD has a long list of medications pt has not refilled in awhile. Eliquis 5mg bid-07/31/24 90ds, Gabapentin 300mg 2 bid-09/18/24 90ds, Singulair 10mg qpm-09/06/24 90ds, Sildenafil 50mg prn-09/21/24 90ds, Trazodone 50mg 1/2 tab qhs=12/20/24 90ds, Duoneb qid prn-09/18/24 90ds, asa 81mg daily-07/17/24, Guaifenesin 400mg q4h prn-08/23/24 30ds, Clobetasol propionate 0.05%Cr. Apply to arms, legs, and trunk bid, hal gaviria 06/2024. Medications were not added to pts chart because they were so old. Also spoke with [facility]-they have not filled for pt since 2022. Pt did state he takes very few prescriptions and takes several supplements.
--- NOTE | 2025-05-30 11:12 | PC.NURSE ---
Patients neighbor called and asked how patient was doing. [facility] [employer] explained that caller is not on the patient phi so telegraphic typewriter repairer is unable to discuss anything. [employer] transferred call to patient room. Neighbor called back and stated that he would be patients ride home so wanted to know when patient will discharge. [employer] talked to patient. Patient stated that we can tell neighbor that he is doing fine and should get to discharge tomorrow but staff doesn't need to go into any further detail about patient. Neighbors name is Pasha Hurst and his number is .
--- NOTE | 2025-05-30 14:08 | P.PN_ITS ---
Subjective 2 Subjective: Patient was seen this morning, currently alert and oriented x 3, following all commands no abdominal pain, passing gas has not had a bowel movement, does report dizziness, when changing position, no vertigo, no nausea, no vomiting, no chest pain, no stroke, no facial droop, no slurring words, no focal weakness Vitals/I&O/Wt Last Vital Signs Temp 97.9 F 05/30/25 11:16 Pulse 94 05/30/25 13:35 Resp 18 05/30/25 13:35 BP 90/54 05/30/25 11:16 Pulse Ox 94 05/30/25 13:35 O2 Del Method Room Air 05/30/25 13:35 05/29/25 05/30/25 05/30/25 22:59 06:59 14:59 Intake Total 700 / 700 1300 / 1300 Output Total 200 / 200 Balance 500 / 500 1300 / 1300 Weight last 48 hrs Weight 68.492 kg Weight 68.492 kg Physical Exam 2 Const: COMMON NORMALS: no acute distress and patient oriented x3 Resp: COMMON NORMALS: normal respiratory effort, No retractions, No use of accessory muscles and clear to auscultation bilaterally AUSCULTATION: clear to auscultation bilaterally Cardio: COMMON NORMALS: regular rate, regular rhythm, S1 normal heart sound present and S2 normal heart sound present RATE: regular rate RHYTHM: r egular rhythm HEART SOUNDS: S1 normal heart sound present and S2 normal heart sound present GI: COMMON NORMALS: Normal to inspection, nondistended, normoactive bowel sounds present, non-tender and no bruits OTHER: Umbilical hernia is reducible on examination, no pain, no surrounding skin changes Extremity: COMMON NORMALS: no pedal edema Neuro: COMMON NORMALS: patient oriented x3, CN's II-XII intact bilaterally, moves all extremities and no focal motor deficits Psych: COMMON NORMALS: mental status grossly normal Data 05/30/25 06:12 05/30/25 06:12 Micro: Microbiology 05/29/25 18:09 Blood Culture - Preliminary Blood SPECIMEN COLLECTED 05/29/25 18:07 Blood Culture - Preliminary Blood SPECIMEN COLLECTED A&P Assessment and plan 1. Syncope: Syncope workup Positive orthostatic vitals, IV fluids CT head was unremarkable for any acute stroke Cardiac echocardiogram Carotid artery ultrasound OT PT evaluation Telemetry monitoring 2. Small bowel obstruction: CT/CT abdomen pelvis wo con [id number] IMPRESSION: Findings of incarcerated umbilical hernia containing small bowel there appears thickened edematous with findings of partial small bowel obstruction. Vascular compromise within both small bowel can not be excluded consider further workup to include surgical evaluation. Normal appendix Stable dilation of the infrarenal aorta as above noted for follow-up guidelines see below statement: Plan Surgery onconsult Serial abdominal exams Ciprofloxacin and metronidazole Monitor intake and output Continue on diet as per the surgeon plan, started on GI soft diet 3. Atrial fibrillation: Telemetry monitoring Continued apixaban 5 mg twice daily Metoprolol 37.5 mg daily 4. Hypertension: 5. Lumbar radiculopathy, acute: Adequate analgesia to be provided 6. Hyperlipemia, mixed: 7. Psoriasis: Currently stable no active eruptive skin lesions found on examination 8. Diabetes mellitus: Low-dose sliding scale 9. Chronic venous insufficiency of lower extremity: Continue to monitor, currently stable Leg elevation and compression stocking Primary care physician follow-up at the time of discharge PDMP PDMP Reviewed: Not Reviewed Attestations 2 Medical Necessity Statement*: Patient requires hospitalization for syncope, umbilical hernia Diagnoses Syncope R55 Small bowel obstruction K56.609 Atrial fibrillation I48.91 Hypertension I10 Lumbar radiculopathy, acute M54.16 Hyperlipemia, mixed E78.2 Psoriasis L40.9 Diabetes mellitus E11.9 Chronic venous insufficiency of lower extremity I87.2
[2025-05-31] VITALS (10 sets, daily range): BP systolic 118–147; BP diastolic 70–94; PULSE 79–121; RESP 15–18; TEMP 36.3–37.1; O2SAT 91–98
[2025-05-31] MEDS: metoprolol succinate ER (24 HR) 25 mg Tablet 37.5 MG PO (05:28)
[2025-05-31] MEDS: alum-mag-hydroxide-sime 30 mL UDC 15 ML PO ×2 (05:28→09:28)
[2025-05-31] MEDS: metroNIDAZOLE IV 500 MG/100 ML PREMIX 100 MG IV ×2 (05:31→14:16)
[2025-05-31 06:01] LABS: Hematocrit 41.0 % (37-53); Hemoglobin 13.50 g/dL (11.27-16.99); Mean Corpuscular HGB Conc 32.9 g/dL (30-55); Mean Corpuscular Hemoglobin 31.7 pg (27-33); Mean Corpuscular Volume 96.2 fl (82-101); Nucleated Red Blood Cells % 0 %; Platelet Count 136 10^3/cmm (157-399); Red Blood Count 4.26 10^6/uL (3.85-5.65); White Blood Count 6.79 10^3/uL (3.29-11.43)
[2025-05-31 06:27] LABS: Alanine Aminotransferase 88 U/L (0-41); Albumin Level 3.9 g/dL (3.5-5.2); Alkaline Phosphatase 117 U/L (40-130); Anion Gap 13.4 (5-19); Aspartate Amino Transferase 99 U/L (0-40); Blood Urea Nitrogen 10 mg/dL (8-23); Calcium 8.4 mg/dL (8.5-10.5); Carbon Dioxide 27 mmol/L (22-29); Chloride 106 mmol/L (98-107); Creatinine Clr Calc Pharmacy 70.6938; Globulin 2.2 g/dL (1.3-4.6); Glucose 111 mg/dL (65-115); Osmolality Calculated 294 mOsm/kg (285-295); Potassium 4.4 mmol/L (3.5-5.1); Sodium 142 mmol/L (136-145); Total Protein 6.1 g/dL (6.6-8.7)
--- NOTE | 2025-05-31 09:03 | ECG_ITS ---
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 Measurements Intervals [place] Rate: 94 P: 0 MD: 0 QRS: -23 QRSD: 88 T: 10 QT: 348 QTc: 436 Interpretive Statements ATRIAL FIBRILLATION BORDERLINE LEFT AXIS DEVIATION [QRS AXIS < -20] LOW QRS VOLTAGE IN PRECORDIAL LEADS [QRS DEFLECTION < 1.0 mV IN CHEST LEADS] ABNORMAL RHYTHM ECG Compared to ECG 05/30/2025 00:39:36 Low QRS voltage now present Electronically Signed On 06-01-2025 13:00:02 TRUCK CAR AND BUS CLEANER by Ken Diaz M.D. [email or web address]
--- NOTE | 2025-05-31 09:26 | PC.NURSE ---
Checked patients blood sugar at 0926 which is 145. Accucheck not done this am. Patient stated he is not a diabetic and will not take insulin.
--- NOTE | 2025-05-31 09:52 | PC.SOCIAL ---
IMM UPDATED IMM dated and initialed, copy given to patient and copy placed in chart.
--- NOTE | 2025-05-31 13:10 | PC.NURSE ---
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 HR stayed between 90-100, Oxygen approximately 94-95 with no dizziness.
--- NOTE | 2025-05-31 13:40 | PM.DCS ---
Discharge Providers Date of Admission: 05/29/25 20:33 Date of Discharge: May 31, 2025 Attending Provider at Admission: Thomas Ewing MD Attending Provider at Discharge: Payam Delgado MD Primary Care Provider: DIMAS Arvizu Diagnoses at Discharge Discharge Diagnosis 1. Syncope: 2. Small bowel obstruction: 3. Permanent atrial fibrillation: 4. Primary hypertension: 5. Lumbar radiculopathy, acute: 6. Hyperlipemia, mixed: 7. Psoriasis: 8. Diabetes mellitus: 9. Chronic venous insufficiency of lower extremity: Reason for Visit Reason for Visit: syncope Hospital Course Hospital Course This is a 80-year-old male with a past medical history of's type 2 diabetes mellitus, atrial fibrillation, who presents [facility] for presyncope, Presyncope - Positive orthostatic vitals - Potentially related to polypharmacy, beta-marti dose decreased, losartan discontinued received IV fluids -Overall clinically improved CT head was unremarkable for any acute stroke Cardiac echocardiogram CONCLUSIONS Normal left ventricular size, systolic function and wall thickness, with no regional wall motion abnormalities. Left ventricular ejection fraction is estimated at 60 %. In the presence of atrial fibrillation diastolic function cannot be assessed accurately. Moderately increased left atrial size. No significant valve abnormalities. There is no pericardial effusion. Right atrial pressure is around 5 mm of mercury. Carotid artery ultrasound CONCLUSIONS Right ICA stenosis <50%. Mild to moderate atheromatous plaque right carotid bulb/ICA. Left ICA stenosis <50%. Mild to moderate atheromatous plaque left carotid bulb/ICA. Normal antegrade Doppler flow noted in the right vertebral artery. Normal antegrade Doppler flow noted in the left vertebral artery. OT PT evaluation Discharged with close follow-up with primary care Small bowel obstruction: CT/CT abdomen pelvis wo con [id number] IMPRESSION: Findings of incarcerated umbilical hernia containing small bowel there appears thickened edematous with findings of partial small bowel obstruction. Vascular compromise within both small bowel can not be excluded consider further workup to include surgical evaluation. Normal appendix Stable dilation of the infrarenal aorta as above noted for follow-up guidelines see below statement: -Patient's incarcerated umbilical hernia was reduced in the emergency room Surgery on consult, recommended medical management outpatient follow-up with general surgery Serial abdominal exams during hospitalization Ciprofloxacin and metronidazole Monitor intake and output Continue on diet as per the surgeon plan, started on GI soft diet -On discharge patient is having bowel movements, passing gas, no abdominal pain -Discussed with patient that if he develops symptoms of an incarcerated umbilical hernia which is sudden onset of abdominal pain, lack of bowel movement, and his hernia is not reducible, this is a surgical emergency and he should come immediately to the emergency room -Follow-up with general surgery as outpatient Physical Exam Const: COMMON NORMALS: no acute distress and patient oriented x3 Eye: COMMON NORMALS: Equal, round and reactive pupils present and EOMs intact bilaterally PUPIL: Yes Equal, round and reactive pupils present Resp: COMMON NORMALS: normal respiratory effort, No retractions, No use of accessory muscles and clear to auscultation bilaterally AUSCULTATION: clear to auscultation bilaterally Cardio: COMMON NORMALS: regular rate, regular rhythm, S1 normal heart sound present and S2 normal heart sound present RATE: regular rate RHYTHM: regular rhythm HEART SOUNDS: S1 normal heart sound present and S2 normal heart sound present GI: COMMON NORMALS: Normal to inspection, nondistended, normoactive bowel sounds present and non-tender OTHER: Umbilical hernia reducible, no pain no overlying skin changes Extremity: COMMON NORMALS: no calf tenderness and no pedal edema Neuro: COMMON NORMALS: patient oriented x3, CN's II-XII intact bilaterally, moves all extremities and no focal motor deficits Psych: COMMON NORMALS: mental status grossly normal Discharge Data Studies Completed and Pending Completed Studies During Hospitalization Category Date Time Status CT abdomen pelvis wo con [id number] Stat Cat Scan 05/29/25 18:[address] head wo con* [id number] Stat Cat Scan 05/29/25 21:58 Completed XR chest 1V portable [id number] Stat Exams 05/29/25 17:46 Completed CV. echo complete* [id number] Routine Ultrasound 05/29/25 21:57 Completed Pending at discharge Category Date Time Status Blood Culture Stat Lab 05/29/25 18:09 Results Complete Blood Count w/Auto AM LABS Lab 06/01/25 04:00 Ordered Complete Blood Count w/Auto AM LABS Lab 06/02/25 04:00 Ordered Comprehensive Metabolic Panel AM LABS Lab 06/01/25 04:00 Ordered Comprehensive Metabolic Panel AM LABS Lab 06/02/25 04:00 Ordered CV carotid duplex BI* [id number] Routine Ultrasound 05/29/25 21:57 Taken Radiology Impressions Chest X-Ray 05/29/25 17:46 IMPRESSION: No acute findings. Abdomen/Pelvis CT 05/29/25 18:20 IMPRESSION: Findings of incarcerated umbilical hernia containing small bowel there appears thickened edematous with findings of partial small bowel obstruction. Vascular compromise within both small bowel can not be excluded consider further workup to include surgical evaluation. Normal appendix Stable dilation of the infrarenal aorta as above noted for follow-up guidelines see below statement: Follow-up imaging in 5 years is recommended. COMMENT: THIS REPORT CONTAINS FINDINGS THAT MAY BE CRITICAL TO PATIENT CARE. The exam findings were verbally communicated by me to BROOKE NUNES via telephone conference at 7:23 PM PERSONAL FINANCE INSTRUCTOR on 05/29/2025. The findings were acknowledged and understood. Head CT 05/29/25 21:58 IMPRESSION: No acute intracranial abnormality. Laboratory Results WBC 6.79 10^3/uL (3.29-11.43) 05/31/25 05:42 RBC 4.26 10^6/uL (3.85-5.65) 05/31/25 05:42 Hgb 13.50 g/dL (11.27-16.99) 05/31/25 05:42 Hct 41.0 % (37-53) 05/31/25 05:42 MCV 96.2 fl (82-101) 05/31/25 05:42 MCH 31.7 pg (27-33) 05/31/25 05:42 MCHC 32.9 g/dL (30-55) 05/31/25 05:42 RDW 12.5 % (12.1-15.1) 05/31/25 05:42 Plt Count 136 10^3/cmm (157-399) L 05/31/25 05:42 MPV 10.0 fL (7.4-10.4) 05/31/25 05:42 Neut % (Auto) 71.4 % 05/31/25 05:42 Lymph % (Auto) 19.3 % 05/31/25 05:42 [place] % (Auto) 5.9 % 05/31/25 05:42 Eos % (Auto) 2.7 % 05/31/25 05:42 Baso % (Auto) 0.4 % 05/31/25 05:42 Neut # (Auto) 4.85 10^3/uL (1.8-7.7) 05/31/25 05:42 Lymph # (Auto) 1.3 10^3/uL (0.8-4.8) 05/31/25 05:42 [place] # (Auto) 0.4 10^3/uL (0.2-0.9) 05/31/25 05:42 Eos # (Auto) 0.2 10^3/uL (0.0-0.8) 05/31/25 05:42 Baso # (Auto) 0.0 10^3/uL (0.0-0.1) 05/31/25 05:42 Nucleated RBC % (auto) 0 % 05/31/25 05:42 Nucleated RBCs # 0.0 /100WBC 05/31/25 05:42 Sodium 142 mmol/L (136-145) 05/31/25 05:42 Potassium 4.4 mmol/L (3.5-5.1) 05/31/25 05:42 Chloride 106 mmol/L (98-107) 05/31/25 05:42 Carbon Dioxide 27 mmol/L (22-29) 05/31/25 05:42 Anion Gap 13.4 (5-19) 05/31/25 05:42 BUN 10 mg/dL (8-23) 05/31/25 05:42 Creatinine 0.8 mg/dL (0.7-1.2) 05/31/25 05:42 GFR Calculation Not Reportable 05/31/25 05:42 Glucose 111 mg/dL (65-115) 05/31/25 05:42 POC Glucose 145 mg/dL (70-110) H 05/31/25 09:25 Calculated Osmolality 294 mOsm/kg (285-295) 05/31/25 05:42 Lactic Acid 1.7 mmol/L (0.5-2.2) 05/29/25 18:07 Calcium 8.4 mg/dL (8.5-10.5) L 05/31/25 05:42 Phosphorus 3.3 mg/dL (2.5-4.5) 05/30/25 01:00 Magnesium 2.1 mg/dL (1.7-2.3) 05/30/25 01:00 Total Bilirubin 0.6 mg/dL (0.15-1.2) 05/31/25 05:42 AST 99 U/L (0-40) H 05/31/25 05:42 ALT 88 U/L (0-41) H 05/31/25 05:42 Alkaline Phosphatase 117 U/L (40-130) 05/31/25 05:42 Troponin T Baseline 34 ng/L (0-15) H 05/29/25 18:07 Troponin T 120 Minute 28.49 ng/L (0-15) H 05/29/25 19:53 Delta Troponin T -5.51 ABS# (0-10) L 05/29/25 19:53 Troponin T Hi Sens 6Hr 31.86 ng/L (0-15) H 05/30/25 01:00 Troponin T Hi Sens 6Hr Delta -2.14 ng/L (0-12) L 05/30/25 01:00 NT-Pro-B Natriuret Pep 948 pg/mL (0-450) H 05/29/25 18:07 Total Protein 6.1 g/dL (6.6-8.7) L 05/31/25 05:42 Albumin 3.9 g/dL (3.5-5.2) 05/31/25 05:42 Globulin 2.2 g/dL (1.3-4.6) 05/31/25 05:42 TSH 5.11 uIU/mL (0.27-4.20) H 05/30/25 01:00 Urine Color Yellow (Yellow) 05/29/25 19:53 Urine Appearance Clear (CLEAR) 05/29/25 19:53 Urine pH 7.5 (5-7) 05/29/25 19:53 Ur Specific [place] 1.007 (1.005-1.030) 05/29/25 19:53 Urine Protein Negative (Negative) 05/29/25 19:53 Urine Glucose (UA) Negative (Normal) 05/29/25 19:53 Urine Ketones Negative (Negative) 05/29/25 19:53 Urine Blood Negative (Negative) 05/29/25 19:53 Urine Nitrate Negative (Negative) 05/29/25 19:53 Urine Bilirubin Negative (Negative) 05/29/25 19:53 Urine Urobilinogen 0.2 mg/dL (Negative) 05/29/25 19:53 Ur Leukocyte Esterase Negative (Negative) 05/29/25 19:53 Urine RBC 0-2 /hpf (0-2) 05/29/25 19:53 Urine WBC 0-5 /hpf (0-5) 05/29/25 19:53 Ur Squamous Epith Cells 0-5 /hpf (0-5) 05/29/25 19:53 Amorphous Sediment Not Reportable 05/29/25 19:53 Urine Bacteria None seen /hpf (NONE) 05/29/25 19:53 Hyaline Casts 0.40 /lpf 05/29/25 19:53 Vitals Last Vital Signs Temp 98.0 F 05/31/25 11:10 Pulse 88 05/31/25 11:10 Resp 16 05/31/25 11:10 BP 118/80 05/31/25 11:10 Pulse Ox 96 05/31/25 11:10 O2 Del Method Room Air 05/31/25 11:10 Discharge Plan Discharge Patient Disposition: Home Condition: Stable Prescriptions: New metoprolol succinate 25 mg Tablet Extended Release 24 Hr 25 mg PO DAILY 30 Days Qty: 30 0RF ciprofloxacin HCl 500 mg tablet 500 mg PO BID 7 Days Qty: 14 0RF metronidazole 500 mg tablet 500 mg PO Q8H 7 Days Qty: 21 0RF Continued gabapentin 300 mg capsule 600 mg PO BID apixaban 5 mg tablet 5 mg PO BID multivitamin Tablet 1 tab PO DAILY Ultra CoQ10 75 mg capsule 75 mg PO DAILY Ozempic 1 mg/dose (4 mg/3 mL) pen injector See Rx Instructions .ROUTE .COMPLEX Qty: 3 3RF Dose Instruction: INJECT 1MG UNDER THE SKIN EVERY WEEK Rx Instructions: INJECT 1MG UNDER THE SKIN EVERY WEEK fluticasone propion-salmeterol [Wixela Inhub] 250-50 mcg/dose Blister With Device 1 inh INHALATION BID PRN (Reason: Shortness Of Breath) krill oil 500 mg Capsule 500 mg PO DAILY Super Beta Prostate 1 cap PO DAILY prednisolone acetate 1 % drops,suspension See Rx Instructions .ROUTE .COMPLEX Rx Instructions: Instill 1 drop into the left eye 4 times daily for 2 weeks, then 1 drop 3 times daily for 2 weeks, then 1 drop twice daily for 2 weeks, then 1 drop daily. Stop on 06/17 25 ketorolac 0.5 % drops 1 drp ophthalmic (eye) QID Discontinued losartan 50 mg tablet 25 mg PO ONCE Qty: 90 3RF Rx Instructions: daily metoprolol succinate 100 mg Tablet Extended Release 24 Hr 50 mg PO DAILY No Action (DME) Dexcom G7 Sensor Device See Rx Instructions .ROUTE .MEDSUPPLY Qty: 9 3RF Rx Instructions: Change every 10days Discharge Order = DC NOW: Discharge Order (Routine); Ordered 05/31/25 Ordered By: Payam Delgado Referrals: Amos Martinez MD [Physician, General Surgery] - 1-3 days Referral Note: We have notified your physician's clinic of the need for a follow-up appointment to be scheduled. If you have not heard from them within the next 2 business days, please call them directly. Sommer Klein FNP [Primary Care Provider, Nurse Practitioner] - 06/03/25 11:30 am Referral Note: Discharge Diet: Cardiac Discharge Activity: Resume usual activity Patient Instructions: Ciprofloxacin (By mouth), Metoprolol (By mouth), Metronidazole (By mouth), A-fib (Atrial Fibrillation) (DC), Bowel Obstruction (DC), Opioid Safety, Patient Portal & [place] Instructions Activity Restrictions/Additional Instructions: - Please monitor for Lightheadedness and dizziness, if so, to the hospital - Please follow-up with general surgery for hernia - If you have abdominal pain, with lack of bowel movement this is a surgical emergency, the hospital - I have shown you how to reduce the hernia, if you feel that it has become incarcerated - Nonetheless if it does please come back to the emergency room immediately - Please hydrate well Discharge Attestations Time Spent in Discharge Care*: greater than 30 min Quality Metrics Clinical Quality Measures [ No reported AMI, CVA or VTE this stay] Coding Level of Care Code 88134 Total time (in minutes) for Discharge: 45 Diagnoses Syncope R55 Small bowel obstruction K56.609 Permanent atrial fibrillation I48.21 Atrial fibrillation type: permanent Primary hypertension I10 Hypertension type: primary hypertension Lumbar radiculopathy, acute M54.16 Hyperlipemia, mixed E78.2 Psoriasis L40.9 Diabetes mellitus E11.9 Chronic venous insufficiency of lower extremity I87.2
== END 2025-05-31 17:39 | disposition home health service (06) | DRG 389 ==
LOC: ER 21:02 → MEDSURG 21:54
PROVIDERS: Admitting Provider Student in an Organized Health Care Education/Training Program; Emergency Provider Emergency Medicine; PCP Nurse Practitioner; Visit Provider Family Medicine
DX: K56.609 Unspecified intestinal obstruction, unspecified as to partial versus complete obstruction (principal); I48.21 Permanent atrial fibrillation; K42.0 Umbilical hernia with obstruction, without gangrene; I10 Essential (primary) hypertension; M54.16 Radiculopathy, lumbar region; E78.2 Mixed hyperlipidemia; L40.9 Psoriasis, unspecified; E11.51 Type 2 diabetes mellitus with diabetic peripheral angiopathy without gangrene; Z79.01 Long term (current) use of anticoagulants; Z79.85 Long-term (current) use of injectable non-insulin antidiabetic drugs; L40.0 Psoriasis vulgaris; M05.9 Rheumatoid arthritis with rheumatoid factor, unspecified; Z87.891 Personal history of nicotine dependence; M81.0 Age-related osteoporosis without current pathological fracture
CPT/HCPCS: 36415; 36416; 70450; 71045; 74176; 80053; 81001; 82962; 83605; 83735; 83880; 84100; 84443; 84484; 85025; 87040; 93005; 93306; 93880; 96365; 96367; 96375; 97110; 97116; 97161; 97166; 97535; 99285; J0744; J2470; J3490; J7030; J7120; J9999

== ENCOUNTER → 2025-06-17 13:39 | Outpatient (BNVA) | payer OTHER, SELFPAY | PROVIDERS: PCP Nurse Practitioner; Visit Provider Internal Medicine | DX: I48.91 Unspecified atrial fibrillation (principal); E78.2 Mixed hyperlipidemia; R06.09 Other forms of dyspnea; E11.9 Type 2 diabetes mellitus without complications; Z79.01 Long term (current) use of anticoagulants; Z87.891 Personal history of nicotine dependence | CPT/HCPCS: 99214 ==

== ENCOUNTER 2025-06-25 08:11 | Outpatient (CLI) | payer OTHER, SELFPAY ==
--- NOTE | 2025-06-25 08:00 | CT_ITS ---
WS: [id number] CT ABDOMEN AND PELVIS WITH CONTRAST HISTORY: umbilical hernia TECHNIQUE: Imaging performed of the abdomen and pelvis with IV contrast. Single phase imaging of the abdomen. Coronal and sagittal reformats are submitted. All CT scans at [facility] use at least one of these dose optimization techniques: automated exposure control; mA and/or kV adjustment per patient size (includes targeted exams where dose is matched to clinical indication); or iterative reconstruction. IV CONTRAST: Omnipaque 350; 100 mL IV. Oral contrast: No DLP: 291.28 mGy.cm COMPARISON: 05/29/2025 Lower thorax: Lung bases are clear. Mild cardiomegaly. Small hiatal hernia. Liver/biliary system: Normal size liver. There are a few very tiny scattered hypoechoic dense nodules. Focal fatty sparing along the falciform ligament. Normal portal vein. No intrahepatic duct dilatation. Gallbladder: Prior cholecystectomy. Pancreas: Diffuse pancreatic atrophy. Normal pancreatic duct. Spleen: Normal size spleen. No mass or infarct. Adrenal glands: Normal. Right kidney: Normal. Left kidney: Normal size kidney with no obstruction. 10 mm cyst upper pole. Aorta: Ectatic abdominal aorta with atherosclerotic plaque. Lymphadenopathy: None. Free fluid: None. GI tract: No obstruction. No colitis identified. Normal appendix. The small bowel loop protruding through the umbilical hernia has been reduced. There is now omental fat extending through the small orifice. The hernia orifice is 8 mm in transverse diameter. Small amount of stranding within the omental fat herniating through the defect persists but there is no fluid in the hernia sac. Abdominal wall: See above GI tract. Pelvis: Patent RIGHT inguinal canal containing fat only. Urinary bladder is well distended. There is marked thickening and lobulation of the prostate gland encroaching into the bladder. There is also an area of asymmetric wall thickening involving the RIGHT lateral urinary bladder measuring up to 10 mm which needs to be further evaluated. There is enhancement which was not appreciated on the noncontrast study from 05/29/2025. Bones: Increase in lumbar lordosis. Facet joint arthritis. L4 anterolisthesis by [address]/CT abdomen pelvis w con* [id number] IMPRESSION: 1. Interval reduction of the previously described umbilical hernia containing small bowel. No GI tract obstruction or ischemic changes identified. 2. Mild fat stranding in the umbilical hernia which now contains omental fat o nly. This stranding can be seen with fat necrosis. There is no fluid present. 3. Asymmetric RIGHT lateral urinary bladder wall thickening up to 10 mm needs to be further evaluated for possible uroepithelial lesion of the urinary bladde r. Recommend cystoscopy evaluation. 4. Fat-containing RIGHT inguinal hernia. 5. Prior cholecystectomy.
[2025-06-25] MEDS: iohexol 350 mg/mL 500 mL Btl (per mL) IV (08:37)
== END 2025-06-25 08:12 | disposition home or self-care (01) ==
LOC: RAD 08:13
PROVIDERS: PCP Nurse Practitioner; Visit Provider Student in an Organized Health Care Education/Training Program
DX: K42.9 Umbilical hernia without obstruction or gangrene (principal); N32.89 Other specified disorders of bladder; K40.90 Unilateral inguinal hernia, without obstruction or gangrene, not specified as recurrent; Z90.49 Acquired absence of other specified parts of digestive tract; M40.46 Postural lordosis, lumbar region; M47.816 Spondylosis without myelopathy or radiculopathy, lumbar region
CPT/HCPCS: 74177

== ENCOUNTER 2025-07-03 05:52 | Day surgery (SDC) | payer OTHER, SELFPAY ==
[2025-07-03] VITALS (11 sets, daily range): BP systolic 106–141; BP diastolic 65–103; PULSE 90–109; RESP 16–95; TEMP 36.5–36.6; O2SAT 95–99; BMI 24.0
--- NOTE | 2025-07-03 06:18 | ANES.PREANE2 ---
Pre-Anesthetic Assessment Height/Weight: Height 5 ft 6 in Temp Pulse Resp BP Pulse Ox O2 Del Method 97.7 F 90 18 141/103 99 Room Air 07/03/25 06:15 07/03/25 06:15 07/03/25 06:15 07/03/25 06:15 07/03/25 06:15 07/03/25 06:15 Preop Diagnosis: Umbilical hernia Operation Date: 07/03/25 07:00 Proposed Procedures p Open Umbilical Hernia Repair w/ Mesh 04936 K42.9(Not Applicable) - Amos Martinez MD Was Beta La taken within 24 hours: N/A Was Clonidine taken within 24 hours: N/A Social No alcohol and No tobacco Exam alert, oriented x 3, clear to auscultation bilaterally and regular rate & rhythm Airway Submandibular: within normal limits Cervical ROM: within normal limits Mallampati: Class I Comments: Comments: Edentulous, daniel Anesthetic Plan ASA status: 3 Anesthesia: General Other: No prior issues with anesthesia NPO since yesterday evening History of hypertension on metoprolol Chronic A-fib. On chronic apixaban. Last taken 07/01/2025 Patient takes Ozempic for weight loss. Last taken 06/21/2025. Patient states he has lost over 100 pounds on this Patient no longer has diabetes per rehabilitation manager since his weight loss Rheumatoid arthritis, states he has no issues with this Labs reviewed from 05/31/2025 and acceptable for procedure EKG showing A-fib Echo from May showing EF of 60% Plan for general anesthesia Medications/Allergies Home Medications ?Medication ?Instructions ?Recorded ?Confirmed ?Last Taken ?Type apixaban 5 mg tablet 5 mg PO BID 04/09/21 07/02/25 07/01/25 History gabapentin 300 mg capsule 600 mg PO BID 04/28/21 07/02/25 07/02/25 History coenzyme Q10 75 mg capsule (Ultra 75 mg PO DAILY 10/15/21 07/02/25 07/02/25 History CoQ10) multivitamin 1 tab PO DAILY 10/15/21 07/02/25 07/02/25 History krill oil 500 mg capsule 500 mg PO DAILY 06/18/23 07/02/25 07/02/25 History blood-glucose sensor (Dexcom G7 #9 ea 09/24/24 06/17/25 Unknown Rx Sensor device) ketorolac 0.5 % eye drops 1 drp ophthalmic (eye) QID 05/30/25 07/02/25 07/02/25 History prednisolone acetate 1 % eye 1 drp ophthalmic (eye) DIRECTED 05/30/25 07/02/25 07/02/25 History drops,suspension metoprolol succinate 25 mg 25 mg PO DAILY 07/02/25 07/02/25 06/25/25 History tablet,extended release 24 hr semaglutide 1 mg/dose (4 mg/3 mL) 1 mg SUBCUT .WEEKLY 07/02/25 07/02/25 06/21/25 History subcutaneous pen injector (Ozempic) Allergies Allergy/AdvReac Type Severity Reaction Status Date / Time flunisolide Allergy Unknown Verified 06/17/25 12:57 gemfibrozil Allergy Unknown Verified 06/17/25 12:57 metformin Allergy unknown Verified 06/17/25 12:57 Penicillins Allergy ALGY-Rash Verified 06/17/25 12:57 pregabalin Allergy unknown Verified 06/17/25 12:57 rofecoxib Allergy Unknown Verified 06/17/25 12:57 methotrexate AdvReac Mild ADR-Cough Verified 06/17/25 12:57 oxycodone AdvReac Mild ADR-Gastrointestinal Verified 06/17/25 12:57 [facility] Medical History Plaque psoriasis Seropositive rheumatoid arthritis of multiple sites Psoriasis Acute carpal tunnel syndrome of right wrist Acute carpal tunnel syndrome of left wrist History of [place] spotted fever High risk medication use Immunization counseling Acute joint pain Acute back pain with sciatica Encounter for long-term opiate analgesic use Diabetes mellitus Hyperlipidemia Post-traumatic arthritis of left ankle Venous stasis Thoracic outlet syndrome PVD (peripheral vascular disease) Other instability, left ankle Acquired hammer toe Surgical History History of ear surgery right ear cyst removal History of cholecystectomy History of angioplasty Family History Other CAD (coronary artery disease) Cancer Diabetes Hyperlipidemia Hypertension Denies family history of Rheumatoid arthritis Lupus Social History (Reviewed 06/17/25 @ 14:41 by Hunter Troncoso Smoking and tobacco/nicotine status: former use of tobacco/nicotine Quit status (tobacco/nicotine): has quit using Year quit tobacco: 1989 Former quit date comment: 1 ppd x 30 years Second hand smoke exposure: No Alcohol intake: never Substance/Drug Use: never Data Anesthesia Cardiac Studies: Echocardiogram 05/29/25 Sestamibi Stress Test (Cardiology) 05/14/21
--- NOTE | 2025-07-03 07:02 | W.PM.OPSUD ---
Surgery/Procedure H&P Update DATE OF PROCEDURE: July 03, 2025 DATE H&P PERFORMED: 06/17/25 H&P UPDATE INFORMATION: I have reviewed H&P completed within last 30 days, I have examined patient prior to procedure, No changes to prior documentation and Risks and benefits of the procedure reviewed CHANGES TO PREVIOUS DOCUMENTATION: I had an extensive discussion with the patient and answered all questions. I have discussed non operative/non procedural options and the patient still decides to proceed. Discussed risks and benefits of open umbilical hernia repair with mesh and patient decides to proceed. Patient understands the risks include bleeding, infection, hernia recurrence, bowel injury. PREOP DIAGNOSIS: Umbilical hernia PLANNED PROCEDURE: Operation Date: 07/03/25 07:00 Proposed Procedures p Open Umbilical Hernia Repair w/ Mesh 11038 K42.9(Not Applicable) - Amos Martinez MD
[2025-07-03] MEDS: BUPivacaine 0.5% INJ 10 mL INJECTION (07:37)
[2025-07-03] MEDS: lidocaine-epi 1% 20 mL INJ 10 ML INJECTION (07:38)
--- NOTE | 2025-07-03 07:42 | P.OP_ITS ---
Operative Report Date of procedure: July 03, 2025 Pre-op diagnosis: Umbilical hernia Post-op diagnosis: same Post-op findings: 2 cm umbilical hernia. Reduced hernia sac into the abdomen. Repaired hernia defect using 4.[address] mesh. Procedure done: Open umbilical hernia repair with mesh Implants: Ventralex ST mesh 4.3 cm Specimens removed/disposition: N/A Pathology: none sent Surgeon: Amos Martinez MD Knowledge Management Advisor: N/A Anesthesia: MAC Estimated blood loss (mL): 5 Complications: N/A Findings: 2 cm umbilical hernia. Reduced hernia sac into the abdomen. Repaired hernia defect using 4.[address] mesh. Condition: stable Disposition: same day Brief History: 80-year-old male who presented with symptomatic umbilical hernia. Discussed risk benefits and patient agreed to proceed with open umbilical hernia repair with mesh. Procedure: Consent was obtained in the preop area. Patient was transferred to the OR and laid supine. SCDs were on and working. Preoperative antibiotics were administered. General anesthesia was induced. The abdomen was prepped and draped in usual sterile fashion. A 3 cm curvilinear incision at the umbilicus was carried out with a scalpel. Electrocautery was used to dissect down to the fascial layer. Blunt dissection was used to dissect around the hernia defect. Skin was dissected off hernia sac using electrocautery. Hernia contents consisted of fat only and these were reduced into the abdominal cavity. Electrocautery was used to freshen up the fascial edges. A 2 cm fascial defect was found. A 4.[address] mesh was used to repair the fascial defect. The fascia was then closed anterior to the Ventralex ST mesh using continuous 2- 0 Ethibond. The mesh was fixed to the fascia by incorporating the flap with a few bites of the 2-0 Ethibond. Adequate hemostasis was achieved using electrocautery. The umbilicus was recreated using a 2-0 Vicryl by suturing the dermis to the fascia. The deep dermal layer was closed using 3-0 Vicryl. Skin was closed using subcuticular 4-0 Monocryl. Surgical glue was applied. A sterile dressing was applied. The patient woke up from anesthesia without any complications.
[2025-07-03] MEDS: fentaNYL 50 mcg/mL INJ 2mL IVP (08:00)
[2025-07-03] MEDS: oxyCODONE 5 mg IR Tab/Cap PO (08:53)
--- NOTE | 2025-07-03 09:25 | ANE.PACU2 ---
Inpatient post-anesthesia follow up: Airway intact: Yes Vital signs: Temperature 98 F Pulse Rate 92 Respiratory Rate 18 Blood Pressure 116/72 Pulse Oximetry 97 Oxygen Delivery Me thod Room Air Oxygen Flow Rate Fraction of Inspir ed Oxygen Hydration adequate: Yes Nausea and vomiting: No Pain level: 1 Mental status: Baseline
== END 2025-07-03 09:25 | disposition home or self-care (01) ==
PROVIDERS: PCP Nurse Practitioner; Visit Provider Student in an Organized Health Care Education/Training Program
PROC: (CPT 49591; principal; 2025-07-03 07:00)
DX: K42.9 Umbilical hernia without obstruction or gangrene (principal); I10 Essential (primary) hypertension; I48.20 Chronic atrial fibrillation, unspecified; M06.9 Rheumatoid arthritis, unspecified; Z86.39 Personal history of other endocrine, nutritional and metabolic disease; Z79.891 Long term (current) use of opiate analgesic; E78.5 Hyperlipidemia, unspecified; I73.9 Peripheral vascular disease, unspecified; Z87.891 Personal history of nicotine dependence
CPT/HCPCS: 49591; 36416; 82962; C1781; J1100; J2250; J2405; J2704; J3010; J3373; J3490; J7030; J9999

== ENCOUNTER → 2025-07-15 07:36 | Outpatient (BNVA) | payer OTHER, SELFPAY | PROVIDERS: PCP Nurse Practitioner; Visit Provider Student in an Organized Health Care Education/Training Program | DX: Z98.890 Other specified postprocedural states (principal) | CPT/HCPCS: 99024 ==